=== PATIENT | female | born 1995 | race Caucasian/White ===

== ENCOUNTER 2023-09-29 09:46 | Outpatient (OUT) | payer OTHER, SELFPAY ==
--- NOTE | 2023-09-29 09:54 | US_ITS ---
Patient Name: INNA RAMESH MR#: [id number] : 1995 Exam Date: 09/29/2023 Ordering Doctor: DR Brian Fernandez . RADIOLOGY REPORT PROCEDURE: MM TOMOSYNTHESIS DIAGNOSTIC BI, 09/29/2023, 10:36 US BREAST RT LIMITED, 09/29/2023, 09:20 COMPARISON: None. INDICATIONS: Breast Mass N63.0 Calculator Name NCI Breast Cancer Risk Assessment Tool 5 Year Breast Cancer Risk Not Reported. Lifetime Breast Cancer Risk Not Reported. Personal Breast Cancer No Personal Ovarian Cancer No Treatments None Family Cancers None LOCATION: [facility] BREAST COMPOSITION: Extremely dense, which lowers the sensitivity of mammography. FINDINGS: DIAGNOSTIC CATEGORY 1--NEGATIVE. RIGHT BREAST: No suspicious finding on mammographic and ultrasound evaluation. No abnormal or suspicious findings to account for patient's palpable lump. LEFT BREAST: No suspicious finding. RECOMMENDATIONS: CLINICAL EVALUATION. PLEASE NOTE: A NORMAL MAMMOGRAM DOES NOT EXCLUDE THE POSSIBILITY OF BREAST CANCER. A CLINICALLY SUSPICIOUS PALPABLE LUMP SHOULD BE BIOPSIED. Dictated by: Anthony Mccarthy M.D. on 09/29/2023 at 11:06 Approved by: Anthony Mccarthy M.D. on 09/29/2023 at 11:08
== END 2023-09-29 09:47 | disposition home or self-care (01) ==
LOC: MAMMO 09:48
PROVIDERS: PCP Family Medicine; Visit Provider Family Medicine
DX: N63.0 Unspecified lump in unspecified breast (principal)
CPT/HCPCS: 76642; 77066; G0279

== ENCOUNTER 2024-03-10 13:57 | Outpatient (REF) | payer OTHER, SELFPAY ==
--- OUTSIDE RECORDS SUMMARY | 2024-03-10 14:11 | XMS_ITS | CCD ---
Author Organization [facility] Care Team Providers Care Bioinformatics Associate Name Role Phone MD Chinmay Fernandez Primary Care Provider [phone] MD Christian Birch Jr Emergency Provider MD Chinmay Fernandez Primary Care Provider [phone] BHAVAN Jacobson Emergency Provider [phone] Christian Birch Jr Admitting Unavailable Christian Birch Jr Attending Unavailable Chinmay Fernandez Primary Care Unavailable Robert Jacobson Admitting Unavailable Robert Jacobson Attending Unavailable Chinmay Fernandez Primary Care Unavailable HOY ., DR MOY Admitting Unavailable HOY ., DR MOY Attending Unavailable HOY ., DR MOY Primary Care Unavailable HOY ., DR MOY Attending Unavailable HOY ., DR MOY Consulting Unavailable HOY ., DR MOY Primary Care Unavailable HOY ., DR MOY Admitting Unavailable DAVIS[place], DR LOR Celestin Consulting Unavailable KARASIK ., DR OCHOA Admitting Unavailabl e HOY ., DR MOY Primary Care Unavailable KARASIK ., DR OCHOA Attending Unavailabl e KARASIK ., DR OCHOA Consulting Unavailabl e HOY ., DR MOY Attending Unavailable HOY ., DR MOY Consulting Unavailable HOY ., DR MOY Primary Care Unavailable HOY ., DR MOY Admitting Unavailable ZIEBER, DR CHRISTIAN Villatoro Consulting Unavailable HOY ., DR MOY Attending Unavailable HOY ., DR MOY Consulting Unavailable HOY ., DR MOY Primary Care Unavailable HOY ., DR MOY Admitting Unavailable HOY ., DR MOY Primary Care Unavailable DIAB ., CONNIE Admitting Unavailable RUPA WEIR Consulting Unavaila ble DIAB ., CONNIE Attending Unavailable DIAB ., CONNIE Consulting Unavailable HAY ., DR JENSEN Admitting Unavailable GRECHNY .ISABEL Consulting UnavailPatrick Ernandez, DR JENSEN Attending Unavailable KARINA Ernandez, DR MOY Primary Care Unavailable CLARISSA PETTIT Consulting Unavailable REBA DELEON Consulting Unavailable DR CHINMAY ALMONTE Primary Care Unavailable VALENTINA, DR MADISON Admitting Unavailable VALENTINA, DR MADISON Attending Unavailable VALENTINA, DR MADISON Consulting Unavailable Ayo MCCOLLUM Attending Unavailable VICTOR HUGO WADE Attending Unavailable Allergies Allergy Classification Reported Allergen(s) Allergy Type Date of Onset Reaction(s) Facility (5 sources) Amoxicillin; Translations: [amoxicillin] Drug Allergy 01-14-2014 [facility] Medications Current Medications Medication Drug Class(es) Dates Sig (Normalized) Sig (Original) acetaminophen 325 mg / oxyCODONE hydrochloride 5 mg oral tablet (1 source) Opioid Agonist Start: 10-29-2022 take 1 tablet by mouth every six hours Oxycodone-Acetam inophen (Percocet) 5-325 mg tablet Active 1 TAB PO Q6H 10 October 29, 2022 cephalexin 500 mg oral capsule (1 source) Cephalosporin Antibacterial Start: 10-29-2022 take 500 mg by mouth every eight hours Cephalexin Active 500 MG PO Q8H 21 October 29, 2022 12:00am ipratropium bromide 0.042 mg/actuat metered dose nasal spray (2 sources) Anticholinergic Start: 07-27-2022 Ipratropium [place] Active 2 SPRAY INTRANASAL Daily July 27, 2022 1:00am montelukast 10 mg oral tablet (2 sources) Leukotriene Receptor Antagonist Start: 07-27-2022 take 10 mg by mouth once daily Montelukast Active 10 MG PO Daily July 27, 2022 1:00am ondansetron 4 mg disintegrating oral tablet (3 sources) Serotonin-3 Receptor Antagonist Start: 10-29-2022 take 4 mg by mouth four times daily Ondansetron Active 4 MG PO Four times daily October 29, 2022 12:00am Start: 07-28-2022 take 4 mg by mouth e very eight hours Ondansetron Active 4 MG PO Q8H July 28, 2022 1:00am promethazine hydrochloride 25 mg oral tablet (2 sources) Phenothiazine Start: 07-28-2022 take 25 mg by mouth every six hours Promethazine Active 25 MG PO Q6H 15 July 28, 2022 1:00am triamcinolone acetonide 0.055 mg/actuat metered dose nasal spray (2 sources) Corticosteroid Start: 07-27-2022 take 1 spray(s) nasal route once daily Triamcinolone Acetonide (Nasacort) 55 mcg Aerosol,[place] Active 1 SPRAY INTRANASAL Daily July 27, 2022 1:00am administer into each nostril Completed/Discontinued Medications Medication Drug Class(es) Dates Sig (Normalized) Sig (Original) fluconazole 100 mg oral tablet (2 sources) Azole Antifungal Start: 07-27-2022 End: 07-27-2022 Fluconazole Discontinued MG TABLET July 27, 2022 1:00am July 27, 2022 11:14pm Problems Active Problems Problem Classification Problem Date Documented Date Episodic/Chronic Abdominal pain (6 sources) Acute abdominal pain; Translations: [Right upper quadrant pain] Onset: 10-29-2022 10-29-2022 Episodic Asthma (1 source) Unspecified asthma, uncomplicated; Translations: [UNSPECIFIED ASTHMA UNCOMPLICATED] Onset: 10-26-2022 Chronic Fluid and electrolyte disorders (2 sources) Dehydration; Translations: [Dehydration] 07-28-2022 Episodic Menstrual disorders (4 sources) Excessive and frequent menstruation with irregular cycle; Translations: [EXCESS AND FREQ MEN W/IRREG CYCLE] Onset: 06-17-2022 Chronic Nausea and vomiting (6 sources) Nausea and vomiting; Translations: [Nausea with vomiting, unspecified] Onset: 07-27-2022 07-28-2022 Episodic Noninfectious gastroenteritis (1 source) Noninfective gastroenteritis and colitis, unspecified; Translations: [NONINFECTIVE GE AND COLITIS UNS] Onset: 08-18-2022 Episodic Other aftercare (1 source) dedicated intermodal truck driver (current) use of hormonal contraceptives; Translations: [CATERING BARISTA HORMONAL CONTRACEPTIVES] Onset: 10-26-2022 Episodic Other aftercare (1 source) Other fci (current) drug therapy; Translations: [OTH CATERING BARISTA CURRENT DRUG THERAPY] Onset: 10-26-2022 Episodic Unclassified (1 source) CONTACT W/AND (SUSP) EXPOS COVID-19; Translations: [CONTACT W/AND (SUSP) EXPOS COVID-19] Onset: 10-26-2022 Past or Other Problems Problem Classification Problem Date Documented Date Episodic/Chronic Immunizations and screening for infectious disease (1 source) Encounter for screening for human papillomavirus (HPV); Translations: [ENC SCREENING HUMAN PAPILLOMAVIRUS] Onset: 07-02-2022 Episodic Other screening for suspected conditions (not mental disorders or infectious disease) (5 sources) Encounter for screening for malignant neoplasm of cervix; Translations: [Encounter for screening for diabetes mellitus] Onset: 06-29-2022 Episodic Ovarian cyst (5 sources) Other ovarian cyst, right side; Translations: [Other ovarian cyst, left side] Onset: 08-05-2022 Episodic Results Test Name Value Interpretation Reference Range Facility [facility] 12-03-2022 Forms [id number]:127 Normal [facility] Ambulatory Visit Summaryon 0 12-01-2022 Ambulatory Visit Summary SEA WRIGHT :1995 Visit Date:12/01/2022 Ambulatory Visit Instructions Your Care Team Attending Physician - CHUN WATT, Ayo Villatoro Primary Care Physician - Chinmay Fernandez MD This Is Your Medications List Contact prescribing physician if questions or concerns dicyclomine (dicyclomine 20 mg Tab) montelukast (Singulair 10 mg Tab) ondansetron (ondansetron 4 mg Dis Tab) pantoprazole (Protonix 40 mg Tab-DR) sucralfate (sucralfate 1 g Tab) Procedures Performed Colonoscopy (06/07/2019), Esophagogastroduodenoscopy (06/07/2019). Discharge Vitals Heart Rate (Peripheral) 72 Respiratory Rate 16 Blood Pressure 108/56 Height 150.5 cm Height 59 in Weight 48 kg Weight 105.6 lb BMI 21.19 Medications What How Much When Instructions Unchanged dicyclomine (dicyclomine 20 mg Tab) 2 Tablets By Mouth 3 times a day Contact prescribing physician if questions or concerns Unchanged montelukast (Singulair 10 mg Tab) 1 Tablets By Mouth Every day Contact prescribing physician if questions or concerns Unchanged ondansetron (ondansetron 4 mg Dis Tab) 1 Tablets By Mouth 4 times a day as needed for Nausea/Vomiting Contact prescribing physician if questions or concerns Unchanged pantoprazole (Protonix 40 mg Tab-DR) 1 Tablets By Mouth Every day Contact prescribing physician if questions or concerns Unchanged sucralfate (sucralfate 1 g Tab) 1 Tablets By Mouth 4 times a day Contact prescribing physician if questions or concerns Allergies amoxicillin (Rash) Problems Ongoing - Any problem that you are currently receiving treatment for. Antral gastritis Asthma BMI 21.0-21.9, adult History of Clostridium difficile colitis Iron deficiency anemia Scoliosis Seasonal allergic rhinitis Historical - Any problem that you are no longer receiving treatment for. Abdominal pain, colicky Diarrhea Iron deficiency anemia Weight loss Normal [facility] ED Note-Physicianon 12-01-19 ED Note-Physician [id number]:127 [facility] Lab Reportson 11-30-2022 Lab Reports [id number]#[id number]:127 [facility] ED Note-Physicianon 11-13-19 ED Note-Physician [id number]:127 [facility] Patient Correspondenceon Patient Correspondence [id number]:127 [facility] RAD - CT Reporton 11-12-2022 RAD - CT Report [id number]:127 [facility] RAD - CT Report [id number]:127 [facility] RAD - Ultrasound Reporton RAD - Ultrasound Report [id number]:127 [facility] Physician Referralon 023 Physician Referral [id number]#1.00CD:127 [facility] OVA AND PARASITE EXAMINATION on 11-06-2022 Ova + Parasite Exam Final report Normal [facility] Comment on above: Result Comment: Thes e results were obtained using wet preparation(s) and trichrome stained smear. This test does not include testing for Cryptosporidium parvum, Cyclospora, or Microsporidia. Performed By: #### G IPANEL #### [facility] [address] [place] [address] Dr. Adriana Chawla Result 1 Comment Normal [facility] Comment on above: Result Comment: No o va, cysts, or parasites seen. . One negative specimen does not rule out the possibility of a parasitic infection. Performed By: #### G IPANEL #### [facility] [address] [place] [address] Dr. Adriana Chawla GI PANEL (PCR)on 11-03-2022 Adenovirus F 40/41 Not detected Normal NOT DETECTED [facility] Comment on above: Performed By: #### G IPANEL #### [facility] [address] [place] [address] Dr. Adriana Chawla Astrovirus Not detected Normal NOT DETECTED [facility] Comment on above: Performed By: #### G IPANEL #### [facility] [address] [place] [address] Dr. Adriana Chawla C. Diff toxin A/B Detected Critically abnormal NOT DETECTED [facility] Comment on above: Performed By: #### G IPANEL #### [facility] [address] [place] [address] Dr. Adriana Chawla Campylobacter Not detected Normal NOT DETECTED [facility] Comment on above: Performed By: #### G IPANEL #### [facility] [address] [place] [address] Dr. Adriana Chawla Cryptosporidium Not detected Normal NOT DETECTED [facility] Comment on above: Performed By: #### G IPANEL #### [facility] [address] [place] [address] Dr. Adriana Chawla Cyclos. Cayetanensis Not detected Normal NOT DETECTED [facility] Comment on above: Performed By: #### G IPANEL #### [facility] [address] [place] [address] Dr. Adriana Chawla E. Coli O157 Not Applicable Normal Not Applicable [facility] Comment on above: Performed By: #### G IPANEL #### [facility] [address] [place] [address] Dr. Adriana Chawla EAwais histolytica Not detected Normal NOT DETECTED [facility] Comment on above: Performed By: #### G IPANEL #### [facility] [address] [place] [address] Dr. Adriana Chawla EAEC Not detected Normal NOT DETECTED [facility] Comment on above: Performed By: #### G IPANEL #### [facility] [address] [place] [address] Dr. Adriana Chawla EIEC Not detected Normal NOT DETECTED [facility] Comment on above: Performed By: #### G IPANEL #### [facility] [address] [place] [address] Dr. Adriana Chawla EPEC Not detected Normal NOT DETECTED [facility] Comment on above: Performed By: #### G IPANEL #### [facility] [address] [place] [address] Dr. Adriana Chawla ETEC Not detected Normal NOT DETECTED [facility] Comment on above: Performed By: #### G IPANEL #### [facility] [address] [place] [address] Dr. Adriana Nava Lamblia Not detected Normal NOT DETECTED [facility] Comment on above: Performed By: #### G IPANEL #### [facility] [address] [place] [address] Dr. Adriana BAHENA CONTROLS PASSED Normal [facility] Comment on above: Performed By: #### G IPANEL #### [facility] [address] [place] [address] Dr. Adriana HUNTER ARPITA HEADER GI PANEL BACTERIA Normal T [facility] Comment on above: Performed By: #### G IPANEL #### [facility] [address] [place] [address] Dr. Adriana HUNTERHD ECOLI GI PANEL DIARRHEAGEN IC E.COLI / SHIGELLA Normal [facility] Comment on above: Performed By: #### G IPANEL #### [facility] [address] [place] [address] Dr. Adriana PADRON INFO SEE BELOW Normal [facility] Comment on above: Result Comment: EAEC - Enteroaggregative E. Coli EPEC- Enteropathogenic E. Coli ETEC- Enterotoxigenic E. Coli lt/st STEC- Shigella-like toxin-producing E. Coli stx1/stx2 EIEC- Shigella/Enteroinvasive E. Coli Performed By: #### G IPANEL #### [facility] [address] [place] [address] Dr. Adriana PADRON PARASITES GI PANEL PARASITES Normal [facility] Comment on above: Performed By: #### G IPANEL #### [facility] [address] [place] [address] Dr. Adriana PADRON VIRUS GI PANEL VIRUSES Normal [facility] Comment on above: Performed By: #### G IPANEL #### [facility] [address] [place] [address] Dr. Adriana Chawla Norovirus GI/GII Not detected Normal NOT DETECTED [facility] Comment on above: Performed By: #### G IPANEL #### [facility] [address] [place] [address] Dr. Adriana Chawla P. Shigelloides Not detected Normal NOT DETECTED [facility] Comment on above: Performed By: #### G IPANEL #### [facility] [address] [place] [address] Dr. Adriana Chawla Rotavirus A Not detected Normal NOT DETECTED [facility] Comment on above: Performed By: #### G IPANEL #### [facility] [address] [place] [address] Dr. Adriana Chawla Salmonella Not detected Normal NOT DETECTED [facility] Comment on above: Performed By: #### G IPANEL #### [facility] [address] [place] [address] Dr. Adriana Chawla Sapovirus Not detected Normal NOT DETECTED [facility] Comment on above: Performed By: #### G IPANEL #### [facility] [address] [place] [address] Dr. Adriana Chawla STEC Not detected Normal NOT DETECTED [facility] Comment on above: Performed By: #### G IPANEL #### [facility] [address] [address] [address] Adriana Chawla Vibrio Not detected Normal NOT DETECTED [facility] Comment on above: Performed By: #### G IPANEL #### [facility] [address] [address] [address] Adriana Chawla Vibrio Cholera Not detected Normal NOT DETECTED [facility] Comment on above: Performed By: #### G IPANEL #### [facility] [address] [address] [address] Adriana Chawla Y. Enterocolitica Not detected Normal NOT DETECTED [facility] Comment on above: Performed By: #### G IPANEL #### [facility] [address] [address] [address] Adriana Chawla OCC BLD IMMUNO SCREENon 10-15 OCCULT BLOOD Negative Normal NEGATIVE [facility] Comment on above: Performed By: #### V AGINT #### [facility] [address] [address] [address] Adriana Chawla Alanine aminotransferase [En zymatic activity/volume] in Serum or PlasmaOrdered By: Robert Jacobson on 10-29-2022 ALT [Catalytic activity/Vol] 10 U/L 7-52 [facility] Albumin [Mass/volume] in Ser um or Plasma by Bromocresol green (BCG) dye binding methoOrdered By: Robert Jacobson on 10-29-2022 Albumin BCG dye [Mass/Vol] 4.5 g/dL 3.5-5.7 [facility] Alkaline phosphatase [Enzyma tic activity/volume] in Serum or PlasmaOrdered By: Robert Jacobson on 10-29-2022 ALP [Catalytic activity/Vol] 36 U/L 34-104 [facility] Amphetamine Screen Ql (U)Ord ered By: Robert Jacobson on 10-29-2022 Amphetamines Ql (U) Negative Negative [facility] Aspartate aminotransferase [ Enzymatic activity/volume] in Serum or PlasmaOrdered By: Robert Jacobson on 10-29-2022 AST [Catalytic activity/Vol] 14 U/L 13-39 [facility] Automated erythrocytes count in urine sediment (number/area)Ordered By: Robert Jacobson on 10-29-2022 RBC Auto (Urine sed) [#/Area] 0-1 [HPF] 0-4 [facility] Automated leukocytes count i n urine sediment (number/area)Ordered By: Robert Jacobson on 10-29-2022 WBC Auto (Urine sed) [#/Area] 10-19 [HPF] 0-4 [facility] Barbiturates [Presence] in U rine by Screen methodOrdered By: Robert Jacobson on 10-29-2022 Barbiturates Screen Ql (U) Negative Negative [facility] Basic Metabolic Panelon 10-14 Anion gap [Moles/Vol] 11.6 mmol/L Normal 6.0-15.0 [facility] Comment on above: Performed By: #### C UU, ADDONUAPLUS, UHCG #### [facility] [address] Calcium [Mass/Vol] 8.9 mg/dL Normal 8.6-10.3 [facility] Comment on above: Performed By: #### C UU, ADDONUAPLUS, UHCG #### [facility] [address] [place] [address] [place] Chloride [Moles/Vol] 105 mmol/L Normal 98-107 [facility] Comment on above: Performed By: #### C UU, ADDONUAPLUS, UHCG #### [facility] [address] [id number] [place] CO2 [Moles/Vol] 24.0 mmol/L Normal 21.0-31.0 [facility] Comment on above: Performed By: #### C UU, ADDONUAPLUS, UHCG #### [facility] [address] [id number] [place] Creatinine [Mass/Vol] 0.67 mg/dL Normal 0.60-1.20 [facility] Comment on above: Performed By: #### C UU, ADDONUAPLUS, UHCG #### [facility] [address] [id number] [place] Creatinine Clr Calc Pharmacy 92.[address] [facility] Comment on above: Performed By: #### C TREY KUHN BalwinderG #### [address] GFR/1.73 sq M.predicted MDRD (S/P/Bld) [Vol rate/Area] mL/min/{1.73_m2} [facility] Comment on above: Performed By: #### C TREY KUHN BalwinderG #### [address] Glucose [Mass/Vol] 82 mg/dL Normal 74-109 [facility] Comment on above: Result Comment: [facility] Glucose Reference Range is dependent on time and content of last meal. Glucose of more than 200 mg/dL in a nonstressed, ambulatory subject supports the diagnosis of Diabetes Mellitus. ADA recommended reference range Performed By: #### C TREY KUHN UHCG #### [address] Potassium [Moles/Vol] 3.6 mmol/L Normal 3.5-5.1 [facility] Comment on above: Performed By: #### TREY BURKS BalwinderG #### [address] Sodium [Moles/Vol] 137 mmol/L Normal 136-145 [facility] Comment on above: Performed By: #### TREY BURKS JODI #### [address] Urea nitrogen [Mass/Vol] 12 mg/dL Normal 7-25 [facility] Comment on above: Performed By: #### TREY BURKS BalwinderG #### [address] Basophils Auto (Bld) [#/Vol] Ordered By: Robert Jacobson on 10-29-2022 Basophils (Bld) [#/Vol] 0.0 10*3/uL 0.0-0.2 [facility] Basophils/100 WBC Auto (Bld) Ordered By: Robert Jacobson on 10-29-2022 Basophils/100 WBC (Bld) 0.6 % . [facility] Benzodiazepines Screen Ql (U )Ordered By: Robert Jacobson on 10-29-2022 Benzodiazepines Ql (U) Negative Negative [facility] Benzoylecgonine [Presence] i n Urine by Screen methodOrdered By: Robert Jacobson on 10-29-2022 Benzoylecgonine Screen Ql (U) Negative Negative [facility] Bilirubin Test strip Ql (U)O rdered By: Robert Jacobson on 10-29-2022 Bilirubin Ql (U) Negative Negative [facility] Bilirubin.direct [Mass/volum e] in Serum or PlasmaOrdered By: Robert Jacobson on 10-29-2022 Bilirubin.direct [Mass/Vol] 0.10 mg/dL 0.03-0.18 [facility] Bilirubin.total [Mass/volume ] in Serum or PlasmaOrdered By: Robert Jacobson on 10-29-2022 Bilirubin [Mass/Vol] 0.3 mg/dL 0.3-1.0 [facility] Calcium [Mass/volume] in Ser um or PlasmaOrdered By: Robert Jacobson on 10-29-2022 Calcium [Mass/Vol] 8.9 mg/dL 8.6-10.3 [facility] Cannabinoids [Presence] in U rine by Screen methodOrdered By: Robert Jacobson on 10-29-2022 Cannabinoids Screen Ql (U) Negative Negative [facility] Comment on above: These are unconfirme d results and should not be used for legal purposes. Drug Cut-Off Concentration: AMPH 1000 ng/mL YENY 200 ng/mL ARELIS 200 ng/mL COCM 300 ng/mL OP 300 ng/mL PCP 25 ng/mL THC 20 ng/mL Carbon dioxide, total [Moles /volume] in Serum or PlasmaOrdered By: Robert Jacobson on 10-29-2022 CO2 [Moles/Vol] 24.0 mmol/L 21.0-31.0 [facility] Chloride [Moles/volume] in S justice or PlasmaOrdered By: Robert Jacobson on 10-29-2022 Chloride [Moles/Vol] 105 mmol/L 98-107 [facility] Color Auto (U)Ordered By: Chandler Jacobson on 10-29-2022 Color (U) Yellow Yellow [facility] Complete Blood Count Auto Di ffon 10-29-2022 Basophils (Bld) [#/Vol] 0.0 10*3/uL Normal 0.0-0.2 [facility] Comment on above: Result Comment: PERF ORMED BY: [place] [address] PATHOLOGIST HOTEL DESK CLERK АННА AJ M.D. Performed By: #### C BC, LACTIC, LIPASE, HS TROP, HEPATIC, DDIMER, BMP #### [address] Basophils/100 WBC (Bld) 0.6 % Normal . [facility] Comment on above: Performed By: #### C BC, LACTIC, LIPASE, HS TROP, HEPATIC, DDIMER, BMP #### [address] Eosinophils (Bld) [#/Vol] 0.1 10*3/uL Normal 0.0-0.45 [facility] Comment on above: Performed By: #### C BC, LACTIC, LIPASE, HS TROP, HEPATIC, DDIMER, BMP #### [address] Eosinophils/100 WBC (Bld) 0.8 % Normal . [facility] Comment on above: Performed By: #### C BC, LACTIC, LIPASE, HS TROP, HEPATIC, DDIMER, BMP #### [address] Erythrocyte distribution width (RBC) [Ratio] 14.6 % Normal 11.9-15.3 [facility] Comment on above: Performed By: #### C BC, LACTIC, LIPASE, HS TROP, HEPATIC, DDIMER, BMP #### [address] Hematocrit (Bld) [Volume fraction] 35.0 % Normal 34.0-46.4 [facility] Comment on above: Performed By: #### C BC, LACTIC, LIPASE, HS TROP, HEPATIC, DDIMER, BMP #### [address] Hemoglobin (Bld) [Mass/Vol] 11.7 g/dL Low 11.8-15.4 [facility] Comment on above: Performed By: #### C BC, LACTIC, LIPASE, HS TROP, HEPATIC, DDIMER, BMP #### [address] Lymphocytes (Bld) [#/Vol] 2.3 10*3/uL Normal 1.00-4.8 [facility] [place] Comment on above: Performed By: #### C BC, LACTIC, LIPASE, HS TROP, HEPATIC, DDIMER, BMP #### [address] Lymphocytes/100 WBC (Bld) 33.6 % Normal . [facility] Comment on above: Performed By: #### C BC, LACTIC, LIPASE, HS TROP, HEPATIC, DDIMER, BMP #### [address] MCH (RBC) [Entitic mass] 27.9 pg Normal 24.7-34.3 [facility] [place] Comment on above: Performed By: #### C BC, LACTIC, LIPASE, HS TROP, HEPATIC, DDIMER, BMP #### [address] MCV (RBC) [Entitic vol] 83.7 fL Normal 80-100 [facility] [place] Comment on above: Performed By: #### C BC, LACTIC, LIPASE, HS TROP, HEPATIC, DDIMER, BMP #### [address] Mean Corpuscular HGB Conc 33.3 g/dL Normal 32.0-35.0 [facility] [place] Comment on above: Performed By: #### C BC, LACTIC, LIPASE, HS TROP, HEPATIC, DDIMER, BMP #### [address] Monocytes (Bld) [#/Vol] 0.5 10*3/uL Normal 0.0-0.8 [facility] [place] Comment on above: Performed By: #### C BC, LACTIC, LIPASE, HS TROP, HEPATIC, DDIMER, BMP #### [facility] [address] [place] [address] [place] Monocytes/100 WBC (Bld) 18.05 % Normal 0.00-20.00 [facility] [place] Comment on above: Performed By: #### C BC, LACTIC, LIPASE, HS TROP, HEPATIC, DDIMER, BMP #### [address] Monocytes/100 WBC (Bld) 6.9 % Normal . [facility] Comment on above: Performed By: #### C BC, LACTIC, LIPASE, HS TROP, HEPATIC, DDIMER, BMP #### [address] Neutrophils (Bld) [#/Vol] 3.9 10*3/uL Normal 1.8-7.7 [facility] [place] Comment on above: Performed By: #### C BC, LACTIC, LIPASE, HS TROP, HEPATIC, DDIMER, BMP #### [place] [address] [place] Neutrophils/100 WBC (Bld) 58.1 % Normal . [facility] Comment on above: Performed By: #### C BC, LACTIC, LIPASE, HS TROP, HEPATIC, DDIMER, BMP #### [place] [address] [place] NRBC% 0.1 /100{WBC} Normal 0-0.5 [facility] [place] Comment on above: Performed By: #### C BC, LACTIC, LIPASE, HS TROP, HEPATIC, DDIMER, BMP #### [place] [address] [place] Platelet mean volume (Bld) [Entitic vol] 7.0 fL Normal 6.3-10.7 [facility] [place] Comment on above: Performed By: #### C BC, LACTIC, LIPASE, HS TROP, HEPATIC, DDIMER, BMP #### [place] [address] [place] Platelets (Bld) [#/Vol] 289 10*3/uL Normal 150-450 [facility] [place] Comment on above: Performed By: #### C BC, LACTIC, LIPASE, HS TROP, HEPATIC, DDIMER, BMP #### [facility] [address] RBC (Bld) [#/Vol] 4.18 10*6/uL Normal 3.60-5.00 [facility] Comment on above: Performed By: #### C BC, LACTIC, LIPASE, HS TROP, HEPATIC, DDIMER, BMP #### [facility] [address] WBC (Bld) [#/Vol] 6.7 10*3/uL Normal 3.8-11.6 [facility] Comment on above: Performed By: #### C BC, LACTIC, LIPASE, HS TROP, HEPATIC, DDIMER, BMP #### [facility] [address] Creatinine [Mass/volume] in Serum or PlasmaOrdered By: Robert Jacobson on 10-29-2022 Creatinine [Mass/Vol] 0.67 mg/dL 0.60-1.20 [facility] D-Dimer High Sensitivityon 0 10-29-2022 D-Dimer High Sensitivity < 200 Normal 0-243 [facility] [place] Comment on above: Result Comment: The reference range for D-dimer is <243 ng/mL D-dimer units. D-dimer results must be used in conjunction with a clinical pretest probability (PTP) assessment model for deep vein thrombosis (DVT) and pulmonary embolism (PE). Results <230 ng/mL d-dimer units can be used as a negative predictor in patients with low or moderate probability for DVT/PE. Results above the exclusion threshold of 230 ng/ml D-dimer units for DVT/PE may indicate the need for further diagnostic testing. D-Dimer can be increased in hospitalized patients due to co-morbid conditions. PERFORMED BY: [place] [address] PATHOLOGIST HOTEL DESK CLERK АННА AJ M.D. Performed By: #### C TREY KUHN [facility] #### [facility] [address] [place] [address] [place] Dipstick and Microscopicon 0 10-29-2022 Appearance (U) Cloudy Critically abnormal Clear [facility] Comment on above: Order Comment: Name Collection Type:: Clean-Voided Midstream Performed By: #### C UU, ADDONUAPLUS, UHCG #### [facility] [address] [place] [address] [place] Bacteria,Urine None Seen Normal None Seen [facility] Comment on above: Order Comment: Name Collection Type:: Clean-Voided Midstream Performed By: #### C UU, ADDONUAPLUS, UHCG #### [facility] [address] [place] [address] [place] Bilirubin,Urine Negative Normal Negative [facility] Comment on above: Order Comment: Name Collection Type:: Clean-Voided Midstream Performed By: #### C UU, ADDONUAPLUS, UHCG #### [address] Color (U) Yellow Normal Yellow [facility] Comment on above: Order Comment: Name Collection Type:: Clean-Voided Midstream Performed By: #### C UU, ADDONUAPLUS, UHCG #### [address] Glucose Ql (U) Normal Normal Normal [facility] Comment on above: Order Comment: Name Collection Type:: Clean-Voided Midstream Performed By: #### C UU, ADDONUAPLUS, UHCG #### [facility] [address] [place] [address] [place] Hyaline Casts,Urine 0-8 Normal 0-8 [facility] Comment on above: Order Comment: Name Collection Type:: Clean-Voided Midstream Performed By: #### C UU, ADDONUAPLUS, UHCG #### [place] [address] [place] Ketones Ql (U) Negative Normal Negative [facility] Comment on above: Order Comment: Name Collection Type:: Clean-Voided Midstream Performed By: #### C UU, ADDONUAPLUS, UHCG #### [facility] [address] [place] [address] Leukocyte esterase Test strip Ql (U) 3+ High Negative [facility] Comment on above: Order Comment: Name Collection Type:: Clean-Voided Midstream Performed By: #### C UU, ADDONUAPLUS, UHCG #### [address] Nitrite,Urine Negative Normal Negative [facility] Comment on above: Order Comment: Name Collection Type:: Clean-Voided Midstream Performed By: #### C UU, ADDONUAPLUS, UHCG #### [address] Occult Blood,Urine Negative Normal Negative [facility] Comment on above: Order Comment: Name Collection Type:: Clean-Voided Midstream Performed By: #### C UU, ADDONUAPLUS, UHCG #### [address] pH (U) 6.0 [pH] Normal 5.0-9.0 [facility] Comment on above: Order Comment: Name Collection Type:: Clean-Voided Midstream Performed By: #### C UU, ADDONUAPLUS, UHCG #### [address] Protein,Urine Trace High Negative [facility] Comment on above: Order Comment: Name Collection Type:: Clean-Voided Midstream Performed By: #### C UU, ADDONUAPLUS, UHCG #### [place] [address] [place] RBC LM.HPF (Urine sed) [#/Area] 0 /[HPF] Normal 0-4 [facility] Comment on above: Order Comment: Name Collection Type:: Clean-Voided Midstream Performed By: #### C UU, ADDONUAPLUS, UHCG #### [address] Specificy [place],Urine 1.024 Normal 1.001-1.030 [facility] Comment on above: Order Comment: Name Collection Type:: Clean-Voided Midstream Performed By: #### C UU, ADDONUAPLUS, UHCG #### [facility] [address] Squamous Epithelial Cell,Urine 5-9 High 0-2 [facility] Comment on above: Order Comment: Name Collection Type:: Clean-Voided Midstream Performed By: #### C UU, ADDONUAPLUS, UHCG #### [facility] [address] [place] [address] Urobilinogen,Urine Normal Normal Normal [facility] Comment on above: Order Comment: Name Collection Type:: Clean-Voided Midstream Performed By: #### C UU, ADDONUAPLUS, UHCG #### [facility] [address] [place] [address] WBC,Urine 10-19 High 0-4 [facility] Comment on above: Order Comment: Name Collection Type:: Clean-Voided Midstream Performed By: #### C UU, ADDONUAPLUS, UHCG #### [facility] [address] [place] [address] [place] Drug Screen,Urineon 10-30-19 23 Amphetamine Screen,Urine Negative Normal Negative [facility] Comment on above: Performed By: #### C UU, ADDONUAPLUS, UHCG #### [facility] [address] [place] [address] [place] Barbiturate Screen,Urine Negative Normal Negative [facility] Comment on above: Performed By: #### C UU, ADDONUAPLUS, UHCG #### [facility] [address] [place] [address] [place] Benzodiazepines Screen,Urine Negative Normal Negative [facility] Comment on above: Performed By: #### C UU, ADDONUAPLUS, UHCG #### [facility] [address] [place] [address] Cannabinoid Screen,Urine Negative Normal Negative [facility] Comment on above: Result Comment: Thes e are unconfirmed results and should not be used for legal purposes. Drug Cut-Off Concentration: AMPH 1000 ng/mL YENY 200 ng/mL ARELIS 200 ng/mL COCM 300 ng/mL OP 300 ng/mL PCP 25 ng/mL THC 20 ng/mL PERFORMED BY: [place] [address] PATHOLOGIST HOTEL DESK CLERK АННА AJ M.D. Performed By: #### C UU, ADDONUAPLUS, UHCG #### [address] Cocaine Screen,Urine Negative Normal Negative [facility] Comment on above: Performed By: #### C UU, ADDONUAPLUS, UHCG #### [address] Opiate Screen,Urine Negative Normal Negative [facility] Comment on above: Performed By: #### C UU, ADDONUAPLUS, UHCG #### [address] Phencyclidine Screen,Urine Negative Normal Negative [facility] Comment on above: Performed By: #### C UU, ADDONUAPLUS, UHCG #### [address] ECG 12 lead ECGon 10-29-2022 ECG 12 lead ECG [facility] [place] [address] Electrocardiograph Report Signed Patient: Sea Wright MR#: [id number] 6 : 1995 Acct:[id number] Age/Sex: 27 / F ADM Date: 10/29/22 Loc: ER Room: Type: [facility] ER Attending Dr: Ordering Provider: Robert Jacobson PA-C Date of Service: 10/29/22 ECG/ECG 12 lead ECG: Abdominal Pain Copies to: Test Reason : Blood Pressure : 109/066 mmHG Vent. Rate : 070 BPM Atrial Rate : 070 BPM P-R Int : 164 ms QRS Dur : 084 ms QT Int : 394 ms P-R-T Axes : 051 090 071 degrees QTc Int : 425 ms Normal sinus rhythm with sinus arrhythmia Confirmed by Jose OLGUIN DO ([id number]) on 10/29/2022 8:59:01 PM Referred By: Electronically Signed By:Jose OLGUIN DO Transcribed By: MUS Signed By Jose Olguin DO 0 10/29/222058 Normal [facility] Eosinophils Auto (Bld) [#/Vo l]Ordered By: Robert Jacobson on 10-29-2022 Eosinophils (Bld) [#/Vol] 0.1 10*3/uL 0.0-0.45 [facility] Eosinophils/100 WBC Auto (Bl d)Ordered By: Robert Jacobson on 10-29-2022 Eosinophils/100 WBC (Bld) 0.8 % . [facility] Erythrocyte distribution wid th Auto (RBC) [Ratio]Ordered By: Robert Jacobson on 10-29-2022 Erythrocyte distribution width (RBC) [Ratio] 14.6 % 11.9-15.3 [facility] Globulin Calc (S) [Mass/Vol] Ordered By: Robert Jacobson on 10-29-2022 Globulin (S) [Mass/Vol] 2.6 g/dL [facility] Glucose [Mass/volume] in Ser um or PlasmaOrdered By: Robert Jacobson on 10-29-2022 Glucose [Mass/Vol] 82 mg/dL 74-109 [facility] Comment on above: ADA recommended refe rence rangeRandom Glucose Reference Range is dependent on time and content of last meal. Glucose of more than 200 mg/dL in a nonstressed, ambulatory subject supports the diagnosis of Diabetes Mellitus. HCG ( test) Amada hargrove Ql (U)Ordered By: PROVIDER TEMDennis on 10-29-2022 HCG ( test) Ql (U) Negative [facility] HCG,Urineon 10-29-2022 Beta HCG ( test) Ql (U) Negative Normal [facility] Comment on above: Order Comment: Name Collection Type:: Clean-Voided Midstream Result Comment: PERF ORMED BY: [facility] [address] [place] [address] PATHOLOGIST HOTEL DESK CLERK АННА AJ M.D. Performed By: #### C TREY KUHN [facility] #### [facility] [address] Hematocrit Auto (Bld) [Volum e fraction]Ordered By: Robert Jacobson on 10-29-2022 Hematocrit (Bld) [Volume fraction] 35.0 % 34.0-46.4 [facility] Hemoglobin [Mass/volume] in BloodOrdered By: Robert Jacobson on 10-29-2022 Hemoglobin (Bld) [Mass/Vol] 11.7 g/dL 11.8-15.4 [facility] Hepatic Panelon 10-29-2022 Albumin [Mass/Vol] 4.5 g/dL Normal 3.5-5.7 [facility] Comment on above: Performed By: #### TREY BURKS JODI #### [facility] [address] Albumin/Globulin [Mass ratio] 1.7 {ratio} Normal [facility] Comment on above: Performed By: #### C TREY KUHN JODI #### [facility] [address] [place] [address] ALP [Catalytic activity/Vol] 36 U/L Normal 34-104 [facility] Comment on above: Performed By: #### [facility] #### [facility] [address] [place] [address] ALT [Catalytic activity/Vol] 10 U/L Normal 7-52 [facility] Comment on above: Performed By: #### [facility] #### [facility] [address] [place] [address] [place] AST [Catalytic activity/Vol] 14 U/L Normal 13-39 [facility] Comment on above: Performed By: #### TREY BURKS JODI #### [facility] [address] [place] [address] Bilirubin [Mass/Vol] 0.3 mg/dL Normal 0.3-1.0 [facility] Comment on above: Performed By: #### TREY BURKS CG #### [facility] [address] Bilirubin,Indirect 0.2 mg/dL Normal [facility] Comment on above: Performed By: #### C UU, ADDONUAPLUS, UHCG #### [facility] [address] Bilirubin.indirect [Mass/Vol] 0.10 mg/dL Normal 0.03-0.18 [facility] Comment on above: Performed By: #### C UU, ADDONUAPLUS, CG #### [facility] [address] Globulin (S) [Mass/Vol] 2.6 g/dL Normal [facility] Comment on above: Performed By: #### C UU, ADDONUAPLUS, UHCG #### [facility] [address] Protein [Mass/Vol] 7.1 g/dL Normal 6.4-8.9 [facility] Comment on above: Performed By: #### C UU, ADDONUAPLUS, CG #### [facility] [address] [place] [address] Ketones Auto test strip (U) [Mass/Vol]Ordered By: Robert Jacobson on 10-29-2022 Ketones (U) [Mass/Vol] Negative Negative [facility] - Chemistry and C hemistry - challengeOrdered By: Robert Jacobson on 10-29-2022 GFR/1.73 sq M.predicted MDRD (S/P/Bld) [Vol rate/Area] mL/min/{1.73_m2} [facility] Laboratory - UrinalysisOrder ed By: Robert Jacobson on 10-29-2022 Hyaline casts LM Ql (Urine sed) 0-8 [LPF] 0-8 [facility] Lactate [Moles/volume] in Se rum or PlasmaOrdered By: Robert Jacobson on 10-29-2022 Lactate [Moles/Vol] 0.6 mmol/L 0.5-2.2 [facility] Lactic Acidon 10-29-2022 Lactate [Moles/Vol] 0.6 mmol/L Normal 0.5-2.2 [facility] Comment on above: Result Comment: PERF ORMED BY: [place] [address] PATHOLOGIST HOTEL DESK CLERK АННА AJ M.D. Performed By: #### TREY BURKS [facility] #### [address] Leukocytes [#/volume] correc lucho for nucleated erythrocytes in Blood by Automated counOrdered By: Robert Jacobson on 10-29-2022 WBC corrected for nucl RBC Auto (Bld) [#/Vol] 6.7 10*3/uL 3.8-11.6 [facility] Lipaseon 10-29-2022 Lipase [Catalytic activity/Vol] 15.0 U/L Normal 11.0-82.0 [facility] Comment on above: Result Comment: PERF ORMED BY: [place] [address] PATHOLOGIST HOTEL DESK CLERK АННА AJ M.D. Performed By: #### TREY BURKS [facility] #### [address] Lipase [Enzymatic activity/v olume] in Serum or PlasmaOrdered By: Robert Jacobson on 10-29-2022 Lipase [Catalytic activity/Vol] 15.0 U/L 11.0-82.0 [facility] Lymphocytes Auto (Bld) [#/Vo l]Ordered By: Robert Jacobson on 10-29-2022 Lymphocytes (Bld) [#/Vol] 2.3 10*3/uL 1.00-4.8 [facility] Lymphocytes/100 WBC Auto (Bl d)Ordered By: Robert Jacobson on 10-29-2022 Lymphocytes/100 WBC (Bld) 33.6 % . [facility] MCH Auto (RBC) [Entitic mass ]Ordered By: Robert Jacobson on 10-29-2022 MCH (RBC) [Entitic mass] 27.9 pg 24.7-34.3 [facility] MCHC Auto (RBC) [Mass/Vol]Or dered By: Robert Jacobson on 10-29-2022 MCHC (RBC) [Mass/Vol] 33.3 g/dL 32.0-35.0 [facility] MCV Auto (RBC) [Entitic vol] Ordered By: Robert Jacobson on 10-29-2022 MCV (RBC) [Entitic vol] 83.7 fL 80-100 [facility] Monocyte distribution width [Entitic volume] in Blood by AutomatedOrdered By: Robert Jacobson on 10-29-2022 Monocyte distribution width Auto (Bld) [Entitic vol] 18.05 % 0.00-20.00 [facility] Monocytes Auto (Bld) [#/Vol] Ordered By: Robert Jacobson on 10-29-2022 Monocytes (Bld) [#/Vol] 0.5 10*3/uL 0.0-0.8 [facility] Monocytes/100 WBC Auto (Bld) Ordered By: Robert Jacobson on 10-29-2022 Monocytes/100 WBC (Bld) 6.9 % . [facility] Neutrophils Auto (Bld) [#/Vo l]Ordered By: Robert Jacobson on 10-29-2022 Neutrophils (Bld) [#/Vol] 3.9 10*3/uL 1.8-7.7 [facility] Neutrophils/100 WBC Auto (Bl d)Ordered By: Robert Jacobson on 10-29-2022 Neutrophils/100 WBC (Bld) 58.1 % . [facility] Nitrite Test strip Ql (U)Ord ered By: Robert Jacobson on 10-29-2022 Nitrite Ql (U) Negative Negative [facility] No Panel InformationOrdered By: Robert Jacobson on 10-29-2022 D-Dimer Quantitative (PE/DVT) < 200 ng/mL 0-243 [facility] Comment on above: The reference range for D-dimer is <243 ng/mL D-dimer units.D-dimer results must be used in conjunction with a clinicalpretest probability (PTP) assessment model for deep veinthrombosis (DVT) and pulmonary embolism (PE). Results <230ng/mL d-dimer units can be used as a negative predictor inpatients with low or moderate probability for DVT/PE.Results above the exclusion threshold of 230 ng/ml D-dimerunits for DVT/PE may indicate the need for furtherdiagnostic testing.D-Dimer can be increased in hospitalized patients due toco-morbid conditions. Pharmacy Creatinine Clearance (Chem 92.20 [facility] Nucleated erythrocytes [Pres ence] in Blood by Automated countOrdered By: Robert Jacobson on 10-29-2022 Nucleated RBC Auto Ql (Bld) 0.1 /100{WBC} 0-0.5 [facility] Opiates [Presence] in Urine by Screen methodOrdered By: Robert Jacobson on 10-29-2022 Opiates Screen Ql (U) Negative Negative [facility] Phencyclidine Screen Ql (U)O rdered By: Robert Jacobson on 10-29-2022 Phencyclidine Ql (U) Negative Negative [facility] Platelet mean volume Auto (B ld) [Entitic vol]Ordered By: Robert Jacobson on 10-29-2022 Platelet mean volume (Bld) [Entitic vol] 7.0 fL 6.3-10.7 [facility] Platelets Auto (Bld) [#/Vol] Ordered By: Robert Jacobson on 10-29-2022 Platelets (Bld) [#/Vol] 289 10*3/uL 150-450 [facility] Potassium [Moles/volume] in Serum or PlasmaOrdered By: Robert Jacobson 10-29-2022 Potassium [Moles/Vol] 3.6 mmol/L 3.5-5.1 [facility] Protein Auto test strip (U) [Mass/Vol]Ordered By: Robert Jacobson on 10-29-2022 Protein (U) [Mass/Vol] Trace mg/dL Negative [facility] Protein [Mass/volume] in Ser um or PlasmaOrdered By: Robert Jacobson on 10-29-2022 Protein [Mass/Vol] 7.1 g/dL 6.4-8.9 [facility] RBC Auto (Bld) [#/Vol]Ordere d By: Robert Jacobson on 10-29-2022 RBC (Bld) [#/Vol] 4.18 10*6/uL 3.60-5.00 [facility] Serum or plasma albumin/glob ulin mass ratioOrdered By: Robert Jacobson on 10-29-2022 Albumin/Globulin [Mass ratio] 1.7 {ratio} [facility] Serum or plasma anion gap de terminationOrdered By: Robert Jacobson on 10-29-2022 Anion gap [Moles/Vol] 11.6 mmol/L 6.0-15.0 [facility] Serum or plasma non-glucuron idated bilirubin measurement (mass/volume)Ordered By: Robert Jacobson on 10-29-2022 Bilirubin.indirect [Mass/Vol] 0.2 mg/dL [facility] Sodium [Moles/volume] in Ser um or PlasmaOrdered By: Robert Jacobson on 10-29-2022 Sodium [Moles/Vol] 137 mmol/L 136-145 [facility] Specific gravity Auto test s trip (U) [Rel density]Ordered By: Robert Jacobson on 10-29-2022 Specific gravity (U) [Rel density] 1.024 1.001-1.030 [facility] Squamous epithelial cells de tection in urine sediment by light microscopyOrdered By: Robert Jacobson on 10-29-2022 Epithelial cells.squamous LM Ql (Urine sed) 5-9 [HPF] 0-2 [facility] Troponin I High Sensitivityo n 10-29-2022 Troponin I High Sensitivity < 2.3 Normal 0.0-15.0 [facility] Comment on above: Result Comment: PERF ORMED BY: [place] [address] PATHOLOGIST HOTEL DESK CLERK АННА AJ M.D. Performed By: #### C UU, TREY [facility] #### [facility] [address] Troponin I.cardiac [Mass/vol ume] in Serum or Plasma by Detection limit <= 0.01 ng/Ordered By: Robert Jacobson on 10-29-2022 Troponin I.cardiac DL <= 0.01 ng/mL [Mass/Vol] < 2.3 pg/mL 0.0-15.0 [facility] US gall bladderon 10-29-2022 US gall bladder [facility] [address] [place] [address] Ultrasound Report Signed Patient: Sea Wright MR#: [id number] 6 : 1995 Acct:[id number] Age/Sex: 27 / F ADM Date: 10/29/22 Loc: ER Room: Type: [facility] ER Attending Dr: Ordering Provider: Robert Jacobson PA-C Date of Service: 10/29/22 US/US gall bladder: Right upper pain Copies to: Robert Jacobson PA-C LIMITED ABDOMINAL ULTRASOUND WITH ASSESSMENT OF RIGHT UPPER QUADRANT HISTORY: Right lower quadrant pain. Nausea and vomiting. COMPARISON:None Negative ultrasound Sousa's sign reported. Common duct measures 3mm. Normal echogenicity of the liver parenchyma identified. No hepatic mass identified. No intrahepatic biliary ductal dilatation identified. No gallstones or gallbladder sludge identified. No gallbladder wall thickening is seen. No pericholecystic fluid is identified. No pancreatic mass, ductal dilatation or peripancreatic abnormalities seen. Normal blood flow of the main portal vein is identified. Liver length is 14 cm. No RIGHT hydronephrosis identified. Right renal cyst measures up to 15 mm. US/US gall bladder IMPRESSION: NORMAL ULTRASOUND OF THE PANCREAS, LIVER AND THE GALLBLADDER. Impression dictated by: Tony Alejandra M.D.10/29/2022 8:11 PM Dictation Location: [place] [address] Tech: Aida Painter Transcribed By: [facility] 10/29/222010 Dictated By: Tony Alejandra DO 10/29/222009 Signed By: 10/29/222010 [facility] Urea nitrogen [Mass/volume] in Serum or PlasmaOrdered By: Robert Jacobson on 10-29-2022 Urea nitrogen [Mass/Vol] 12 mg/dL 7 [facility] [facility] [place] Urine Cultureon 10-29-2022 Bacteria identified Cx Nom (U) 75,000 colonies/ml mixed bacterial skin contaminants 2 Days PERFORMED BY: [place] [address] PATHOLOGIST HOTEL DESK CLERK АННА AJ M.D. [facility] Comment on above: Performed By: #### C TREY KUHN [facility] [place] #### [address] Urine bacteria detection by automated methodOrdered By: Robert Jacobson on 10-29-2022 Bacteria Auto Ql (U) None seen None Seen [facility] Urine clarity by refractomet ry automatedOrdered By: Robert Jacobson on 10-29-2022 Clarity Refractometry automated (U) Cloudy Clear [facility] [place] Urine glucose measurement by automated test strip (mass/volume)Ordered By: Robert Jacobson on 10-29-2022 Glucose Auto test strip (U) [Mass/Vol] Normal mg/dL Normal [facility] [place] Urine hemoglobin detection b y automated test stripOrdered By: Robert Jacobson on 10-29-2022 Hemoglobin Auto test strip Ql (U) Negative Negative [facility] [place] Urine leukocyte esterase det ection by automated test stripOrdered By: Robert Jacobson on 10-29-2022 Leukocyte esterase Auto test strip Ql (U) 3+ Negative [facility] [place] Urobilinogen Auto test strip (U) [Mass/Vol]Ordered By: Robert Jacobson on 10-29-2022 Urobilinogen (U) [Mass/Vol] Normal mg/dL Normal [facility] [place] WBC Auto (Bld) [#/Vol]Ordere d By: Robert Jacobson on 10-29-2022 WBC (Bld) [#/Vol] 6.7 10*3/uL 3.8-11.6 [facility] pH Auto test strip (U)Ordere d By: Robert Jacobson on 10-29-2022 pH (U) 6.0 [pH] 5.0-9.0 [facility] [place] CULTURE URINEon 10-24-2022 CULTURE URINE Isolate 1 Escherichia coli 15,000 cfu/mL of ORGANISM 1 Escherichia coli ANTIBIOTIC M.I.C RX STATUS Ampicillin 4 S F Ampicillin/Sulbactam <=2 S F Piperacillin/Tazobactam <=4 S F Cefazolin <=4 S F Ceftazidime <=1 S F Ceftriaxone <=1 S F Ertapenem <=0.5 S F Imipenem <=0.25 S F Amikacin <=2 S F Gentamicin <=1 S F Tobramycin <=1 S F Ciprofloxacin <=0.25 S F Levofloxacin <=0.12 S F Nitrofurantoin <=16 S F Trimethoprim/Sulfamethoxazo le <=20 S F Normal [facility] Comment on above: Performed By: #### G LARON #### [facility] [address] ABD/PELV W CONon 10-24-19 CT ABD/PELV W CON EXAMINATION: CT ABDO MEN AND PELVIS WITH IV CONTRAST CLINICAL HISTORY: Concern for acute appendicitis TECHNIQUE: CT of the abdomen and pelvis was performed using standard technique, scanning from just above the dome of the diaphragm to the symphysis pubis. All CT scans at this facility use dose modulation, iterative reconstruction, and/or weight based dosing when appropriate to reduce radiation dose to as low as reasonably achievable. Contrast: IV: 100 ml of Omnipaque 350 COMPARISON: CT abdomen and pelvis 10/22/2022 RESULT: Liver: No mass. Stable mild periportal edema. Biliary: No bile duct dilation. High-density material within the gallbladder, compatible with recent contrast administration. Spleen: No mass. No splenomegaly. Pancreas: No mass or duct dilation. Adrenals: No mass. Kidneys: No suspicious renal mass or enhancement. 1.3 cm right inferior pole simple cyst. Duplicated left collecting system. 4 mm left inferior pole nonobstructing calculus. No hydronephrosis. GI tract: No dilation or wall thickening. Appendix is unremarkable. Moderate colonic stool. Lymph nodes: No abdominal or pelvic lymphadenopathy. Mesentery/Peritoneum: No ascites or mass. Retroperitoneum: No mass. Vasculature: The celiac axis and SMA are patent. The portal vein and branches, splenic vein, SMV, and hepatic veins are patent. No abdominal aortic aneurysm. Pelvis: 4.1 cm right and 2.2 cm left adnexal cysts. Fluid-filled mildly distended urinary bladder. Bones/Soft Tissues: No significant finding. Lower thorax: Unremarkable. IMPRESSION: 4 mm left inferior pole nonobstructing calculus. No hydronephrosis. Appendix is unremarkable. Bilateral adnexal cysts, the larger measures 4.1 cm on the right. Electronically authenticated by: REBA DELEON Date: 2022-10-22 22:28 Normal [facility] CBC AUTO DIFFon 10-22-2022 BASO # 0.0 103/ul Normal 0.0-0.1 [facility] Comment on above: Performed By: #### C BC #### [facility] [address] [address] [address] Adriana Chawla Basophils/100 WBC (Bld) 0.5 % Normal 0.2-2.0 [facility] Comment on above: Performed By: #### C BC #### [facility] [address] [place] [address] Dr. Adriana Chawla EO # 0.1 103/ul Normal 0.0-0.7 [facility] Comment on above: Performed By: #### C BC #### [facility] [address] [place] [address] Dr. Adriana Chawla Eosinophils/100 WBC (Bld) 1.1 % Normal 0.9-7.0 [facility] Comment on above: Performed By: #### C BC #### [facility] [address] [place] [address] Dr. Adriana Chawla Erythrocyte distribution width (RBC) [Ratio] 14.0 % Normal 11.0-15.0 [facility] Comment on above: Performed By: #### C BC #### [facility] [address] [place] [address] Dr. Adriana Chawla Hematocrit (Bld) [Volume fraction] 36.4 % Normal 36.0-48.0 [facility] Comment on above: Performed By: #### C BC #### [facility] [address] [place] [address] Dr. Adriana Chawla Hemoglobin (Bld) [Mass/Vol] 12.0 g/dL Normal 12.0-16.0 [facility] Comment on above: Performed By: #### C BC #### [facility] [address] [place] [address] Dr. Adriana Chawla IG # 0.01 10e3/ul Normal 0.00-0.03 [facility] Comment on above: Performed By: #### C BC #### [facility] [address] [place] [address] Dr. Adriana Chawla IG % 0.2 % Normal 0.0-0.5 [facility] Comment on above: Performed By: #### C BC #### [facility] [address] [place] [address] Dr. Adriana Chawla LYMPH # 1.7 103/ul Normal 1.2-3.8 [facility] Comment on above: Performed By: #### C BC #### [facility] [address] [place] [address] Dr. Adriana Chawla Lymphocytes/100 WBC (Bld) 25.3 % Normal 20.5-60.0 [facility] Comment on above: Performed By: #### C BC #### [facility] [address] [place] [address] Dr. Adriana Chawla MANUAL DIFF REQ NO Normal [facility] Comment on above: Performed By: #### C BC #### [facility] [address] [place] [address] Dr. Adriana Chawla MCH (RBC) [Entitic mass] 28.0 pg Normal 26.7-34.0 [facility] Comment on above: Performed By: #### C BC #### [facility] [address] [place] [address] Dr. Adriana Chawla MCHC (RBC) [Mass/Vol] 33.0 g/dL Normal 29.9-35.2 [facility] Comment on above: Performed By: #### C BC #### [facility] [address] [place] [address] Dr. Adriana Chawla MCV (RBC) [Entitic vol] 84.8 fL Normal 81.0-99.0 [facility] Comment on above: Performed By: #### C BC #### [facility] [address] [place] [address] Dr. Adriana Chawla MONO # 0.6 103/ul Normal 0.3-0.8 [facility] Comment on above: Performed By: #### C BC #### [facility] [address] [place] [address] Dr. Adriana Chawla Monocytes/100 WBC (Bld) 8.8 % Normal 1.7-12.0 [facility] Comment on above: Performed By: #### C BC #### [facility] [address] [place] [address] Dr. Adriana Chawla NEUT # 4.2 103/ul Normal 1.4-6.5 [facility] Comment on above: Performed By: #### C BC #### [facility] [address] [place] [address] Dr. Adriana Chawla Neutrophils/100 WBC (Bld) 64.1 % Normal 43.0-75.0 [facility] Comment on above: Performed By: #### C BC #### [facility] [address] [place] [address] Dr. Adriana Chawla Platelet mean volume (Bld) [Entitic vol] 8.7 fL Critically low 9.5-13.5 [facility] Comment on above: Performed By: #### C BC #### [facility] [address] [place] [address] Dr. Adriana Chawla PLT 277 103/ul Normal 150-450 [facility] Comment on above: Performed By: #### C BC #### [facility] [address] [place] [address] Dr. Adriana Chawla RBC 4.29 106/ul Normal 4.20-5.40 [facility] Comment on above: Performed By: #### C BC #### [facility] [address] [place] [address] Dr. Adriana Chawla WBC 6.6 103/ul Normal 4.0-11.0 [facility] Comment on above: Performed By: #### C BC #### [facility] [address] [place] [address] Dr. Adriana Chawla BASO # 0.0 103/ul Normal 0.0-0.1 [facility] Comment on above: Performed By: #### V AGINT #### [facility] [address] [place] [address] Dr. Adriana Chawla Basophils/100 WBC (Bld) 0.5 % Normal 0.2-2.0 [facility] Comment on above: Performed By: #### V AGINT #### [facility] [address] [place] [address] Dr. Adriana Chawla EO # 0.1 103/ul Normal 0.0-0.7 [facility] Comment on above: Performed By: #### V AGINT #### [facility] [address] [place] [address] Dr. Adriana Chawla Eosinophils/100 WBC (Bld) 1.4 % Normal 0.9-7.0 [facility] Comment on above: Performed By: #### V AGINT #### [facility] [address] [place] [address] Dr. Adriana Chawla Erythrocyte distribution width (RBC) [Ratio] 13.9 % Normal 11.0-15.0 [facility] Comment on above: Performed By: #### V AGINT #### [facility] [address] [place] [address] Dr. Adriana Chawla Hematocrit (Bld) [Volume fraction] 37.1 % Normal 36.0-48.0 [facility] Comment on above: Performed By: #### V AGINT #### [facility] [address] [place] [address] Dr. Adriana Chawla Hemoglobin (Bld) [Mass/Vol] 12.2 g/dL Normal 12.0-16.0 [facility] Comment on above: Performed By: #### V AGINT #### [facility] [address] [place] [address] Dr. Adriana Chawla IG # 0.02 10e3/ul Normal 0.00-0.03 [facility] Comment on above: Performed By: #### V AGINT #### [facility] [address] [place] [address] Dr. Adriana Chawla IG % 0.3 % Normal 0.0-0.5 [facility] Comment on above: Performed By: #### V AGINT #### [facility] [address] [place] [address] Dr. Adriana Chawla LYMPH # 2.6 103/ul Normal 1.2-3.8 [facility] Comment on above: Performed By: #### V AGINT #### [facility] [address] [place] [address] Dr. Adriana Chawla Lymphocytes/100 WBC (Bld) 33.9 % Normal 20.5-60.0 [facility] Comment on above: Performed By: #### V AGINT #### [facility] [address] [place] [address] Dr. Adriana Chawla MANUAL DIFF REQ NO Normal [facility] Comment on above: Performed By: #### V AGINT #### [facility] [address] [place] [address] Dr. Adriana Chawla MCH (RBC) [Entitic mass] 27.9 pg Normal 26.7-34.0 [facility] Comment on above: Performed By: #### V AGINT #### [facility] [address] [place] [address] Dr. Adriana Chawla MCHC (RBC) [Mass/Vol] 32.9 g/dL Normal 29.9-35.2 [facility] Comment on above: Performed By: #### V AGINT #### [facility] [address] [place] [address] Dr. Adriana Chawla MCV (RBC) [Entitic vol] 84.9 fL Normal 81.0-99.0 [facility] Comment on above: Performed By: #### V AGINT #### [facility] [address] [place] [address] Dr. Adriana Chawla MONO # 0.7 103/ul Normal 0.3-0.8 [facility] Comment on above: Performed By: #### V AGINT #### [facility] [address] [place] [address] Dr. Adriana Chawla Monocytes/100 WBC (Bld) 8.9 % Normal 1.7-12.0 [facility] Comment on above: Performed By: #### V AGINT #### [facility] [address] [place] [address] Dr. Adriana Chawla NEUT # 4.3 103/ul Normal 1.4-6.5 [facility] Comment on above: Performed By: #### V AGINT #### [facility] [address] [address] [address] Adriana Chawla Neutrophils/100 WBC (Bld) 55.0 % Normal 43.0-75.0 [facility] Comment on above: Performed By: #### V AGINT #### [facility] [address] [address] [address] Adriana Chawla Platelet mean volume (Bld) [Entitic vol] 9.1 fL Critically low 9.5-13.5 [facility] Comment on above: Performed By: #### V AGINT #### [facility] [address] [address] [address] Adriana Chawla PLT 310 103/ul Normal 150-450 [facility] Comment on above: Performed By: #### V AGINT #### [facility] [address] [place] [address] Dr. Adriana Chawla RBC 4.37 106/ul Normal 4.20-5.40 [facility] Comment on above: Performed By: #### V AGINT #### [facility] [address] [address] [address] Adriana Chawla WBC 7.7 103/ul Normal 4.0-11.0 [facility] Comment on above: Performed By: #### V AGINT #### [facility] [address] [place] [address] ABD/PELV W CONon 10-23-[address] ABD/PELV W CON EXAMINATION: CT ABD/ PELV W CON HISTORY: Sharp right-sided abdominal pain beginning yesterday COMPARISON: Pelvic ultrasound 08/05/2022 TECHNIQUE: Axial postcontrast CT imaging of the abdomen and pelvis was performed with coronal and sagittal reformats. Dose reduction techniques were achieved by using automated exposure control and/or adjustment of mA and/or kV according to patient size and/or use of iterative reconstruction technique. FINDINGS: LOWER CHEST: Mediastinum/alma: Within normal limits. Heart/vessels: Heart size within normal limits. No pericardial effusion. Pleura: No pleural effusions. Lungs: Within normal limits. ABDOMEN/PELVIS: Liver: Mild periportal edema likely relating to patient's hydration status. Gallbladder/biliary: Decompressed. Spleen: Within normal limits. Pancreas: Within normal limits. Adrenals: Within normal limits. 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 There is nonobstructing nephrolithiasis involving the inferior moiety/kidney. Bilateral renal cysts are present. No radiopaque calculi or hydronephrosis. Peritoneum: Within normal limits. Mesentery: Within normal limits. Extraperitoneum: Within normal limits. Gastrointestinal tract: The appendix is not definitely seen although there is no definite secondary CT evidence to suggest acute appendicitis. Ureters: Within normal limits. Bladder: Within normal limits. Reproductive System: Follicular changes are noted bilaterally with dominant follicles noted on the right. Vascular: Within normal limits. MSK: No acute osseous or soft tissue findings. IMPRESSION: 1. Suboptimal evaluation of the right lower quadrant structures secondary to relative paucity of intra-abdominal fat. The appendix is not definitely visualized although there is no specific secondary CT evidence to suggest acute appendicitis. 2. Prominent mixed follicular changes involving the right adnexa with dominant follicles noted. 3. 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 A nonobstructing renal stone is present involving the inferior moiety on the left. 4. Bilateral renal cysts. Electronically authenticated by: RUPA WEIR Date: 2022-10-22 02:57 Normal [facility]on SARS-CoV-2 (COVID-19) RNA OLIMPIA+probe Ql (Unsp spec) Not detected Normal NOT DETECTED [facility] Comment on above: Result Comment: When diagnostic testing is negative, the possibility of a false negative should be considered in the context of a patient's recent exposures and the presence of clinical signs and symptoms consistent with SARS-CoV-2. This test is not yet approved or cleared by the [place] FDA. When there are no FDA-approved or cleared tests available, and other criteria are met, FDA can make tests available under an emergency access mechanism called an Emergency Use Authorization (EUA). The EUA for this test is supported by the [place] of Health and Human Service's declaration that circumstances exist to justify the emergency use of in vitro diagnostics for the detection and/or diagnosis of the virus that causes COVID-19. This EUA will remain in effect for the duration of the COVID-19 declaration justifying emergency of IVDs, unless it is terminated or revoked by the FDA (after which the test may no longer be used). Performed By: #### C VDTB #### [facility] [address] [place] [address] Dr. Adriana Chawla ER URINE PROFILEon 3 Bilirubin Ql (U) Negative Normal NEGATIVE [facility] Comment on above: Performed By: #### E RUR, UMICRO #### [facility] [address] [place] [address] Dr. Adriana Chawla Clarity (U) CLEAR Normal CLEAR [facility] Comment on above: Performed By: #### E RUR, UMICRO #### [facility] [address] [place] [address] Dr. Adriana Chawla Color (U) YELLOW Normal YELLOW [facility] Comment on above: Performed By: #### E RUR, UMICRO #### [facility] [address] [place] [address] Dr. Adriana MAZARIEGOS A micrscopic examina tion will be performed if indicated. Normal [facility] Comment on above: Performed By: #### E RUR, UMICRO #### [facility] [address] [place] [address] Dr. Adriana Chawla Glucose Ql (U) Negative Normal NEGATIVE [facility] Comment on above: Performed By: #### E RUR, UMICRO #### [facility] [address] [place] [address] Dr. Adriana Chawla Hemoglobin Ql (U) MODERATE Abnormal NEGATIVE [facility] Comment on above: Performed By: #### E RUR, UMICRO #### [facility] [address] [place] [address] Dr. Adriana Chawla Ketones Ql (U) TRACE Abnormal NEGATIVE [facility] Comment on above: Performed By: #### E RUR, UMICRO #### [facility] [address] [place] [address] Dr. Adriana Chawla LEUKOCYTES TRACE Abnormal NEGATIVE [facility] Comment on above: Performed By: #### TOYA CARVAJALRO #### [facility] [address] [place] [address] Dr. Adriana Chawla Nitrite Ql (U) Negative Normal NEGATIVE [facility] Comment on above: Performed By: #### TOYA CARVAJALRO #### [facility] [address] [place] [address] Dr. Adriana Chawla pH (U) 6.0 [pH] Normal 5-9 [facility] Comment on above: Performed By: #### TOYA CARVAJALRO #### [facility] [address] [place] [address] Dr. Adriana Chawla SPEC GRAVITY 1.020 Normal 1.005-<=1.0 25 [facility] Comment on above: Performed By: #### TOYA CARVAJALRO #### [facility] [address] [place] [address] Dr. Adriana Chawla UA PROTEIN Negative Normal NEGATIVE/ TRACE [facility] Comment on above: Performed By: #### TOYA CARVAJALRO #### [facility] [address] [place] [address] Dr. Adriana Chawla UR MICRO IND INDICATED Normal [facility] Comment on above: Performed By: #### TOYA CARVAJALRO #### [facility] [address] [place] [address] Dr. Adriana Chawla Urobilinogen Qn (U) 0.2 {Sushila'U}/dL Normal 0.2 - 1. 0 [facility] Comment on above: Performed By: #### TOYA CARVAJALRO #### [facility] [address] [place] [address] Dr. Adriana Chawla Bilirubin Ql (U) Negative Normal NEGATIVE [facility] Comment on above: Performed By: #### U MICRO, ERUR #### [facility] [address] [place] [address] Dr. Adriana Chawla Clarity (U) CLEAR Normal CLEAR [facility] Comment on above: Performed By: #### U MICRO, ERUR #### [facility] [address] [address] [address] Adriana Chawla Color (U) LT. YELLOW Normal YELLOW [facility] Comment on above: Performed By: #### U MICRO, ERUR #### [facility] [address] [address] [address] Adriana Chawla ERUAHD A micrscopic examina tion will be performed if indicated. Normal [facility] Comment on above: Performed By: #### U MICRO, ERUR #### [facility] [address] [place] [address] Dr. Adriana Chawla Glucose Ql (U) Negative Normal NEGATIVE [facility] Comment on above: Performed By: #### U MICRO, ERUR #### [facility] [address] [place] [address] Dr. Adriana Chawla Hemoglobin Ql (U) LARGE Abnormal NEGATIVE [facility] Comment on above: Performed By: #### U MICRO, ERUR #### [facility] [address] [place] [address] Dr. Adriana Chawla Ketones Ql (U) Negative Normal NEGATIVE [facility] Comment on above: Performed By: #### U MICRO, ERUR #### [facility] [address] [place] [address] Dr. Adriana Chawla LEUKOCYTES SMALL Abnormal NEGATIVE [facility] Comment on above: Performed By: #### U MICRO, ERUR #### [facility] [address] [address] [address] Adriana Chawla Nitrite Ql (U) Negative Normal NEGATIVE [facility] Comment on above: Performed By: #### U MICRO, ERUR #### [facility] [address] [place] [address] Dr. Adriana Chawla pH (U) 7.0 [pH] Normal 5-9 [facility] Comment on above: Performed By: #### U MICRO, ERUR #### [facility] [address] [place] [address] Dr. Adriana Chawla SPEC GRAVITY 1.010 Normal 1.005-<=1.0 25 [facility] Comment on above: Performed By: #### U MICRO, ERUR #### [facility] [address] [place] [address] Dr. Adriana Chawla UA PROTEIN Negative Normal NEGATIVE/ TRACE [facility] Comment on above: Performed By: #### U MICRO, ERUR #### [facility] [address] [place] [address] Dr. Adriana Chawla UR MICRO IND INDICATED Normal [facility] Comment on above: Performed By: #### U MICRO, ERUR #### [facility] [address] [place] [address] Dr. Adriana Chawla Urobilinogen Qn (U) 0.2 {Sushila'U}/dL Normal 0.2 - 1. 0 [facility] Comment on above: Performed By: #### U MICRO, ERUR #### [facility] [address] [place] [address] Dr. Adriana Chawla LACTATE/LACTIC ACIDon 2022 Lactate [Moles/Vol] 0.9 mmol/L Normal 0.4-2.0 [facility] Comment on above: Performed By: #### V AGINT #### [facility] [address] [place] [address] Dr. Adriana Chawla PREG HCG QUALon 10-22-2022 , QUAL Negative Normal NEGATIVE [facility] Comment on above: Performed By: #### P REG #### [facility] [address] [place] [address] Dr. Adriana Chawla PROF 14(COMP METB)on 023 Albumin [Mass/Vol] 3.9 g/dL Normal 3.4-5.0 [facility] Comment on above: Performed By: #### V AGINT #### [facility] [address] [place] [address] Dr. Adriana Chawla Albumin/Globulin [Mass ratio] 1.3 {ratio} Normal [facility] Comment on above: Performed By: #### V AGINT #### [facility] [address] [place] [address] Dr. Adriana Chawla ALP [Catalytic activity/Vol] 46 U/L Normal 46-116 [facility] Comment on above: Performed By: #### V AGINT #### [facility] [address] [place] [address] Dr. Adriana Chawla ALT [Catalytic activity/Vol] 18 U/L Normal 14-59 [facility] Comment on above: Performed By: #### V AGINT #### [facility] [address] [place] [address] Dr. Adriana Chawla Anion gap [Moles/Vol] 9.1 mmol/L Normal [facility] Comment on above: Performed By: #### V AGINT #### [facility] [address] [place] [address] Dr. Adriana Chawla AST [Catalytic activity/Vol] 22 U/L Normal 15-37 [facility] Comment on above: Performed By: #### V AGINT #### [facility] [address] [place] [address] Dr. Adriana Chawla Bilirubin [Mass/Vol] 0.3 mg/dL Normal 0.2-1.0 [facility] Comment on above: Performed By: #### V AGINT #### [facility] [address] [place] [address] Dr. Adriana Chawla Calcium [Mass/Vol] 8.6 mg/dL Normal 8.5-10.1 [facility] Comment on above: Performed By: #### V AGINT #### [facility] [address] [place] [address] Dr. Adriana Chawla Chloride [Moles/Vol] 106 mmol/L Normal 98-107 [facility] Comment on above: Performed By: #### V AGINT #### [facility] [address] [place] [address] Dr. Adriana Chawla CO2 [Moles/Vol] 25.4 mmol/L Normal 21.0-32.0 [facility] Comment on above: Performed By: #### V AGINT #### [facility] [address] [place] [address] Dr. Adriana Chawla Creatinine [Mass/Vol] 0.67 mg/dL Normal 0.55-1.02 [facility] Comment on above: Performed By: #### V AGINT #### [facility] [address] [address] [address] Adriana Chawla EGFR-AF EMIRATI >60 Normal >=60 [facility] Comment on above: Performed By: #### V AGINT #### [facility] [address] [address] [address] Adriana Chawla EGFR-NON AF EMIRATI >60 Normal >=60 [facility] Comment on above: Performed By: #### V AGINT #### [facility] [address] [address] [address] Adriana Chawla Globulin (S) [Mass/Vol] 3.0 g/dL Normal [facility] Comment on above: Performed By: #### V AGINT #### [facility] [address] [place] [address] Dr. Adriana Chawla Glucose [Mass/Vol] 96 mg/dL Normal 74-106 [facility] Comment on above: Performed By: #### V AGINT #### [facility] [address] [place] [address] Dr. Adriana Chawla Potassium [Moles/Vol] 3.5 mmol/L Normal 3.5-5.1 [facility] Comment on above: Performed By: #### V AGINT #### [facility] [address] [place] [address] Dr. Adriana Chawla Protein [Mass/Vol] 6.9 g/dL Normal 6.4-8.2 [facility] Comment on above: Performed By: #### V AGINT #### [facility] [address] [address] [address] Adriana Chawla Sodium [Moles/Vol] 137 mmol/L Normal 136-145 [facility] Comment on above: Performed By: #### V AGINT #### [facility] [address] [place] [address] Dr. Adriana Chawla Urea nitrogen [Mass/Vol] 13.0 mg/dL Normal 7.0-18.0 [facility] Comment on above: Performed By: #### V AGINT #### [facility] [address] [address] [address] Adrinaa Chawla Urea nitrogen/Creatinine [Mass ratio] 19.4 mg/mg Normal [facility] Comment on above: Performed By: #### V AGINT #### [facility] [address] [address] [address] Adriana Chawla Albumin [Mass/Vol] 4.2 g/dL Normal 3.4-5.0 [facility] Comment on above: Performed By: #### G IPANEL #### [facility] [address] [address] [address] Adriana Chawla Albumin/Globulin [Mass ratio] 1.3 {ratio} Normal [facility] Comment on above: Performed By: #### G IPANEL #### [facility] [address] [place] [address] Dr. Adriana Chawla ALP [Catalytic activity/Vol] 59 U/L Normal 46-116 [facility] Comment on above: Performed By: #### G IPANEL #### [facility] [address] [place] [address] Dr. Adriana Chawla ALT [Catalytic activity/Vol] 18 U/L Normal 14-59 [facility] Comment on above: Performed By: #### G IPANEL #### [facility] [address] [place] [address] Dr. Adriana Chawla Anion gap [Moles/Vol] 8.8 mmol/L Normal [facility] Comment on above: Performed By: #### G IPANEL #### [facility] [address] [address] [address] Adriana Chawla AST [Catalytic activity/Vol] 17 U/L Normal 15-37 [facility] Comment on above: Performed By: #### G IPANEL #### [facility] [address] [place] [address] Dr. Adriana Chawla Bilirubin [Mass/Vol] 0.2 mg/dL Normal 0.2-1.0 [facility] Comment on above: Performed By: #### G IPANEL #### [facility] [address] [address] [address] Adriana Chawla Calcium [Mass/Vol] 8.8 mg/dL Normal 8.5-10.1 [facility] Comment on above: Performed By: #### G IPANEL #### [facility] [address] [address] [address] Adriana Chawal Chloride [Moles/Vol] 103 mmol/L Normal 98-107 [facility] Comment on above: Performed By: #### G IPANEL #### [facility] [address] [address] [address] Adriana Chawla CO2 [Moles/Vol] 27.6 mmol/L Normal 21.0-32.0 [facility] Comment on above: Performed By: #### G IPANEL #### [facility] [address] [place] [address] Dr. Adriana Chawla Creatinine [Mass/Vol] 0.62 mg/dL Normal 0.55-1.02 [facility] Comment on above: Performed By: #### G IPANEL #### [facility] [address] [place] [address] Dr. Adriana Chawla EGFR-AF EMIRATI >60 Normal >=60 [facility] Comment on above: Performed By: #### G IPANEL #### [facility] [address] [place] [address] Dr. Adriana Chawla EGFR-NON AF EMIRATI >60 Normal >=60 [facility] Comment on above: Performed By: #### G IPANEL #### [facility] [address] [place] [address] Dr. Adriana Chawla Globulin (S) [Mass/Vol] 3.2 g/dL Normal [facility] Comment on above: Performed By: #### G IPANEL #### [facility] [address] [place] [address] Dr. Adriana Chawla Glucose [Mass/Vol] 103 mg/dL Normal 74-106 [facility] Comment on above: Performed By: #### G IPANEL #### [facility] [address] [place] [address] Dr. Adriana Chawla Potassium [Moles/Vol] 3.4 mmol/L Critically low 3.5-5.1 [facility] Comment on above: Performed By: #### G IPANEL #### [facility] [address] [address] [address] Adriana Chawla Protein [Mass/Vol] 7.4 g/dL Normal 6.4-8.2 [facility] Comment on above: Performed By: #### G IPANEL #### [facility] [address] [address] [address] Adriana Chawla Sodium [Moles/Vol] 136 mmol/L Normal 136-145 [facility] Comment on above: Performed By: #### G IPANEL #### [facility] [address] [place] [address] Dr. Adriana Chawla Urea nitrogen [Mass/Vol] 12.0 mg/dL Normal 7.0-18.0 [facility] Comment on above: Performed By: #### G IPANEL #### [facility] [address] [place] [address] Dr. Adriana Chawla Urea nitrogen/Creatinine [Mass ratio] 19.4 mg/mg Normal [facility] Comment on above: Performed By: #### G IPANEL #### [facility] [address] [place] [address] Dr. Adriana Chawla PROTIMEon 10-22-2022 INR Coag (PPP) [Relative time] 0.99 {INR} Normal [facility] Comment on above: Performed By: #### G IPANEL #### [facility] [address] [place] [address] Dr. Adriana Chawla INR GUIDELINES SEE BELOW Normal [facility] Comment on above: Result Comment: REGGIE RED INR: 2.0 - 3.0 CONDITIONS NOT LISTED BELOW 2.5 - 3.5 FOR PROSTHETIC HEART VALVE REPLACEMENT 2.5 - 3.5 RECURRENT THROMBOSIS Performed By: #### G IPANEL #### [facility] [address] [place] [address] Dr. Adriana Chawla PT Coag (PPP) [Time] 10.5 s Normal 9.0-11.6 [facility] Comment on above: Performed By: #### G IPANEL #### [facility] [address] [place] [address] Dr. Adriana Chawla PTTon 10-22-2022 aPTT Coag (Bld) [Time] 27.9 s Normal 22.3-36.2 [facility] Comment on above: Performed By: #### G IPANEL #### [facility] [address] [place] [address] Dr. Adriana Chawla URINE MICROSCOPIC ONLYon BACTERIA MODERATE Abnormal NONE SEEN [facility] Comment on above: Performed By: #### E RUR UMICRO #### [facility] [address] [place] [address] Dr. Adriana Chawla Bacteria identified Cx Nom (U) INDICATED Normal [facility] Comment on above: Performed By: #### E RUR, UMICRO #### [facility] [address] [place] [address] Dr. Adriana Chawla CAST NONE SEEN Normal NONE SEEN [facility] Comment on above: Performed By: #### E RUR, UMICRO #### [facility] [address] [place] [address] Dr. Adriana Chawla Crystals LM Nom (Urine sed) NONE SEEN Normal NONE SEEN [facility] Comment on above: Performed By: #### E RUR, UMICRO #### [facility] [address] [place] [address] Dr. Adriana Chawla Epithelial cells LM Ql (Urine sed) MODERATE Abnormal NONE SEEN /RARE [facility] Comment on above: Performed By: #### E RUR, UMICRO #### [facility] [address] [place] [address] Dr. Adriana Chawla MUCOUS LARGE Abnormal NONE SEEN [facility] Comment on above: Performed By: #### E RUR, UMICRO #### [facility] [address] [place] [address] Dr. Adriana Chawla RBC 2-5 Abnormal 0-2 [facility] Comment on above: Performed By: #### E RUR, UMICRO #### [facility] [address] [address] [address] Adriana Chawla WBC 10-20 Abnormal NONE SEEN [facility] Comment on above: Performed By: #### E RUR UMICRO #### [facility] [address] [place] [address] Dr. Adriana Chawla BACTERIA TRACE Abnormal NONE SEEN [facility] Comment on above: Performed By: #### U MICRO, ERUR #### [facility] [address] [address] [address] Adriana Chawla Bacteria identified Cx Nom (U) INDICATED Normal [facility] Comment on above: Performed By: #### U MICRO, ERUR #### [facility] [address] [place] [address] Dr. Adriana Chawla CAST NONE SEEN Normal NONE SEEN [facility] Comment on above: Performed By: #### U MICRO, ERUR #### [facility] [address] [place] [address] Dr. Adriana Chawla Crystals LM Nom (Urine sed) NONE SEEN Normal NONE SEEN [facility] Comment on above: Performed By: #### U MICRO, ERUR #### [facility] [address] [place] [address] Dr. Adriana Chawla Epithelial cells LM Ql (Urine sed) FEW Abnormal NONE SEEN /RARE [facility] Comment on above: Performed By: #### U MICRO, ERUR #### [facility] [address] [place] [address] Dr. Adriana Chawla MUCOUS NONE SEEN Normal NONE SEEN [facility] Comment on above: Performed By: #### U MICRO, ERUR #### [facility] [address] [place] [address] Dr. Adriana Chawla RBC 2-5 Abnormal 0-2 [facility] Comment on above: Performed By: #### U MICRO, ERUR #### [facility] [address] [place] [address] Dr. Adriana Chawla WBC 2-5 Abnormal NONE SEEN [facility] Comment on above: Performed By: #### U MICRO, ERUR #### [facility] [address] [place] [address] Dr. Adriana hCawla CBC AUTO DIFFon 08-13-2022 BASO # 0.0 103/ul Normal 0.0-0.1 [facility] Comment on above: Performed By: #### C BC #### [facility] [address] [place] [address] Dr. Adriana Chawla Basophils/100 WBC (Bld) 0.1 % Critically low 0.2-2.0 [facility] Comment on above: Performed By: #### C BC #### [facility] [address] [place] [address] Dr. Adriana Chawla EO # 0.0 103/ul Normal 0.0-0.7 [facility] Comment on above: Performed By: #### C BC #### [facility] [address] [place] [address] Dr. Adriana Chawla Eosinophils/100 WBC (Bld) 0.3 % Critically low 0.9-7.0 [facility] Comment on above: Performed By: #### C BC #### [facility] [address] [place] [address] Dr. Adriana Chawla Erythrocyte distribution width (RBC) [Ratio] 12.8 % Normal 11.0-15.0 [facility] Comment on above: Performed By: #### C BC #### [facility] [address] [place] [address] Dr. Adriana Chawla Hematocrit (Bld) [Volume fraction] 37.9 % Normal 36.0-48.0 [facility] Comment on above: Performed By: #### C BC #### [facility] [address] [place] [address] Dr. Adriana Chawla Hemoglobin (Bld) [Mass/Vol] 12.5 g/dL Normal 12.0-16.0 [facility] Comment on above: Performed By: #### C BC #### [facility] [address] [place] [address] Dr. Adriana Chawla IG # 0.02 10e3/ul Normal 0.00-0.03 [facility] Comment on above: Performed By: #### C BC #### [facility] [address] [place] [address] Dr. Adriana Chawla IG % 0.3 % Normal 0.0-0.5 [facility] Comment on above: Performed By: #### C BC #### [facility] [address] [place] [address] Dr. Adriana Chawla LYMPH # 0.3 103/ul Critically low 1.2-3.8 [facility] Comment on above: Performed By: #### C BC #### [facility] [address] [place] [address] Dr. Adriana Chawla Lymphocytes/100 WBC (Bld) 3.9 % Critically low 20.5-60.0 [facility] Comment on above: Performed By: #### C BC #### [facility] [address] [place] [address] Dr. Adriana Chawla MANUAL DIFF REQ NO Normal [facility] Comment on above: Performed By: #### C BC #### [facility] [address] [place] [address] Dr. Adriana Chawla MCH (RBC) [Entitic mass] 27.8 pg Normal 26.7-34.0 [facility] Comment on above: Performed By: #### C BC #### [facility] [address] [place] [address] Dr. Adriana Chawla MCHC (RBC) [Mass/Vol] 33.0 g/dL Normal 29.9-35.2 [facility] Comment on above: Performed By: #### C BC #### [facility] [address] [place] [address] Dr. Adriana Chawla MCV (RBC) [Entitic vol] 84.2 fL Normal 81.0-99.0 [facility] Comment on above: Performed By: #### C BC #### [facility] [address] [place] [address] Dr. Adriana Chawla MONO # 0.3 103/ul Normal 0.3-0.8 [facility] Comment on above: Performed By: #### C BC #### [facility] [address] [place] [address] Dr. Adriana Chawla Monocytes/100 WBC (Bld) 4.3 % Normal 1.7-12.0 [facility] Comment on above: Performed By: #### C BC #### [facility] [address] [place] [address] Dr. Adriana Chawla NEUT # 6.8 103/ul Critically high 1.4-6.5 [facility] Comment on above: Performed By: #### C BC #### [facility] [address] [place] [address] Dr. Adriana Chawla Neutrophils/100 WBC (Bld) 91.1 % Critically high 43.0-75.0 [facility] Comment on above: Performed By: #### C BC #### [facility] [address] [place] [address] Dr. Adriana Chawla Platelet mean volume (Bld) [Entitic vol] 8.3 fL Critically low 9.5-13.5 [facility] Comment on above: Performed By: #### C BC #### [facility] [address] [place] [address] Dr. Adriana Chawla PLT 229 103/ul Normal 150-450 [facility] Comment on above: Performed By: #### C BC #### [facility] [address] [place] [address] Dr. Adriana Chawla RBC 4.50 106/ul Normal 4.20-5.40 [facility] Comment on above: Performed By: #### C BC #### [facility] [address] [place] [address] Dr. Adriana Chawla WBC 7.5 103/ul Normal 4.0-11.0 [facility] Comment on above: Performed By: #### C BC #### [facility] [address] [place] [address] Dr. Adriana Chawla LIPASEon 08-13-2022 Lipase [Catalytic activity/Vol] 49.0 U/L Critically low 73.0-393.0 [facility] Comment on above: Performed By: #### V AGINT #### [facility] [address] [place] [address] Dr. Adriana Chawla PREG HCG QUALon 08-13-2022 , QUAL Negative Normal NEGATIVE [facility] Comment on above: Performed By: #### V AGINT #### [facility] [address] [place] [address] Dr. Adriana Chawla PROF 14(COMP METB)on 022 Albumin [Mass/Vol] 3.7 g/dL Normal 3.4-5.0 [facility] Comment on above: Performed By: #### V AGINT #### [facility] [address] [place] [address] Dr. Adriana Chawla Albumin/Globulin [Mass ratio] 1.1 {ratio} Normal [facility] Comment on above: Performed By: #### V AGINT #### [facility] [address] [place] [address] Dr. Adriana Chawla ALP [Catalytic activity/Vol] 42 U/L Critically low 46-116 [facility] Comment on above: Performed By: #### V AGINT #### [facility] [address] [place] [address] Dr. Adriana Chawla ALT [Catalytic activity/Vol] 11 U/L Critically low 14-59 [facility] Comment on above: Performed By: #### V AGINT #### [facility] [address] [place] [address] Dr. Adriana Chawla Anion gap [Moles/Vol] 13.8 mmol/L Normal [facility] Comment on above: Performed By: #### V AGINT #### [facility] [address] [place] [address] Dr. Adriana Chawla AST [Catalytic activity/Vol] 15 U/L Normal 15-37 [facility] Comment on above: Performed By: #### V AGINT #### [facility] [address] [place] [address] Dr. Adriana Chawla Bilirubin [Mass/Vol] 0.6 mg/dL Normal 0.2-1.0 [facility] Comment on above: Performed By: #### V AGINT #### [facility] [address] [place] [address] Dr. Adriana Chawla Calcium [Mass/Vol] 8.5 mg/dL Normal 8.5-10.1 [facility] Comment on above: Performed By: #### V AGINT #### [facility] [address] [place] [address] Dr. Adriana Chawla Chloride [Moles/Vol] 104 mmol/L Normal 98-107 [facility] Comment on above: Performed By: #### V AGINT #### [facility] [address] [place] [address] Dr. Adriana Chawla CO2 [Moles/Vol] 24.8 mmol/L Normal 21.0-32.0 [facility] Comment on above: Performed By: #### V AGINT #### [facility] [address] [place] [address] Dr. Adriana Chawla Creatinine [Mass/Vol] 0.57 mg/dL Normal 0.55-1.02 [facility] Comment on above: Performed By: #### V AGINT #### [facility] [address] [place] [address] Dr. Adriana Chawla EGFR-AF EMIRATI >60 Normal >=60 [facility] Comment on above: Performed By: #### V AGINT #### [facility] [address] [place] [address] Dr. Adriana Chawla EGFR-NON AF EMIRATI >60 Normal >=60 [facility] Comment on above: Performed By: #### V AGINT #### [facility] [address] [place] [address] Dr. Adriana Chawla Globulin (S) [Mass/Vol] 3.5 g/dL Normal [facility] Comment on above: Performed By: #### V AGINT #### [facility] [address] [place] [address] Dr. Adriana Chawla Glucose [Mass/Vol] 96 mg/dL Normal 74-106 [facility] Comment on above: Performed By: #### V AGINT #### [facility] [address] [place] [address] Dr. Adriana Chawla Potassium [Moles/Vol] 3.6 mmol/L Normal 3.5-5.1 [facility] Comment on above: Performed By: #### V AGINT #### [facility] [address] [address] [address] Adriana Chawla Protein [Mass/Vol] 7.2 g/dL Normal 6.4-8.2 [facility] Comment on above: Performed By: #### V AGINT #### [facility] [address] [place] [address] Dr. Adriana Chawla Sodium [Moles/Vol] 139 mmol/L Normal 136-145 [facility] Comment on above: Performed By: #### V AGINT #### [facility] [address] [place] [address] Dr. Adriana Chawla Urea nitrogen [Mass/Vol] 15.0 mg/dL Normal 7.0-18.0 [facility] Comment on above: Performed By: #### V AGINT #### [facility] [address] [place] [address] Dr. Adriana Chawla Urea nitrogen/Creatinine [Mass ratio] 26.3 mg/mg Normal [facility] Comment on above: Performed By: #### V AGINT #### [facility] [address] [place] [address] Dr. Adriana Chawla US PELVIS AND TRANSVAGon US PELVIS AND TRANSVAG EXAMINATION: US P VELVET AND TRANSVAG HISTORY: Cyst of ovary ; follow-up right ovarian cyst. COMPARISON: No relevant comparison available. TECHNIQUE: Transabdominal and transvaginal sonographic examination. FINDINGS: UTERUS: Normal size and appearance. Uterus size: 7.2 x 5.1 x 3.0 cm ENDOMETRIUM: Normal homogeneous appearance. Endometrial thickness: 9 mm RIGHT OVARY: Contains a 2.0 cm simple appearing cyst. Duplex Doppler demonstrates normal waveform and flow; resistive index 0.5. Ovary size: 4.9 x 2.4 x 2.0 cm LEFT OVARY: Contains a 3.8 cm simple appearing cyst. Duplex Doppler demonstrates normal waveform and flow; resistive index 0.5. Ovary size: 5.0 x 4.3 x 3.5 cm CUL-DE-SAC: Unremarkable. No significant free fluid. BLADDER: Unremarkable. OTHER: None. IMPRESSION: 1. Prominent but benign-appearing simple cysts within the right and left ovary. No additional follow-up recommended at this time. Electronically authenticated by: CHRISTIAN LARA Date: 2022-08-06 17:45 Normal [facility] COVID CepheidOrdered By: Cesar Birch on 07-28-2022 SARS-CoV-2 (COVID-19) Ab IA Ql Negative Negative [facility] Comment on above: This is a duplicate Cepheid Xpert Xpress CoV-2/Flu/RSV Plus RNA by RT-PCR result to be used for statistical tracking purpose only. SARS-CoV-2 (COVID-19) RNA OLIMPIA+probe Ql (Unsp spec) [facility] COVID-19 / Flu A/B / RSV PCR on 07-28-2022 SARS-CoV-2 (COVID-19) RNA OLIMPIA+probe Ql (Unsp spec) COVID-19 Cepheid Result Negative for SARS-CoV-2 RNA by RT-PCR Flu A Cepheid Result Negative for Flu A RNA by RT-PCR Flu B Cepheid Result Negative for Flu B RNA by RT-PCR RSV Cepheid Result Negative for RSV RNA by RT-PCR COVID19 Blank Space Reference: Negative COVID19 Blank Space Cepheid Disclaimer The Cepheid Xpert Xpress CoV-2/Flu/RSV Plus has Cepheid Disclaimer not been FDA cleared or approved; this test has Cepheid Disclaimer been authorized by FDA under an EUA for use by Cepheid Disclaimer authorized laboratories; this test has been Cepheid Disclaimer authorized only for the simultaneous qualitative Cepheid Disclaimer detection and differentiation of nucleic acids from Cepheid Disclaimer SARS-CoV-2, influenza A, influenza B, and Cepheid Disclaimer respiratory syncytial virus (RSV), and not for any Cepheid Disclaimer other viruses or pathogens; and this test is only Cepheid Disclaimer authorized for the duration of the declaration that Cepheid Disclaimer circumstances exist justifying the authorization of Cepheid Disclaimer emergency use of in vitro diagnostic tests for Cepheid Disclaimer detection and/or diagnosis of COVID-19 under Cepheid Disclaimer Section 564(b)(1) of the Act, 21 U.S.C. 360bbb- Cepheid Disclaimer 3(b)(1), unless the authorization is terminated or Cepheid Disclaimer revoked sooner. PERFORMED BY: [place] [address] PATHOLOGIST HOTEL DESK CLERK АННА AJ M.D. Normal [facility] Comment on above: Performed By: #### C OVID19 FLU RSV, CEPHEID NEG #### [address] Cepheid COVID PCR Negativeon 07-28-2022 SARS-CoV-2 (COVID-19) RNA OLIMPIA+probe Ql (Unsp spec) Negative Normal Negative [facility] Comment on above: Result Comment: This is a duplicate Cepheid Xpert Xpress CoV-2/Flu/RSV Plus RNA by RT-PCR result to be used for statistical tracking purpose only. PERFORMED BY: [place] [phone] PATHOLOGIST HOTEL DESK CLERK АННА AJ M.D. Performed By: #### C OVID19 FLU RSV, CEPHEID NEG #### [address] Complete Blood Count Auto Di ffon 07-28-2022 Basophils (Bld) [#/Vol] 0.0 10*3/uL Normal 0.0-0.2 [facility] Comment on above: Result Comment: PERF ORMED BY: [place] [phone] PATHOLOGIST HOTEL DESK CLERK АННА AJ M.D. Performed By: #### C MP, CBC #### [address] [place] [address] [place] Basophils/100 WBC (Bld) 0.2 % Normal . [facility] Comment on above: Performed By: #### C MP, CBC #### [address] Eosinophils (Bld) [#/Vol] 0.0 10*3/uL Normal 0.0-0.45 [facility] Comment on above: Performed By: #### C MP, CBC #### [address] Eosinophils/100 WBC (Bld) 0.2 % Normal . [facility] Comment on above: Performed By: #### C MP, CBC #### [address] Erythrocyte distribution width (RBC) [Ratio] 13.9 % Normal 11.9-15.3 [facility] Comment on above: Performed By: #### C MP, CBC #### [address] Hematocrit (Bld) [Volume fraction] 39.0 % Normal 34.0-46.4 [facility] Comment on above: Performed By: #### C MP, CBC #### [address] Hemoglobin (Bld) [Mass/Vol] 12.7 g/dL Normal 11.8-15.4 [facility] Comment on above: Performed By: #### C MP, CBC #### [address] Lymphocytes (Bld) [#/Vol] 0.3 10*3/uL Low 1.00-4.8 [facility] Comment on above: Performed By: #### C MP, CBC #### [address] Lymphocytes/100 WBC (Bld) 4.7 % Normal . [facility] Comment on above: Performed By: #### C MP, CBC #### [address] MCH (RBC) [Entitic mass] 27.6 pg Normal 24.7-34.3 [facility] Comment on above: Performed By: #### C MP, CBC #### [address] MCV (RBC) [Entitic vol] 84.5 fL Normal 80-100 [facility] Comment on above: Performed By: #### C MP, CBC #### [address] Mean Corpuscular HGB Conc 32.6 g/dL Normal 32.0-35.0 [facility] Comment on above: Performed By: #### C MP, CBC #### [address] Monocytes (Bld) [#/Vol] 0.2 10*3/uL Normal 0.0-0.8 [facility] Comment on above: Performed By: #### C MP, CBC #### [address] Monocytes/100 WBC (Bld) 22.31 % High 0.00-20.00 [facility] Comment on above: Result Comment: For adults in ED, MDW > 20.0 may be associated with a higher risk of sepsis during the first 12 hrs of hospital admission Performed By: #### C MP, CBC #### [address] Monocytes/100 WBC (Bld) 3.3 % Normal . [facility] Comment on above: Performed By: #### C MP, CBC #### [address] Neutrophils (Bld) [#/Vol] 6.3 10*3/uL Normal 1.8-7.7 [facility] Comment on above: Performed By: #### C MP, CBC #### [address] Neutrophils/100 WBC (Bld) 91.6 % Normal . [facility] Comment on above: Performed By: #### C MP, CBC #### [place] [address] NRBC% 0.0 /100{WBC} Normal 0-0.5 [facility] Comment on above: Performed By: #### C MP, CBC #### [address] Platelet mean volume (Bld) [Entitic vol] 6.8 fL Normal 6.3-10.7 [facility] Comment on above: Performed By: #### C MP, CBC #### [address] Platelets (Bld) [#/Vol] 240 10*3/uL Normal 150-450 [facility] Comment on above: Performed By: #### C MP, CBC #### [address] RBC (Bld) [#/Vol] 4.61 10*6/uL Normal 3.60-5.00 [facility] Comment on above: Performed By: #### C MP, CBC #### [address] WBC (Bld) [#/Vol] 6.9 10*3/uL Normal 3.8-11.6 [facility] Comment on above: Performed By: #### C MP, CBC #### [address] Comprehensive Metabolic Pane makayla 07-28-2022 Albumin [Mass/Vol] 4.2 g/dL Normal 3.2-5.5 [facility] Comment on above: Performed By: #### C MP, CBC #### [address] Albumin/Globulin [Mass ratio] 1.4 {ratio} Normal [facility] Comment on above: Performed By: #### C MP, CBC #### [address] ALP [Catalytic activity/Vol] 38 U/L Normal 32-92 [facility] Comment on above: Performed By: #### C MP, CBC #### [facility] [address] ALT [Catalytic activity/Vol] 16 U/L Normal 10-60 [facility] Comment on above: Performed By: #### C MP, CBC #### [facility] [address] Anion gap [Moles/Vol] 13.8 mmol/L Normal 6.0-15.0 [facility] Comment on above: Performed By: #### C MP, CBC #### [facility] [address] AST [Catalytic activity/Vol] 18 U/L Normal 10-42 [facility] Comment on above: Performed By: #### C MP, CBC #### [facility] [address] Bilirubin [Mass/Vol] 1.1 mg/dL Normal 0.3-1.2 [facility] Comment on above: Performed By: #### C MP, CBC #### [facility] [address] [place] [address] Calcium [Mass/Vol] 9.1 mg/dL Normal 8.2-10.2 [facility] Comment on above: Performed By: #### C MP, CBC #### [facility] [address] [place] [address] Chloride [Moles/Vol] 100 mmol/L Normal 95-114 [facility] Comment on above: Performed By: #### C MP, CBC #### [facility] [address] CO2 [Moles/Vol] 24.8 mmol/L Normal 22.0-30.0 [facility] Comment on above: Performed By: #### C MP, CBC #### [facility] [address] Creatinine [Mass/Vol] 0.66 mg/dL Normal 0.44-1.03 [facility] Comment on above: Performed By: #### C MP, CBC #### [facility] [address] [place] [address] [place] Creatinine Clr Calc Pharmacy 93.59 [facility] Comment on above: Result Comment: PERF ORMED BY: [place] [address] PATHOLOGIST HOTEL DESK CLERK АННА AJ M.D. Performed By: #### C MP, CBC #### [address] Estimated GFR ( Barbara > 60 [facility] Comment on above: Result Comment: GFR estimated reference range: According to KDOQI guidelines, <60 ml/min/1.73m2 is sufficient to diagnose a patient with chronic kidney disease. Performed By: #### C MP, CBC #### [address] Estimated GFR (Non- Am > 60 [facility] Comment on above: Performed By: #### C MP, CBC #### [address] Globulin (S) [Mass/Vol] 3.0 g/dL [facility] Comment on above: Performed By: #### C MP, CBC #### [address] Glucose [Mass/Vol] 98 mg/dL Normal 70-100 [facility] Comment on above: Result Comment: [place] Glucose Reference Range is dependent on time and content of last meal. Glucose of more than 200 mg/dL in a nonstressed, ambulatory subject supports the diagnosis of Diabetes Mellitus. ADA recommended reference range Performed By: #### C MP, CBC #### [address] Potassium [Moles/Vol] 3.6 mmol/L Normal 3.5-5.1 [facility] Comment on above: Performed By: #### C MP, CBC #### [address] Protein [Mass/Vol] 7.2 g/dL Normal 6.1-7.9 [facility] Comment on above: Performed By: #### C MP, CBC #### [facility] [address] [place] [address] [place] Sodium [Moles/Vol] 135 mmol/L Low 136-146 [facility] Comment on above: Performed By: #### C MP, CBC #### [facility] [address] [place] [address] [place] Urea nitrogen [Mass/Vol] 13 mg/dL Normal 9-23 [facility] Comment on above: Performed By: #### C MP, CBC #### [facility] [address] Basophils Auto (Bld) [#/Vol] Ordered By: Christian Birch on 07-27-2022 Basophils (Bld) [#/Vol] 0.0 10*3/uL 0.0-0.2 [facility] Basophils/100 WBC Auto (Bld) Ordered By: Christian Birch on 07-27-2022 Basophils/100 WBC (Bld) 0.2 % . [facility] Body fluid albumin measureme nt (mass/volume)Ordered By: Christian Birch on 07-27-2022 Albumin (Body fld) [Mass/Vol] 4.2 g/dL 3.2-5.5 [facility] Creatinine and Glomerular fi ltration rate.predicted panel (S/P/Bld)Ordered By: Christian Birch on 07-27-2022 Creatinine [Mass/Vol] 0.66 mg/dL 0.44-1.03 [facility] Eosinophils Auto (Bld) [#/Vo l]Ordered By: Christian Birch on 07-27-2022 Eosinophils (Bld) [#/Vol] 0.0 10*3/uL 0.0-0.45 [facility] Eosinophils/100 WBC Auto (Bl d)Ordered By: Christian Birch on 07-27-2022 Eosinophils/100 WBC (Bld) 0.2 % . [facility] Erythrocyte distribution wid th Auto (RBC) [Ratio]Ordered By: Christian Birch on 07-27-2022 Erythrocyte distribution width (RBC) [Ratio] 13.9 % 11.9-15.3 [facility] Estimated glomerular filtrat ion rate (GFR) non- AmericanOrdered By: Christian Birch on 07-27-2022 GFR/1.73 sq M.predicted among non-blacks MDRD (S/P/Bld) [Vol rate/Area] > 60 mL/Min [facility] Globulin Calc (S) [Mass/Vol] Ordered By: Christian Birch on 07-27-2022 Globulin (S) [Mass/Vol] 3.0 g/dL [facility] Hematocrit Auto (Bld) [Volum e fraction]Ordered By: Christian Birch on 07-27-2022 Hematocrit (Bld) [Volume fraction] 39.0 % 34.0-46.4 [facility] Hemoglobin [Mass/volume] in BloodOrdered By: Christian Birch on 07-27-2022 Hemoglobin (Bld) [Mass/Vol] 12.7 g/dL 11.8-15.4 [facility] Leukocytes [#/volume] correc lucho for nucleated erythrocytes in Blood by Automated counOrdered By: Christian Birch on 07-27-2022 WBC corrected for nucl RBC Auto (Bld) [#/Vol] 6.9 10*3/uL 3.8-11.6 [facility] Lymphocytes Auto (Bld) [#/Vo l]Ordered By: Christian Birch on 07-27-2022 Lymphocytes (Bld) [#/Vol] 0.3 10*3/uL 1.00-4.8 [facility] Lymphocytes/100 WBC Auto (Bl d)Ordered By: Christian Birch on 07-27-2022 Lymphocytes/100 WBC (Bld) 4.7 % . [facility] MCH Auto (RBC) [Entitic mass ]Ordered By: Christian Birch on 07-27-2022 MCH (RBC) [Entitic mass] 27.6 pg 24.7-34.3 [facility] MCHC Auto (RBC) [Mass/Vol]Or dered By: Christian Birch on 07-27-2022 MCHC (RBC) [Mass/Vol] 32.6 g/dL 32.0-35.0 [facility] MCV Auto (RBC) [Entitic vol] Ordered By: Christian Birch on 07-27-2022 MCV (RBC) [Entitic vol] 84.5 fL 80-100 [facility] Monocyte distribution width [Entitic volume] in Blood by AutomatedOrdered By: Christian Birch on 07-27-2022 Monocyte distribution width Auto (Bld) [Entitic vol] 22.31 % 0.00-20.00 [facility] Comment on above: For adults in ED, MD W > 20.0 may be associated with a higher risk of sepsis during the first 12 hrs of hospital admission Monocytes Auto (Bld) [#/Vol] Ordered By: Christian Birch on 07-27-2022 Monocytes (Bld) [#/Vol] 0.2 10*3/uL 0.0-0.8 [facility] Monocytes/100 WBC Auto (Bld) Ordered By: Christian Birch on 07-27-2022 Monocytes/100 WBC (Bld) 3.3 % . [facility] Neutrophils Auto (Bld) [#/Vo l]Ordered By: Christian Birch on 07-27-2022 Neutrophils (Bld) [#/Vol] 6.3 10*3/uL 1.8-7.7 [facility] Neutrophils/100 WBC Auto (Bl d)Ordered By: Christian Birch on 07-27-2022 Neutrophils/100 WBC (Bld) 91.6 % . [facility] No Panel InformationOrdered By: Christian Birch on 07-27-2022 Estimated GFR () > 60 mL/Min [facility] Comment on above: GFR estimated refere nce range: According to KDOQI guidelines, <60 ml/min/1.73m2 is sufficient to diagnose a patient with chronic kidney disease. Pharmacy Creatinine Clearance (Chem 93.59 [facility] Nucleated erythrocytes [Pres ence] in Blood by Automated countOrdered By: Christian Birch on 07-27-2022 Nucleated RBC Auto Ql (Bld) 0.0 /100{WBC} 0-0.5 [facility] Platelet mean volume Auto (B ld) [Entitic vol]Ordered By: Christian Birch on 07-27-2022 Platelet mean volume (Bld) [Entitic vol] 6.8 fL 6.3-10.7 [facility] Platelets Auto (Bld) [#/Vol] Ordered By: Christian Birch on 07-27-2022 Platelets (Bld) [#/Vol] 240 10*3/uL 150-450 [facility] Protein [Mass/volume] in Ser um or PlasmaOrdered By: Christian Birch on 07-27-2022 Protein [Mass/Vol] 7.2 g/dL 6.1-7.9 [facility] RBC Auto (Bld) [#/Vol]Ordere d By: Christian Birch on 07-27-2022 RBC (Bld) [#/Vol] 4.61 10*6/uL 3.60-5.00 [facility] Serum or plasma alanine arshad otransferase measurement without P-5'-P (enzymatic activiOrdered By: Christian Birch on 07-27-2022 ALT No additional P-5'-P [Catalytic activity/Vol] 16 U/L 10-60 [facility] Serum or plasma albumin/glob ulin mass ratioOrdered By: Christian Birch on 07-27-2022 Albumin/Globulin [Mass ratio] 1.4 {ratio} [facility] Serum or plasma alkaline [place] sphatase measurement (enzymatic activity/volume)Ordered By: Christian Birch on 07-27-2022 ALP [Catalytic activity/Vol] 38 U/L 32-92 [facility] Serum or plasma anion gap de terminationOrdered By: Christian Birch on 07-27-2022 Anion gap [Moles/Vol] 13.8 mmol/L 6.0-15.0 [facility] Serum or plasma aspartate am inotransferase measurement (enzymatic activity/volume)Ordered By: Christian Birch on 07-27-2022 AST [Catalytic activity/Vol] 18 U/L 10-42 [facility] Serum or plasma calcium marcos urement (mass/volume)Ordered By: Christian Birch on 07-27-2022 Calcium [Mass/Vol] 9.1 mg/dL 8.2-10.2 [facility] Serum or plasma chloride carlos surement (moles/volume)Ordered By: Christian Birch on 07-27-2022 Chloride [Moles/Vol] 100 mmol/L 95-114 [facility] Serum or plasma glucose marcos urement (mass/volume)Ordered By: Christian Birch on 07-27-2022 Glucose [Mass/Vol] 98 mg/dL 70-100 [facility] Comment on above: ADA recommended refe rence rangeRandom Glucose Reference Range is dependent on time and content of last meal. Glucose of more than 200 mg/dL in a nonstressed, ambulatory subject supports the diagnosis of Diabetes Mellitus. Serum or plasma potassium me asurement (moles/volume)Ordered By: Christian Birch on 07-27-2022 Potassium [Moles/Vol] 3.6 mmol/L 3.5-5.1 [facility] Serum or plasma sodium measu rement (moles/volume)Ordered By: Christian Birch on 07-27-2022 Sodium [Moles/Vol] 135 mmol/L 136-146 [facility] Serum or plasma total biliru bin measurement (mass/volume)Ordered By: Christian Birch on 07-27-2022 Bilirubin [Mass/Vol] 1.1 mg/dL 0.3-1.2 [facility] Serum or plasma total carbon dioxide measurement (moles/volume)Ordered By: Christian Birch on 07-27-2022 CO2 [Moles/Vol] 24.8 mmol/L 22.0-30.0 [facility] Serum or plasma urea nitroge n measurement (mass/volume)Ordered By: Christian Birch on 07-27-2022 Urea nitrogen [Mass/Vol] 13 mg/dL 9- [facility] WBC Auto (Bld) [#/Vol]Ordere d By: Christian Birch on 07-27-2022 WBC (Bld) [#/Vol] 6.9 10*3/uL 3.8-11.6 [facility] PAP ACOG PANEL 2: 23 to 31on 07-07-2022 . . Normal [facility] Comment on above: Performed By: #### G IPANEL #### [facility] [address] [place] [address] [address] Adriana Chawla Age Gdln ACOG Testing 23- Normal [facility] Comment on above: Performed By: #### G IPANEL #### [facility] [address] [place] [address] [address] Adriana Chawla DIAGNOSIS: Comment [facility] Comment on above: Result Comment: NEGA TIVE FOR INTRAEPITHELIAL LESION OR MALIGNANCY. Performed By: #### G IPANEL #### [facility] [address] [place] [address] [address] Adriana Chawla Methodology: Comment Normal [facility] Comment on above: Result Comment: This liquid based ThinPrep(R) pap test was screened with the use of an image guided system. Performed By: #### G IPANEL #### [facility] [address] [place] [address] Dr. Adriana Chawla Note: Comment Normal [facility] Comment on above: Result Comment: The Pap smear is a screening test designed to aid in the detection of premalignant and malignant conditions of the uterine cervix. It is not a diagnostic procedure and should not be used as the sole means of detecting cervical cancer. Both false-positive and false-negative reports do occur. . Performed By: #### G IPANEL #### [facility] [address] [place] [address] Dr. Adriana Chawla Performed by: Comment Normal [facility] Comment on above: Result Comment: Sam Bush, Business Strategy Manager (ASCP) Performed By: #### G IPANEL #### [facility] [address] [place] [address] Dr. Adriana Chawla Reflex Criteria: Comment Normal [facility] Comment on above: Result Comment: The HPV DNA reflex criteria were not met with this specimen result therefore, no HPV testing was performed. . Performed By: #### G IPANEL #### [facility] [address] [place] [address] Dr. Adriana Chawla Specimen adequacy: Comment Normal [facility] Comment on above: Result Comment: Sati sfactory for evaluation. Endocervical and/or squamous metaplastic cells (endocervical component) are present. Performed By: #### G IPANEL #### [facility] [address] [place] [address] Dr. Adriana Chawla CHLAMYDIA/GONOCOCCUS OLIMPIA (SW AB/URINE/PAPon 07-01-2022 Chlamydia trachomatis, OLIMPIA Negative Normal Negative [facility] Comment on above: Performed By: #### V AGINT #### [facility] [address] [place] [address] Dr. Adriana Chawla Neisseria gonorrhoeae, OLIMPIA Negative Normal Negative [facility] Comment on above: Performed By: #### V AGINT #### [facility] [address] [place] [address] [address] Adriana Chawla VAGINITIS/VAGINOSIS DNA PROB Richard 07-01-2022 Lilli species Negative Normal Negative [facility] Comment on above: Performed By: #### V AGINT #### [facility] [address] [place] [address] [address] Adriana Chawla Gardnerella vaginalis Negative Normal Negative [facility] Comment on above: Performed By: #### V AGINT #### [facility] [address] [place] [address] [address] Adriana Chawla Trichomonas vaginalis Negative Normal Negative [facility] Comment on above: Performed By: #### V AGINT #### [facility] [address] [place] [address] [address] Adriana Chawla US PELVIS AND TRANSVAGon US PELVIS AND TRANSVAG EXAMINATION: US P VELVET AND TRANSVAG HISTORY: Excessive menstruation with irregular cycle COMPARISON: No relevant comparison available. FINDINGS: Abdominal and transvaginal images The uterus is normal in size, contour and echotexture measuring 7.0 x 5.3 x 3.0 cm. No focal myometrial mass The endometrium measures 6. The right ovary is normal in appearance measuring 4.3 x 2.5 x 2.8 cm. Normal color and Doppler flow. Area of anechoic echogenicity measuring 1.7 cm, simple ovarian cyst The left ovary is normal in appearance measuring 3.1 x 2.1 x 1.3 cm. Normal color Doppler flow. IMPRESSION: 1.7 cm right ovary simple cyst Electronically authenticated by: LOR ROSARIO Date: 2022-06-17 18:21 Normal [facility] Vital Signs Date Time Vital Sign Value Performing Clinician Faci lity 10-29-2022 22:28-0400 Diastolic blood pressure 56 mm[Hg] MD Chinmay Fernandez Work Phone: [facility] 10-29-2022 22:28-0400 Heart rate 76 /min MD Chinmay Fernandez Work Phone: [facility] 10-29-2022 22:28-0400 Respiratory rate 18 /min MD Chinmay Fernandez Work Phone: [facility] 10-29-2022 22:28-0400 SaO2% (BldA) [Mass fraction] 98 % MD Chinmay Fernandez Work Phone: [facility] 10-29-2022 22:28-0400 Systolic blood pressure 99 mm[Hg] MD Chinmay Fernandez Work Phone: [facility] 10-29-2022 16:11-0400 Body height 152.4 cm MD Chinmay Fernandez Work Phone: [facility] 10-29-2022 16:11-0400 Body temperature 98.5 [degF] MD Chinmay Fernandez Work Phone: [facility] 10-29-2022 16:11-0400 Body weight 48.55 kg MD Chinmay Fernandez Work Phone: [facility] 07-28-2022 02:35-0500 Body temperature 98.8 [degF] MD Chinmay Fernandez Work Phone: [facility] 07-28-2022 02:35-0500 Diastolic blood pressure 56 mm[Hg] MD Chinmay Fernandez Work Phone: [facility] 07-28-2022 02:35-0500 Heart rate 98 /min MD Chinmay Fernandez Work Phone: [facility] [place] 07-28-2022 02:35-0500 Respiratory rate 20 /min MD Chinmay Fenrandez Work Phone: [facility] 07-28-2022 02:35-0500 SaO2% (BldA) [Mass fraction] 98 % MD Chinmay Fernandez Work Phone: [facility] 07-28-2022 02:35-0500 Systolic blood pressure 102 mm[Hg] MD Chinmay Fernandez Work Phone: [facility] 07-27-2022 21:13-0500 Body height 152.4 cm MD Chinmay Fernandez Work Phone: [facility] 07-27-2022 21:13-7074 Body weight 49.05 kg MD Chinmay Fernandez Work Phone: [facility] Encounters Encounter Date Encounter Type Care Provider Facility Start: 12-15-2023 End: 12-15-2023 ambulatory VICTOR HUGO WADE Not Available Start: 12-01-2022 End: 12-02-2022 ambulatory Ayo MCCOLLUM Facility: [place] Start: 11-04-[address] CHINMAY FERNANDEZ . Facili ty:[facility] Start: 11-03-2022 End: 11-03-[address] CHINMAY FERNANDEZ . Facility:[facility] Start: 10-29-2022 End: 10-30-2022 Emergency department patient visit Robert Jacobson Facility:[facility] Start: 10-29-2022 End: 10-29-2022 Emergency department patient visit MD Chinmay Fernandez Work Phone: [facility] Work Phone: Start: 10-22-2022 End: 10-23-[address] MIKEY LONGORIA . Facility:[facility] Start: 10-22-2022 End: 10-22-[address] CHINMAY FERNANDEZ . Facility:[facility] Start: 08-13-2022 End: 08-13-[address] CHINMAY FERNANDEZ . Facility:[facility] Start: 08-05-2022 End: 08-06-[address] CHINMAY FERNANDEZ . Facility:[facility] Start: 07-27-2022 End: 07-28-2022 Emergency department patient visit Christian Birch Jr Facility:[facility] Start: 07-27-2022 End: 07-28-2022 Emergency department patient visit MD Chinmay Fernandez Work Phone: [facility] Start: 06-29-2022 End: 06-29-[address] GABRIELA BROWNING . Facility:[facility] Start: 06-17-2022 End: 06-18-[address] CHINMAY FERNANDEZ . Facility: Procedures Date Procedure Procedure Detail Performing Clinician Start: 10-29-2022 US scan of gallbladder MD Chinmay Fernandez Work Phone: SARS-CoV-2, Influenz a & RSV (PCR) MD Chinmay Fernandez Work Phone: Plan of Treatment Date Care Activity Detail Author Start: 10-29-2022 Bacteria identified in Urine by Culture [facility] Start: 07-27-2022 [facility] Patient Education [facility] Work Phone: Patient referral [facility] Work Phone: Payers Date Payer Category Payer Private Health Insurance [id number] 1997 Unknown [id number] 2.16.84 [id number] 1997 Unknown [id number] 2.16.84 [id number] 1997 Unknown [id number] 2.16.84 [id number] 1997 Unknown [id number] 2.16.84 [id number] 1997 Unknown [id number] 2.16.84 [id number] 1997 Unknown [id number] 2.16.84 [id number] 1997 Unknown [id number] 2.16.84 [id number] 1997 Unknown [id number] 2.16.84 [id number] 1997 Unknown [id number] 2.16.8 [id number] 1997 Unknown [id number] 2.16.84 [id number] 1959 Self-pay 1959 Unknown [id number] Unknown [id number] 2.16.8 [id number] Unknown [id number] 2.16.8 [id number] Social History Date Type Detail Facility Start: 07-27-2022 End: 10-29-2022 Tobacco smoking status NHIS Never smoked tobacco (finding) [facility] [place] Start: 1995 Sex Assigned At Female F [facility] Clinical Note 12-01-2022 Note Date & Type Note Facility 12-01-2022 Note Chief Complaint consultation for abdominal pain HPI Staff 27 year old female presents on consultation from Dr. Fernandez for abdominal pain. Presented to [place] ED 10/22 with complaint of right sided abdominal pain and nausea. Prescribed Bentyl. Returned to ED several hours later with continued abdominal pain and new onset diarrhea and chills. Initially CT unremarkable to suboptimal evaluation. Repeat CT again unremarkable. Presented to [facility] ED 10/29 with RUQ pain, nausea and vomiting. Gallbladder US- normal. Stool studies completed 11/03 with positive c.diff.; prescribed Metronidazole 250mg QID x 10 days and Vancomycin 125mg QID x 10 days. Was on Cipro for UTI; [facility] changed this to Keflex due to patient complaint of not agreeing with her . Verbalized she completed course of ATB's with resolution of diarrhea. She reports intermittent burning epigastric pain. Verbalized intermittent nausea, primarily in the morning and when stomach is empty. Denies heartburn, indigestion or vomiting. Some bloating and belching. States she resumed Protonix and Carafate with improvement in symptoms. She was on gluten free diet in the past. She stopped following this for a period of time but recently resumed diet. Last EGD and colonoscopy completed 05/2019 for abdominal pain with antral ulcers, gastritis, duodenitis and normal colonoscopy. History of Present Illness 27 yo female referred for upper abd pain; patient reports onset 2 month ago, restarted on Protonix and Carafate; patient has h/o antral ulcers dx in 2019 on EGD, normal colonoscopy at that time; also fmhx of Celiac disease, has been on gluten free diet intermittently; some improvement with medications, then 6 weeks ago developed worsening pain, seen in ED, dx with UTI, placed on Cipro, then switched to Keflex; developed diarrhea; had positive C diff 4 weeks ago, treated with Flagyl and Vancomycin; diarrhea has resolved and pain is improving, still mild soreness at times; no N/V; no change with eating; no melena or hematochezia, formed stools. patient had multiple abd/pelvic ct scans and RUQ US, all wnl; normal labs other than UTI and C diff; no GERD or dysphagia. no asa or NSAID use; no tobacco use. still eating some gluten. Review of Systems PHQ Score Initial Depression Screen Score: 0 ROS - Provider Constitutional: no fever, no sweats, no weight loss. Eyes: no glasses, no blurred vision, no visual loss. ENMT: no dentures, no hoarseness, no swallowing difficulties, no hearing loss, no ear infection(s), no nose bleeds. Cardiovascular: normal blood pressure, no chest pain, regular heartbeat, no heart murmur. Respiratory: no shortness of breath, no cough, no asthma, no wheezing. Gastrointestinal: no nausea, no vomiting, no diarrhea, no constipation, no blood in stool, no change in bowel habits, mild abdominal pain, no hepatitis. Genitourinary: no kidney stones, no urine infection, no dysuria. Musculoskeletal: no pain, no weakness. Skin: no changing moles, no rash, no skin lumps. Neurologic: no seizures, no epilepsy, no headache. Psychiatric: no emotional or psychiatric problem. Heme/Lymph: no bleeding problems, no anemia, no blood clots, no transfusions. Allergy/Immunologic: no swollen lymph nodes/glands, no IV drug abuse. Other: Additional ROS info: Except as noted in the above Review of Systems and in the History of Present Illness, all other systems have been reviewed and are negative or noncontributory. Physical Exam Vitals & Measurements HR: 72(Peripheral) RR: 16 BP: 108/56 HT: 59 in HT: 150.5 cm WT: 48 kg WT: 105.6 lb BMI: 21.19 HEENT: normal conjunctiva, sclera clear, no scleral icterus, EOM intact, PERRLA, oral mucosa moist without lesions. Neck: trachea midline, no mass, symmetric, no thyromegaly or nodules, no adenopathy Respiratory: lungs CTA, respirations non labored. Cardiovascular: regular rate and rhythm, no murmur, no pedal edema or varicosities. Gastrointestinal: soft, non distended, no tenderness, no masses, no palpable hernias, diastasis recti no, no hepatosplenomegaly; normal bs Lymphatic: no cervical adenopathy, no supraclavicular adenopathy Musculoskeletal: normal gait, digits and nails without infection, nodes, cyanosis, clubbing. Skin: no rashes, no lesions, no ulcers, no subcutaneous nodules, induration. Psychiatric/Neuro: oriented to time, place, person, judgement normal, affect appropriate for age, insight intact, no focal deficits. Tests: labs reviewed, x-rays reviewed, review of old records completed, Assessment/Plan 1. Abdominal pain, RUQ (R10.11: Right upper quadrant pain) recent C diff infection, likely residual inflammation from that; improving; recommend continue current medications; if does not resolve over next 6 weeks, or worsens, may require EGD for further evaluation; call with problems/questions. 2. Abdominal pain, epigastric (R10.13: Epigastric pain) see # 1 Follow-up No qualifying data available Problem List/Past Medical History (more content not included)... [facility] Comment on above: Result Comment: Elec tronically Signed By: CHUN WATT, Ayo Killian\Date and Time Signed: 12/01/22 19:24 EDT Evaluation note Note Date & Type Note Facility Evaluation note [facility]: Chief Complaint and Reason for Visit Chief Complaint vomiting Chief Complaint R side abd pain Advance Directives No Advanced Directives Records Found Advance Directive Response Recorded Date/ Time Advance Directives No July 10:15pm Advance Directive Response Recorded Date/ Time Advance Directives No July 11:15pm Summary Purpose Family History No Family History Records FoundNo Family History Records FoundNo Family History Records FoundNo Family History Records Found Additional Source Comments Care Teams (unrecognized sec tion and content) Team Status: Inactive Member Role Status Dates Chinmay Fernandez MD Primary Care Provider Active Christian Birch Jr, MD Emergency Provider Active Team Status: Active Member Role Status Dates Chinmay Fernandez MD Primary Care Provider Active Team Status: Inactive Member Role Status Dates Chinmay Fernandez MD Primary Care Provider Active Robert Jacobson PA-C Emergency Provider Active Goals (unrecognized section and content) Goals may be documented in a n alternate sectionGoals may be documented in an alternate section INFORMATION SOURCE (unrecogn ized section and content) DATE CREATED AUTHOR 10/31/2022 [facility] DATE CREATED AUTHOR AUTHOR'S ORGANIZ ATION 11/14/2022 [facility] DATE CREATED AUTHOR AUTHOR'S ORGANIZ ATION 12/03/2022 [facility] DATE CREATED AUTHOR AUTHOR'S ORGANIZ ATION 12/17/2023 [facility] FOR RECORDS PERTAINING TO PATIENTS WHO ARE OR HAVE BEEN ENROLLED IN A CHEMICAL DEPENDENCY/SUBSTANCEABUSE PROGRAM, SOME INFORMATION MAY BE OMITTED. This clinical summary was aggregated from multiple sources. Caution should be exercised in using it in the provision of clinical care. This summary normalizes information from multiple sources, and as a consequence, information in this document may materially change the coding, format and clinical context of patient data. In addition, data may be omitted in some cases. CLINICAL DECISIONS SHOULD BE BASED ON THE PRIMARY CLINICAL RECORDS. [facility] [employer] provides no warranty or guarantee of the accuracy or completeness of information in this document.
[2024-03-10 15:17] LABS: Internal Control Within Normal Limits; SARS-CoV-2 Ag POSITIVE (NEGATIVE)
== END 2024-03-10 13:58 | disposition home or self-care (01) ==
LOC: LAB 13:57
PROVIDERS: PCP Family Medicine; Visit Provider Family Medicine
DX: J02.9 Acute pharyngitis, unspecified (principal)
CPT/HCPCS: 87811

== ENCOUNTER 2024-08-11 22:28 | Emergency (ER) | payer OTHER, SELFPAY ==
[2024-08-11 22:33] VITALS: BP 110/74; PULSE 107; TEMP 36.9; O2SAT 100; BMI 18.9
--- OUTSIDE RECORDS SUMMARY | 2024-08-11 22:33 | XMS_ITS | CCD ---
Author Organization [facility] Care Team Providers Care Vice President Of Compliance Name Role Phone MD Chinmay Fernandez Primary Care Provider [phone] MD Christian Birch Jr Emergency Provider MD Chinmay Fernandez Primary Care Provider [phone] BHAVNA Jacobson Emergency Provider Christian Birch Jr Admitting Unavailable Christian Birch [...] Unavailable HOY ., DR MOY Admitting Unavailable RYDER, DR LOR [employer] Unavailable KARASIK ., [...] Care Unavailable DIAB ., CONNIE Admitting Unavailable URPA WEIR Consulting Unavaila ble DIAB ., CONNIE [...] sources) Amoxicillin; Translations: [amoxicillin] Drug Allergy 01-14-2014 [facility] Medications Current Medications Medication Drug Class(es) Dates [...] spray (2 sources) Anticholinergic Start: 07-27-2022 Ipratropium [place] Active 2 SPRAY INTRANASAL Daily July 27, [...] once daily Triamcinolone Acetonide (Nasacort) 55 mcg Aerosol,[place] Active 1 SPRAY INTRANASAL Daily July 27, [...] Onset: 08-18-2022 Episodic Other aftercare (1 source) 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; Translations: [EXAMINING OFFICER HORMONAL CONTRACEPTIVES] Onset: 10-26-2022 Episodic Other aftercare (1 source) Other bed bug exterminator (current) drug therapy; Translations: [OTH EXAMINING OFFICER CURRENT DRUG THERAPY] Onset: 10-26-2022 Episodic Unclassified [...] Interpretation Reference Range Facility [facility] 12-03-2022 Forms [id number]#1.00CD:127 Normal [facility] Ambulatory Visit Summaryon 0 12-01-2022 Ambulatory Visit [...] Diarrhea Iron deficiency anemia Weight loss Normal [facility] ED Note-Physicianon 12-01-19 ED Note-Physician [id number]#1.00CD:127 [facility] Lab Reportson 11-30-2022 Lab Reports [id number]#1.00CD:127 [facility] ED Note-Physicianon 11-13-19 ED Note-Physician [id number]#1.00CD:127 [facility] Patient Correspondenceon Patient Correspondence [id number]#1.00CD:127 [facility] RAD - CT Reporton 11-12-2022 RAD - CT Report [id number]#1.00CD:127 [facility] RAD - CT Report [id number]#1.00CD:127 [facility] RAD - Ultrasound Reporton RAD - Ultrasound Report [id number]#1.00CD:127 [facility] Physician Referralon 023 Physician Referral [id number]#1.00CD:127 [facility] OVA AND PARASITE EXAMINATION on 11-06-2022 Ova + Parasite Exam Final report Normal [facility] Comment on above: Result Comment: Thes e results were obtained using wet preparation(s) and trichrome stained smear. This test does not include testing for Cryptosporidium parvum, Cyclospora, or Microsporidia. Performed By: #### G IPANEL #### [facility] [address] [place] [address] Dr. Adriana Chawla Result 1 Comment Normal [facility] Comment on above: Result Comment: No o va, cysts, or parasites seen. . One negative specimen does not rule out the possibility of a parasitic infection. Performed By: #### G IPANEL #### [facility] [address] [place] [address] Dr. Adriana Chawla GI PANEL (PCR)on 11-03-2022 Adenovirus F 40/41 Not detected Normal NOT DETECTED [facility] Comment on above: Performed By: #### G IPANEL #### [facility] [address] [place] [address] Dr. Adriana Chawla Astrovirus Not detected Normal NOT DETECTED [facility] Comment on above: Performed By: #### G IPANEL #### [facility] [address] [place] [address] Dr. Adriana Chawla C. Diff toxin A/B Detected Critically abnormal NOT DETECTED [facility] Comment on above: Performed By: #### G IPANEL #### [facility] [address] [place] [address] Dr. Adriana Chawla Campylobacter Not detected Normal NOT DETECTED [facility] Comment on above: Performed By: #### G IPANEL #### [facility] [address] [place] [address] Dr. Adriana Chawla Cryptosporidium Not detected Normal NOT DETECTED [facility] Comment on above: Performed By: #### G IPANEL #### [facility] [address] [place] [address] Dr. Adriana Chawla Cyclos. Cayetanensis Not detected Normal NOT DETECTED [facility] Comment on above: Performed By: #### G IPANEL #### [facility] [address] [place] [address] Dr. Adriana Chawla E. Coli O157 Not Applicable Normal Not Applicable [facility] Comment on above: Performed By: #### G IPANEL #### [facility] [address] [place] [address] Dr. Adriana Chawla EAwais histolytica Not detected Normal NOT DETECTED [facility] Comment on above: Performed By: #### G IPANEL #### [facility] [address] [place] [address] Dr. Adriana Chawla EAEC Not detected Normal NOT DETECTED [facility] Comment on above: Performed By: #### G IPANEL #### [facility] [address] [place] [address] Dr. Adriana Chawla EIEC Not detected Normal NOT DETECTED [facility] Comment on above: Performed By: #### G IPANEL #### [facility] [address] [place] [address] Dr. Adriana Chawla EPEC Not detected Normal NOT DETECTED [facility] Comment on above: Performed By: #### G IPANEL #### [facility] [address] [place] [address] Dr. Adriana Chawla ETEC Not detected Normal NOT DETECTED [facility] Comment on above: Performed By: #### G IPANEL #### [facility] [address] [place] [address] Dr. Adriana Nava Lamblia Not detected Normal NOT DETECTED [facility] Comment on above: Performed By: #### G IPANEL #### [facility] [address] [place] [address] Dr. Adriana BAHENA CONTROLS PASSED Normal [facility] Comment on above: Performed By: #### G IPANEL #### [facility] [address] [place] [address] Dr. Adriana HUNTER ARPITA HEADER GI PANEL BACTERIA Normal [facility] Comment on above: Performed By: #### G IPANEL #### [facility] [address] [place] [address] Dr. Adriana HUNTERHD ECOLI GI PANEL DIARRHEAGEN IC E.COLI / SHIGELLA Normal [facility] Comment on above: Performed By: #### G IPANEL #### [facility] [address] [place] [address] Dr. Adriana PADRON INFO SEE BELOW Normal [facility] Comment on above: Result Comment: EAEC - Enteroaggregative E. Coli EPEC- Enteropathogenic E. Coli ETEC- Enterotoxigenic E. Coli lt/st STEC- Shigella-like toxin-producing E. Coli stx1/stx2 EIEC- Shigella/Enteroinvasive E. Coli Performed By: #### G IPANEL #### [facility] [address] [place] [address] Dr. Adriana PADRON PARASITES GI PANEL PARASITES Normal [facility] Comment on above: Performed By: #### G IPANEL #### [facility] [address] [place] [address] Dr. Adriana PADRON VIRUS GI PANEL VIRUSES Normal [facility] Comment on above: Performed By: #### G IPANEL #### [facility] [address] [place] [address] Dr. Adriana Chawla Norovirus GI/GII Not detected Normal NOT DETECTED [facility] Comment on above: Performed By: #### G IPANEL #### [facility] [address] [place] [address] Dr. Adriana Chawla P. Shigelloides Not detected Normal NOT DETECTED [facility] Comment on above: Performed By: #### G IPANEL #### [facility] [address] [place] [address] Dr. Adriana Chawla Rotavirus A Not detected Normal NOT DETECTED [facility] Comment on above: Performed By: #### G IPANEL #### [facility] [address] [place] [address] Dr. Adriana Chawla Salmonella Not detected Normal NOT DETECTED [facility] Comment on above: Performed By: #### G IPANEL #### [facility] [address] [place] [address] Dr. Adriana Chawla Sapovirus Not detected Normal NOT DETECTED [facility] Comment on above: Performed By: #### G IPANEL #### [facility] [address] [place] [address] Dr. Adriana Chawla STEC Not detected Normal NOT DETECTED [facility] Comment on above: Performed By: #### G IPANEL #### [facility] [address] [address] [address] Adriana Chawla Vibrio Not detected Normal NOT DETECTED [facility] Comment on above: Performed By: #### G IPANEL #### [facility] [address] [address] [address] Adriana Chawla Vibrio Cholera Not detected Normal NOT DETECTED [facility] Comment on above: Performed By: #### G IPANEL #### [facility] [address] [address] [address] Adriana Chawla Y. Enterocolitica Not detected Normal NOT DETECTED [facility] Comment on above: Performed By: #### G IPANEL #### [facility] [address] [address] [address] Adriana Chawla OCC BLD IMMUNO SCREENon 10-15 OCCULT BLOOD Negative Normal NEGATIVE [facility] Comment on above: Performed By: #### V AGINT #### [facility] [address] [address] [address] Adriana Chawla Alanine aminotransferase [En zymatic activity/volume] in Serum or PlasmaOrdered By: Robert Jacobson on 10-29-2022 ALT [Catalytic activity/Vol] 10 U/L 7-52 [facility] Albumin [Mass/volume] in Ser um or Plasma by Bromocresol green (BCG) dye binding methoOrdered By: Robert Jacobson on 10-29-2022 Albumin BCG dye [Mass/Vol] 4.5 g/dL 3.5-5.7 [facility] Alkaline phosphatase [Enzyma tic activity/volume] in Serum or PlasmaOrdered By: Robert Jacobson on 10-29-2022 ALP [Catalytic activity/Vol] 36 U/L 34-104 [facility] Amphetamine Screen Ql (U)Ord ered By: Robert Jacobson on 10-29-2022 Amphetamines Ql (U) Negative Negative [facility] Aspartate aminotransferase [ Enzymatic activity/volume] in Serum or PlasmaOrdered By: Robert Jacobson on 10-29-2022 AST [Catalytic activity/Vol] 14 U/L 13-39 [facility] Automated erythrocytes count in urine sediment (number/area)Ordered By: Robert Jacobson on 10-29-2022 RBC Auto (Urine sed) [#/Area] 0-1 [HPF] 0-4 [facility] Automated leukocytes count i n urine sediment (number/area)Ordered By: Robert Jacobson on 10-29-2022 WBC Auto (Urine sed) [#/Area] 10-19 [HPF] 0-4 [facility] Barbiturates [Presence] in U rine by Screen methodOrdered By: Robert Jacobson on 10-29-2022 Barbiturates Screen Ql (U) Negative Negative [facility] Basic Metabolic Panelon 10-14 Anion gap [Moles/Vol] 11.6 mmol/L Normal 6.0-15.0 [facility] Comment on above: Performed By: #### C UU, ADDONUAPLUS, UHCG #### [facility] [address] Calcium [Mass/Vol] 8.9 mg/dL Normal 8.6-10.3 [facility] Comment on above: Performed By: #### C UU, ADDONUAPLUS, UHCG #### [facility] [address] [place] [address] [place] Chloride [Moles/Vol] 105 mmol/L Normal 98-107 [facility] Comment on above: Performed By: #### C UU, ADDONUAPLUS, UHCG #### [facility] [address] [place] [id number] [place] CO2 [Moles/Vol] 24.0 mmol/L Normal 21.0-31.0 [facility] Comment on above: Performed By: #### C UU, ADDONUAPLUS, UHCG #### [facility] [address] [id number] [place] Creatinine [Mass/Vol] 0.67 mg/dL Normal 0.60-1.20 [facility] Comment on above: Performed By: #### C UU, ADDONUAPLUS, UHCG #### [facility] [address] [id number] [place] Creatinine Clr Calc Pharmacy 92.20 Normal [facility] Comment on above: Performed By: #### C TREY KUHN BalwinderG #### [address] GFR/1.73 sq M.predicted MDRD (S/P/Bld) [Vol rate/Area] mL/min/{1.73_m2} [facility] Comment on above: Performed By: #### C TREY KUHN BalwinderG #### [address] Glucose [Mass/Vol] 82 mg/dL Normal 74-109 [facility] Comment on above: Result Comment: [facility] Glucose Reference Range is dependent on time and content of last meal. Glucose of more than 200 mg/dL in a nonstressed, ambulatory subject supports the diagnosis of Diabetes Mellitus. ADA recommended reference range Performed By: #### C TREY KUHN UHCG #### [address] Potassium [Moles/Vol] 3.6 mmol/L Normal 3.5-5.1 [facility] Comment on above: Performed By: #### TREY BURKS BalwinderG #### [address] Sodium [Moles/Vol] 137 mmol/L Normal 136-145 [facility] Comment on above: Performed By: #### TREY BURKS JODI #### [address] Urea nitrogen [Mass/Vol] 12 mg/dL Normal 7-25 [facility] Comment on above: Performed By: #### TREY BURKS BalwinderG #### [address] Basophils Auto (Bld) [#/Vol] Ordered By: Robert Jacobson on 10-29-2022 Basophils (Bld) [#/Vol] 0.0 10*3/uL 0.0-0.2 [facility] Basophils/100 WBC Auto (Bld) Ordered By: Robert Jacobson on 10-29-2022 Basophils/100 WBC (Bld) 0.6 % . [facility] Benzodiazepines Screen Ql (U )Ordered By: Robert Jacobson on 10-29-2022 Benzodiazepines Ql (U) Negative Negative [facility] Benzoylecgonine [Presence] i n Urine by Screen methodOrdered By: Robert Jacobson on 10-29-2022 Benzoylecgonine Screen Ql (U) Negative Negative [facility] Bilirubin Test strip Ql (U)O rdered By: Robert Jacobson on 10-29-2022 Bilirubin Ql (U) Negative Negative [facility] Bilirubin.direct [Mass/volum e] in Serum or PlasmaOrdered By: Robert Jacobson on 10-29-2022 Bilirubin.direct [Mass/Vol] 0.10 mg/dL 0.03-0.18 [facility] Bilirubin.total [Mass/volume ] in Serum or PlasmaOrdered By: Robert Jacobson on 10-29-2022 Bilirubin [Mass/Vol] 0.3 mg/dL 0.3-1.0 [facility] Calcium [Mass/volume] in Ser um or PlasmaOrdered By: Robert Jacobson on 10-29-2022 Calcium [Mass/Vol] 8.9 mg/dL 8.6-10.3 [facility] Cannabinoids [Presence] in U rine by Screen methodOrdered By: Robert Jacobson on 10-29-2022 Cannabinoids Screen Ql (U) Negative Negative [facility] Comment on above: These are unconfirme d results and should not be used for legal purposes. Drug Cut-Off Concentration: AMPH 1000 ng/mL YENY 200 ng/mL ARELIS 200 ng/mL COCM 300 ng/mL OP 300 ng/mL PCP 25 ng/mL THC 20 ng/mL Carbon dioxide, total [Moles /volume] in Serum or PlasmaOrdered By: Robert Jacobson on 10-29-2022 CO2 [Moles/Vol] 24.0 mmol/L 21.0-31.0 [facility] Chloride [Moles/volume] in S justice or PlasmaOrdered By: Robert Jacobson on 10-29-2022 Chloride [Moles/Vol] 105 mmol/L 98-107 [facility] Color Auto (U)Ordered By: Chandler Jacobson on 10-29-2022 Color (U) Yellow Yellow [facility] Complete Blood Count Auto Di ffon 10-29-2022 Basophils (Bld) [#/Vol] 0.0 10*3/uL Normal 0.0-0.2 [facility] Comment on above: Result Comment: PERF ORMED BY: [place] [address] PATHOLOGIST BIT BENDER АННА AJ M.D. Performed By: #### C BC, LACTIC, LIPASE, HS TROP, HEPATIC, DDIMER, BMP #### [address] Basophils/100 WBC (Bld) 0.6 % Normal . [facility] Comment on above: Performed By: #### C BC, LACTIC, LIPASE, HS TROP, HEPATIC, DDIMER, BMP #### [address] Eosinophils (Bld) [#/Vol] 0.1 10*3/uL Normal 0.0-0.45 [facility] Comment on above: Performed By: #### C BC, LACTIC, LIPASE, HS TROP, HEPATIC, DDIMER, BMP #### [address] Eosinophils/100 WBC (Bld) 0.8 % Normal . [facility] Comment on above: Performed By: #### C BC, LACTIC, LIPASE, HS TROP, HEPATIC, DDIMER, BMP #### [address] Erythrocyte distribution width (RBC) [Ratio] 14.6 % Normal 11.9-15.3 [facility] Comment on above: Performed By: #### C BC, LACTIC, LIPASE, HS TROP, HEPATIC, DDIMER, BMP #### [address] Hematocrit (Bld) [Volume fraction] 35.0 % Normal 34.0-46.4 [facility] Comment on above: Performed By: #### C BC, LACTIC, LIPASE, HS TROP, HEPATIC, DDIMER, BMP #### [address] Hemoglobin (Bld) [Mass/Vol] 11.7 g/dL Low 11.8-15.4 [facility] Comment on above: Performed By: #### C BC, LACTIC, LIPASE, HS TROP, HEPATIC, DDIMER, BMP #### [address] Lymphocytes (Bld) [#/Vol] 2.3 10*3/uL Normal 1.00-4.8 [facility] Comment on above: Performed By: #### C BC, LACTIC, LIPASE, HS TROP, HEPATIC, DDIMER, BMP #### [address] Lymphocytes/100 WBC (Bld) 33.6 % Normal . [facility] Comment on above: Performed By: #### C BC, LACTIC, LIPASE, HS TROP, HEPATIC, DDIMER, BMP #### [address] MCH (RBC) [Entitic mass] 27.9 pg Normal 24.7-34.3 [facility] Comment on above: Performed By: #### C BC, LACTIC, LIPASE, HS TROP, HEPATIC, DDIMER, BMP #### [address] MCV (RBC) [Entitic vol] 83.7 fL Normal 80-100 [facility] Comment on above: Performed By: #### C BC, LACTIC, LIPASE, HS TROP, HEPATIC, DDIMER, BMP #### [address] Mean Corpuscular HGB Conc 33.3 g/dL Normal 32.0-35.0 [facility] Comment on above: Performed By: #### C BC, LACTIC, LIPASE, HS TROP, HEPATIC, DDIMER, BMP #### [address] Monocytes (Bld) [#/Vol] 0.5 10*3/uL Normal 0.0-0.8 [facility] Comment on above: Performed By: #### C BC, LACTIC, LIPASE, HS TROP, HEPATIC, DDIMER, BMP #### [facility] [address] [place] [address] [place] Monocytes/100 WBC (Bld) 18.05 % Normal 0.00-20.00 [facility] Comment on above: Performed By: #### C BC, LACTIC, LIPASE, HS TROP, HEPATIC, DDIMER, BMP #### [address] Monocytes/100 WBC (Bld) 6.9 % Normal . [facility] Comment on above: Performed By: #### C BC, LACTIC, LIPASE, HS TROP, HEPATIC, DDIMER, BMP #### [address] Neutrophils (Bld) [#/Vol] 3.9 10*3/uL Normal 1.8-7.7 [facility] Comment on above: Performed By: #### C BC, LACTIC, LIPASE, HS TROP, HEPATIC, DDIMER, BMP #### [place] [address] [place] Neutrophils/100 WBC (Bld) 58.1 % Normal . [facility] Comment on above: Performed By: #### C BC, LACTIC, LIPASE, HS TROP, HEPATIC, DDIMER, BMP #### [place] [address] [place] NRBC% 0.1 /100{WBC} Normal 0-0.5 [facility] Comment on above: Performed By: #### C BC, LACTIC, LIPASE, HS TROP, HEPATIC, DDIMER, BMP #### [place] [address] [place] Platelet mean volume (Bld) [Entitic vol] 7.0 fL Normal 6.3-10.7 [facility] Comment on above: Performed By: #### C BC, LACTIC, LIPASE, HS TROP, HEPATIC, DDIMER, BMP #### [place] [address] [place] Platelets (Bld) [#/Vol] 289 10*3/uL Normal 150-450 [facility] Comment on above: Performed By: #### C BC, LACTIC, LIPASE, HS TROP, HEPATIC, DDIMER, BMP #### [facility] [address] RBC (Bld) [#/Vol] 4.18 10*6/uL Normal 3.60-5.00 [facility] Comment on above: Performed By: #### C BC, LACTIC, LIPASE, HS TROP, HEPATIC, DDIMER, BMP #### [facility] [address] WBC (Bld) [#/Vol] 6.7 10*3/uL Normal 3.8-11.6 [facility] Comment on above: Performed By: #### C BC, LACTIC, LIPASE, HS TROP, HEPATIC, DDIMER, BMP #### [facility] [address] Creatinine [Mass/volume] in Serum or PlasmaOrdered By: Robert Jacobson on 10-29-2022 Creatinine [Mass/Vol] 0.67 mg/dL 0.60-1.20 [facility] D-Dimer High Sensitivityon 0 10-29-2022 D-Dimer High Sensitivity < 200 Normal 0-243 [facility] Comment on above: Result Comment: The reference [...] patients due to co-morbid conditions. PERFORMED BY: [place] [address] PATHOLOGIST BIT BENDER АННА AJ M.D. Performed By: #### C TREY KUHN [facility] #### [facility] [address] [place] [address] [place] Dipstick and Microscopicon 0 10-29-2022 Appearance (U) Cloudy Critically abnormal Clear [facility] Comment on above: Order Comment: Name Collection Type:: Clean-Voided Midstream Performed By: #### C UU, ADDONUAPLUS, UHCG #### [facility] [address] [place] [address] [place] Bacteria,Urine None Seen Normal None Seen [facility] Comment on above: Order Comment: Name Collection Type:: Clean-Voided Midstream Performed By: #### C UU, ADDONUAPLUS, UHCG #### [facility] [address] [place] [address] [place] Bilirubin,Urine Negative Normal Negative [facility] Comment on above: Order Comment: Name Collection Type:: Clean-Voided Midstream Performed By: #### C UU, ADDONUAPLUS, UHCG #### [address] Color (U) Yellow Normal Yellow [facility] Comment on above: Order Comment: Name Collection Type:: Clean-Voided Midstream Performed By: #### C UU, ADDONUAPLUS, UHCG #### [address] Glucose Ql (U) Normal Normal Normal [facility] Comment on above: Order Comment: Name Collection Type:: Clean-Voided Midstream Performed By: #### C UU, ADDONUAPLUS, UHCG #### [facility] [address] [place] [address] [place] Hyaline Casts,Urine 0-8 Normal 0-8 [facility] Comment on above: Order Comment: Name Collection Type:: Clean-Voided Midstream Performed By: #### C UU, ADDONUAPLUS, UHCG #### [place] [address] [place] Ketones Ql (U) Negative Normal Negative [facility] Comment on above: Order Comment: Name Collection Type:: Clean-Voided Midstream Performed By: #### C UU, ADDONUAPLUS, UHCG #### [facility] [address] [place] [address] Leukocyte esterase Test strip Ql (U) 3+ High Negative [facility] Comment on above: Order Comment: Name Collection Type:: Clean-Voided Midstream Performed By: #### C UU, ADDONUAPLUS, UHCG #### [address] Nitrite,Urine Negative Normal Negative [facility] Comment on above: Order Comment: Name Collection Type:: Clean-Voided Midstream Performed By: #### C UU, ADDONUAPLUS, UHCG #### [address] Occult Blood,Urine Negative Normal Negative [facility] Comment on above: Order Comment: Name Collection Type:: Clean-Voided Midstream Performed By: #### C UU, ADDONUAPLUS, UHCG #### [address] pH (U) 6.0 [pH] Normal 5.0-9.0 [facility] Comment on above: Order Comment: Name Collection Type:: Clean-Voided Midstream Performed By: #### C UU, ADDONUAPLUS, UHCG #### [address] Protein,Urine Trace High Negative [facility] Comment on above: Order Comment: Name Collection Type:: Clean-Voided Midstream Performed By: #### C UU, ADDONUAPLUS, UHCG #### [place] [address] [place] RBC LM.HPF (Urine sed) [#/Area] 0 /[HPF] Normal 0-4 [facility] Comment on above: Order Comment: Name Collection Type:: Clean-Voided Midstream Performed By: #### C UU, ADDONUAPLUS, UHCG #### [address] Specificy [place],Urine 1.024 Normal 1.001-1.030 [facility] Comment on above: Order Comment: Name Collection Type:: Clean-Voided Midstream Performed By: #### C UU, ADDONUAPLUS, UHCG #### [facility] [address] Squamous Epithelial Cell,Urine 5-9 High 0-2 [facility] Comment on above: Order Comment: Name Collection Type:: Clean-Voided Midstream Performed By: #### C UU, ADDONUAPLUS, UHCG #### [facility] [address] [place] [address] Urobilinogen,Urine Normal Normal Normal [facility] Comment on above: Order Comment: Name Collection Type:: Clean-Voided Midstream Performed By: #### C UU, ADDONUAPLUS, UHCG #### [facility] [address] [place] [address] WBC,Urine 10-19 High 0-4 [facility] Comment on above: Order Comment: Name Collection Type:: Clean-Voided Midstream Performed By: #### C UU, ADDONUAPLUS, UHCG #### [facility] [address] [place] [address] [place] Drug Screen,Urineon 10-30-19 23 Amphetamine Screen,Urine Negative Normal Negative [facility] Comment on above: Performed By: #### C UU, ADDONUAPLUS, UHCG #### [facility] [address] [place] [address] [place] Barbiturate Screen,Urine Negative Normal Negative [facility] Comment on above: Performed By: #### C UU, ADDONUAPLUS, UHCG #### [facility] [address] [place] [address] [place] Benzodiazepines Screen,Urine Negative Normal Negative [facility] Comment on above: Performed By: #### C UU, ADDONUAPLUS, UHCG #### [facility] [address] [place] [address] Cannabinoid Screen,Urine Negative Normal Negative [facility] Comment on above: Result Comment: Thes e are unconfirmed results and should not be used for legal purposes. Drug Cut-Off Concentration: AMPH 1000 ng/mL YENY 200 ng/mL ARELIS 200 ng/mL COCM 300 ng/mL OP 300 ng/mL PCP 25 ng/mL THC 20 ng/mL PERFORMED BY: [place] [address] PATHOLOGIST BIT BENDER АННА AJ M.D. Performed By: #### C UU, ADDONUAPLUS, UHCG #### [address] Cocaine Screen,Urine Negative Normal Negative [facility] Comment on above: Performed By: #### C UU, ADDONUAPLUS, UHCG #### [address] Opiate Screen,Urine Negative Normal Negative [facility] Comment on above: Performed By: #### C UU, ADDONUAPLUS, UHCG #### [address] Phencyclidine Screen,Urine Negative Normal Negative [facility] Comment on above: Performed By: #### C UU, ADDONUAPLUS, UHCG #### [address] ECG 12 lead ECGon 10-29-2022 ECG 12 lead ECG [facility] [place] [address] Electrocardiograph Report Signed Patient: Sea Wright MR#: [id number] 6 : 1995 Acct:[id number] Age/Sex: 27 / F ADM Date: 10/29/22 Loc: ER Room: Type: [facility] ER Attending Dr: Ordering Provider: Robert Jacobson [...] sinus arrhythmia Confirmed by Jose OLGUIN DO ([id number]) on 10/29/2022 8:59:01 PM Referred By: Electronically Signed By:Jose OLGUIN DO Transcribed By: MUS Signed By Jose Olguin DO 0 10/29/222058 Normal [facility] Eosinophils Auto (Bld) [#/Vo l]Ordered By: Robert Jacobson on 10-29-2022 Eosinophils (Bld) [#/Vol] 0.1 10*3/uL 0.0-0.45 [facility] Eosinophils/100 WBC Auto (Bl d)Ordered By: Robert Jacobson on 10-29-2022 Eosinophils/100 WBC (Bld) 0.8 % . [facility] Erythrocyte distribution wid th Auto (RBC) [Ratio]Ordered By: Robert Jacobson on 10-29-2022 Erythrocyte distribution width (RBC) [Ratio] 14.6 % 11.9-15.3 [facility] Globulin Calc (S) [Mass/Vol] Ordered By: Robert Jacobson on 10-29-2022 Globulin (S) [Mass/Vol] 2.6 g/dL [facility] Glucose [Mass/volume] in Ser um or PlasmaOrdered By: Robert Jacobson on 10-29-2022 Glucose [Mass/Vol] 82 mg/dL 74-109 [facility] Comment on above: ADA recommended refe rence rangeRandom Glucose Reference Range is dependent on time and content of last meal. Glucose of more than 200 mg/dL in a nonstressed, ambulatory subject supports the diagnosis of Diabetes Mellitus. HCG ( test) Amada hargrove Ql (U)Ordered By: PROVIDER TEMDennis on 10-29-2022 HCG ( test) Ql (U) Negative [facility] HCG,Urineon 10-29-2022 Beta HCG ( test) Ql (U) Negative Normal [facility] Comment on above: Order Comment: Name Collection Type:: Clean-Voided Midstream Result Comment: PERF ORMED BY: [facility] [address] [place] [address] PATHOLOGIST BIT BENDER АННА AJ M.D. Performed By: #### C TREY KUHN [facility] #### [facility] [address] Hematocrit Auto (Bld) [Volum e fraction]Ordered By: Robert Jacobson on 10-29-2022 Hematocrit (Bld) [Volume fraction] 35.0 % 34.0-46.4 [facility] Hemoglobin [Mass/volume] in BloodOrdered By: Robert Jacobson on 10-29-2022 Hemoglobin (Bld) [Mass/Vol] 11.7 g/dL 11.8-15.4 [facility] Hepatic Panelon 10-29-2022 Albumin [Mass/Vol] 4.5 g/dL Normal 3.5-5.7 [facility] Comment on above: Performed By: #### TREY BURKS JODI #### [facility] [address] Albumin/Globulin [Mass ratio] 1.7 {ratio} Normal [facility] Comment on above: Performed By: #### C TREY KUHN JODI #### [facility] [address] [place] [address] ALP [Catalytic activity/Vol] 36 U/L Normal 34-104 [facility] Comment on above: Performed By: #### [facility]KS [facility] #### [facility] [address] [place] [address] ALT [Catalytic activity/Vol] 10 U/L Normal 7-52 [facility] Comment on above: Performed By: #### [facility]URKS [facility] #### [facility] [address] [place] [address] [place] AST [Catalytic activity/Vol] 14 U/L Normal 13-39 [facility] Comment on above: Performed By: #### TREY BURKS JODI #### [facility] [address] [place] [address] Bilirubin [Mass/Vol] 0.3 mg/dL Normal 0.3-1.0 [facility] Comment on above: Performed By: #### TREY BURKS CG #### [facility] [address] Bilirubin,Indirect 0.2 mg/dL Normal [facility] Comment on above: Performed By: #### C UU, ADDONUAPLUS, UHCG #### [facility] [address] Bilirubin.indirect [Mass/Vol] 0.10 mg/dL Normal 0.03-0.18 [facility] Comment on above: Performed By: #### C UU, ADDONUAPLUS, CG #### [facility] [address] Globulin (S) [Mass/Vol] 2.6 g/dL Normal [facility] Comment on above: Performed By: #### C UU, ADDONUAPLUS, UHCG #### [facility] [address] Protein [Mass/Vol] 7.1 g/dL Normal 6.4-8.9 [facility] Comment on above: Performed By: #### C UU, ADDONUAPLUS, CG #### [facility] [address] [place] [address] Ketones Auto test strip (U) [Mass/Vol]Ordered By: Robert Jacobson on 10-29-2022 Ketones (U) [Mass/Vol] Negative Negative [facility] - Chemistry and C hemistry - challengeOrdered By: Robert Jacobson on 10-29-2022 GFR/1.73 sq M.predicted MDRD (S/P/Bld) [Vol rate/Area] mL/min/{1.73_m2} [facility] - UrinalysisOrder ed By: Robert Jacobson on 10-29-2022 Hyaline casts LM Ql (Urine sed) 0-8 [LPF] 0-8 [facility] Lactate [Moles/volume] in Se rum or PlasmaOrdered By: Robert Jacobson on 10-29-2022 Lactate [Moles/Vol] 0.6 mmol/L 0.5-2.2 [facility] Lactic Acidon 10-29-2022 Lactate [Moles/Vol] 0.6 mmol/L Normal 0.5-2.2 [facility] Comment on above: Result Comment: PERF ORMED BY: [place] [address] PATHOLOGIST BIT BENDER АННА AJ M.D. Performed By: #### TREY BURKS [facility] #### [address] Leukocytes [#/volume] correc lucho for nucleated erythrocytes in Blood by Automated counOrdered By: Robert Jacobson on 10-29-2022 WBC corrected for nucl RBC Auto (Bld) [#/Vol] 6.7 10*3/uL 3.8-11.6 [facility] Lipaseon 10-29-2022 Lipase [Catalytic activity/Vol] 15.0 U/L Normal 11.0-82.0 [facility] Comment on above: Result Comment: PERF ORMED BY: [place] [address] PATHOLOGIST BIT BENDER АННА AJ M.D. Performed By: #### TREY BURKS [facility] #### [address] Lipase [Enzymatic activity/v olume] in Serum or PlasmaOrdered By: Robert Jacobson on 10-29-2022 Lipase [Catalytic activity/Vol] 15.0 U/L 11.0-82.0 [facility] Lymphocytes Auto (Bld) [#/Vo l]Ordered By: Robert Jacobson on 10-29-2022 Lymphocytes (Bld) [#/Vol] 2.3 10*3/uL 1.00-4.8 [facility] Lymphocytes/100 WBC Auto (Bl d)Ordered By: Robert Jacobson on 10-29-2022 Lymphocytes/100 WBC (Bld) 33.6 % . [facility] MCH Auto (RBC) [Entitic mass ]Ordered By: Robert Jacobson on 10-29-2022 MCH (RBC) [Entitic mass] 27.9 pg 24.7-34.3 [facility] MCHC Auto (RBC) [Mass/Vol]Or dered By: Robert Jacobson on 10-29-2022 MCHC (RBC) [Mass/Vol] 33.3 g/dL 32.0-35.0 [facility] MCV Auto (RBC) [Entitic vol] Ordered By: Robert Jacobson on 10-29-2022 MCV (RBC) [Entitic vol] 83.7 fL 80-100 [facility] Monocyte distribution width [Entitic volume] in Blood by AutomatedOrdered By: Robert Jacobson on 10-29-2022 Monocyte distribution width Auto (Bld) [Entitic vol] 18.05 % 0.00-20.00 [facility] Monocytes Auto (Bld) [#/Vol] Ordered By: Robert Jacobson on 10-29-2022 Monocytes (Bld) [#/Vol] 0.5 10*3/uL 0.0-0.8 [facility] Monocytes/100 WBC Auto (Bld) Ordered By: Robert Jacobson on 10-29-2022 Monocytes/100 WBC (Bld) 6.9 % . [facility] Neutrophils Auto (Bld) [#/Vo l]Ordered By: Robert Jacobson on 10-29-2022 Neutrophils (Bld) [#/Vol] 3.9 10*3/uL 1.8-7.7 [facility] Neutrophils/100 WBC Auto (Bl d)Ordered By: Robert Jacobson on 10-29-2022 Neutrophils/100 WBC (Bld) 58.1 % . [facility] Nitrite Test strip Ql (U)Ord ered By: Robert Jacobson on 10-29-2022 Nitrite Ql (U) Negative Negative [facility] No Panel InformationOrdered By: Robert Jacobson on 10-29-2022 D-Dimer Quantitative (PE/DVT) < 200 ng/mL 0-243 [facility] Comment on above: The reference range for [...] toco-morbid conditions. Pharmacy Creatinine Clearance (Chem 92.20 [facility] Nucleated erythrocytes [Pres ence] in Blood by Automated countOrdered By: Robert Jacobson on 10-29-2022 Nucleated RBC Auto Ql (Bld) 0.1 /100{WBC} 0-0.5 [facility] Opiates [Presence] in Urine by Screen methodOrdered By: Robert Jacobson on 10-29-2022 Opiates Screen Ql (U) Negative Negative [facility] Phencyclidine Screen Ql (U)O rdered By: Robert Jacobson on 10-29-2022 Phencyclidine Ql (U) Negative Negative [facility] Platelet mean volume Auto (B ld) [Entitic vol]Ordered By: Robert Jacobson on 10-29-2022 Platelet mean volume (Bld) [Entitic vol] 7.0 fL 6.3-10.7 [facility] Platelets Auto (Bld) [#/Vol] Ordered By: Robert Jacobson on 10-29-2022 Platelets (Bld) [#/Vol] 289 10*3/uL 150-450 [facility] Potassium [Moles/volume] in Serum or PlasmaOrdered By: Robert Jacobson 10-29-2022 Potassium [Moles/Vol] 3.6 mmol/L 3.5-5.1 [facility] Protein Auto test strip (U) [Mass/Vol]Ordered By: Robert Jacobson on 10-29-2022 Protein (U) [Mass/Vol] Trace mg/dL Negative [facility] Protein [Mass/volume] in Ser um or PlasmaOrdered By: Robert Jacobson on 10-29-2022 Protein [Mass/Vol] 7.1 g/dL 6.4-8.9 [facility] RBC Auto (Bld) [#/Vol]Ordere d By: Robert Jacobson on 10-29-2022 RBC (Bld) [#/Vol] 4.18 10*6/uL 3.60-5.00 [facility] Serum or plasma albumin/glob ulin mass ratioOrdered By: Robert Jacobson on 10-29-2022 Albumin/Globulin [Mass ratio] 1.7 {ratio} [facility] Serum or plasma anion gap de terminationOrdered By: Robert Jacobson on 10-29-2022 Anion gap [Moles/Vol] 11.6 mmol/L 6.0-15.0 [facility] Serum or plasma non-glucuron idated bilirubin measurement (mass/volume)Ordered By: Robert Jacobson on 10-29-2022 Bilirubin.indirect [Mass/Vol] 0.2 mg/dL [facility] Sodium [Moles/volume] in Ser um or PlasmaOrdered By: Robert Jacobson on 10-29-2022 Sodium [Moles/Vol] 137 mmol/L 136-145 [facility] Specific gravity Auto test s trip (U) [Rel density]Ordered By: Robert Jacobson on 10-29-2022 Specific gravity (U) [Rel density] 1.024 1.001-1.030 [facility] Squamous epithelial cells de tection in urine sediment by light microscopyOrdered By: Robert Jacobson on 10-29-2022 Epithelial cells.squamous LM Ql (Urine sed) 5-9 [HPF] 0-2 [facility] Troponin I High Sensitivityo n 10-29-2022 Troponin I High Sensitivity < 2.3 Normal 0.0-15.0 [facility] Comment on above: Result Comment: PERF ORMED BY: [place] [address] PATHOLOGIST BIT BENDER АННА AJ M.D. Performed By: #### C UU, TREY [facility] #### [facility] [address] Troponin I.cardiac [Mass/vol ume] in Serum or Plasma by Detection limit <= 0.01 ng/Ordered By: Robert Jacobson on 10-29-2022 Troponin I.cardiac DL <= 0.01 ng/mL [Mass/Vol] < 2.3 pg/mL 0.0-15.0 [facility] US gall bladderon 10-29-2022 US gall bladder [facility] [address] [place] [address] Ultrasound Report Signed Patient: Sea Wright MR#: [id number] 6 : 1995 Acct:[id number] Age/Sex: 27 / F ADM Date: 10/29/22 Loc: ER Room: Type: [facility] ER Attending Dr: Ordering Provider: Robert Jacobson [...] Tony Alejandra M.D.10/29/2022 8:11 PM Dictation Location: [place] [address] Tech: Aida Painter Transcribed By: [facility] 10/29/222010 Dictated By: Tony Alejandra DO 10/29/222009 Signed By: 10/29/222010 [facility] Urea nitrogen [Mass/volume] in Serum or PlasmaOrdered By: Robert Jacobson on 10-29-2022 Urea nitrogen [Mass/Vol] 12 mg/dL 7 [facility] Urine Cultureon 10-29-2022 Bacteria identified Cx Nom (U) 75,000 colonies/ml mixed bacterial skin contaminants 2 Days PERFORMED BY: [place] [address] PATHOLOGIST BIT BENDER АННА AJ M.D. [facility] Comment on above: Performed By: #### C TREY KUHN [facility] #### [address] Urine bacteria detection by automated methodOrdered By: Robert Jacobson on 10-29-2022 Bacteria Auto Ql (U) None seen None Seen [facility] Urine clarity by refractomet ry automatedOrdered By: Robert Jacobson on 10-29-2022 Clarity Refractometry automated (U) Cloudy Clear [facility] Urine glucose measurement by automated test strip (mass/volume)Ordered By: Robert Jacobson on 10-29-2022 Glucose Auto test strip (U) [Mass/Vol] Normal mg/dL Normal [facility] Urine hemoglobin detection b y automated test stripOrdered By: Robert Jacobson on 10-29-2022 Hemoglobin Auto test strip Ql (U) Negative Negative [facility] Urine leukocyte esterase det ection by automated test stripOrdered By: Robert Jacobson on 10-29-2022 Leukocyte esterase Auto test strip Ql (U) 3+ Negative [facility] Urobilinogen Auto test strip (U) [Mass/Vol]Ordered By: Robert Jacobson on 10-29-2022 Urobilinogen (U) [Mass/Vol] Normal mg/dL Normal [facility] WBC Auto (Bld) [#/Vol]Ordere d By: Robert Jacobson on 10-29-2022 WBC (Bld) [#/Vol] 6.7 10*3/uL 3.8-11.6 [facility] pH Auto test strip (U)Ordere d By: Robert Jacobson on 10-29-2022 pH (U) 6.0 [pH] 5.0-9.0 [facility] CULTURE URINEon 10-24-2022 CULTURE URINE Isolate 1 [...] F Trimethoprim/Sulfamethoxazo le <=20 S F Normal [facility] Comment on above: Performed By: #### G LARON #### [facility] [address] ABD/PELV W CONon [...] REBA DELEON Date: 2022-10-22 22:28 Normal [facility] CBC AUTO DIFFon 10-22-2022 BASO # 0.0 103/ul Normal 0.0-0.1 [facility] Comment on above: Performed By: #### C BC #### [facility] [address] [address] [address] Adriana Chawla Basophils/100 WBC (Bld) 0.5 % Normal 0.2-2.0 [facility] Comment on above: Performed By: #### C BC #### [facility] [address] [place] [address] Dr. Adriana Chawla EO # 0.1 103/ul Normal 0.0-0.7 [facility] Comment on above: Performed By: #### C BC #### [facility] [address] [place] [address] Dr. Adriana Chawla Eosinophils/100 WBC (Bld) 1.1 % Normal 0.9-7.0 [facility] Comment on above: Performed By: #### C BC #### [facility] [address] [place] [address] Dr. Adriana Chawla Erythrocyte distribution width (RBC) [Ratio] 14.0 % Normal 11.0-15.0 [facility] Comment on above: Performed By: #### C BC #### [facility] [address] [place] [address] Dr. Adriana Chawla Hematocrit (Bld) [Volume fraction] 36.4 % Normal 36.0-48.0 [facility] Comment on above: Performed By: #### C BC #### [facility] [address] [place] [address] Dr. Adriana Chawla Hemoglobin (Bld) [Mass/Vol] 12.0 g/dL Normal 12.0-16.0 [facility] Comment on above: Performed By: #### C BC #### [facility] [address] [place] [address] Dr. Adriana Chawla IG # 0.01 10e3/ul Normal 0.00-0.03 [facility] Comment on above: Performed By: #### C BC #### [facility] [address] [place] [address] Dr. Adriana Chawla IG % 0.2 % Normal 0.0-0.5 [facility] Comment on above: Performed By: #### C BC #### [facility] [address] [place] [address] Dr. Adriana Chawla LYMPH # 1.7 103/ul Normal 1.2-3.8 [facility] Comment on above: Performed By: #### C BC #### [facility] [address] [place] [address] Dr. Adriana Chawla Lymphocytes/100 WBC (Bld) 25.3 % Normal 20.5-60.0 [facility] Comment on above: Performed By: #### C BC #### [facility] [address] [place] [address] Dr. Adriana Chawla MANUAL DIFF REQ NO Normal [facility] Comment on above: Performed By: #### C BC #### [facility] [address] [place] [address] Dr. Adriana Chawla MCH (RBC) [Entitic mass] 28.0 pg Normal 26.7-34.0 [facility] Comment on above: Performed By: #### C BC #### [facility] [address] [place] [address] Dr. Adriana Chawla MCHC (RBC) [Mass/Vol] 33.0 g/dL Normal 29.9-35.2 [facility] Comment on above: Performed By: #### C BC #### [facility] [address] [place] [address] Dr. Adriana Chawla MCV (RBC) [Entitic vol] 84.8 fL Normal 81.0-99.0 [facility] Comment on above: Performed By: #### C BC #### [facility] [address] [place] [address] Dr. Adriana Chawla MONO # 0.6 103/ul Normal 0.3-0.8 [facility] Comment on above: Performed By: #### C BC #### [facility] [address] [place] [address] Dr. Adriana Chawla Monocytes/100 WBC (Bld) 8.8 % Normal 1.7-12.0 [facility] Comment on above: Performed By: #### C BC #### [facility] [address] [place] [address] Dr. Adriana Chawla NEUT # 4.2 103/ul Normal 1.4-6.5 [facility] Comment on above: Performed By: #### C BC #### [facility] [address] [place] [address] Dr. Adriana Chawla Neutrophils/100 WBC (Bld) 64.1 % Normal 43.0-75.0 [facility] Comment on above: Performed By: #### C BC #### [facility] [address] [place] [address] Dr. Adriana Chawla Platelet mean volume (Bld) [Entitic vol] 8.7 fL Critically low 9.5-13.5 [facility] Comment on above: Performed By: #### C BC #### [facility] [address] [place] [address] Dr. Adriana Chawla PLT 277 103/ul Normal 150-450 [facility] Comment on above: Performed By: #### C BC #### [facility] [address] [place] [address] Dr. Adriana Chawla RBC 4.29 106/ul Normal 4.20-5.40 [facility] Comment on above: Performed By: #### C BC #### [facility] [address] [place] [address] Dr. Adriana Chawla WBC 6.6 103/ul Normal 4.0-11.0 [facility] Comment on above: Performed By: #### C BC #### [facility] [address] [place] [address] Dr. Adriana Chawla BASO # 0.0 103/ul Normal 0.0-0.1 [facility] Comment on above: Performed By: #### V AGINT #### [facility] [address] [place] [address] Dr. Adriana Chawla Basophils/100 WBC (Bld) 0.5 % Normal 0.2-2.0 [facility] Comment on above: Performed By: #### V AGINT #### [facility] [address] [place] [address] Dr. Adriana Chawla EO # 0.1 103/ul Normal 0.0-0.7 [facility] Comment on above: Performed By: #### V AGINT #### [facility] [address] [place] [address] Dr. Adriana Chawla Eosinophils/100 WBC (Bld) 1.4 % Normal 0.9-7.0 [facility] Comment on above: Performed By: #### V AGINT #### [facility] [address] [place] [address] Dr. Adriana Chawla Erythrocyte distribution width (RBC) [Ratio] 13.9 % Normal 11.0-15.0 [facility] Comment on above: Performed By: #### V AGINT #### [facility] [address] [place] [address] Dr. Adriana Chawla Hematocrit (Bld) [Volume fraction] 37.1 % Normal 36.0-48.0 [facility] Comment on above: Performed By: #### V AGINT #### [facility] [address] [place] [address] Dr. Adriana Chawla Hemoglobin (Bld) [Mass/Vol] 12.2 g/dL Normal 12.0-16.0 [facility] Comment on above: Performed By: #### V AGINT #### [facility] [address] [place] [address] Dr. Adriana Chawla IG # 0.02 10e3/ul Normal 0.00-0.03 [facility] Comment on above: Performed By: #### V AGINT #### [facility] [address] [place] [address] Dr. Adriana Chawla IG % 0.3 % Normal 0.0-0.5 [facility] Comment on above: Performed By: #### V AGINT #### [facility] [address] [place] [address] Dr. Adriana Chawla LYMPH # 2.6 103/ul Normal 1.2-3.8 [facility] Comment on above: Performed By: #### V AGINT #### [facility] [address] [place] [address] Dr. Adriana Chawla Lymphocytes/100 WBC (Bld) 33.9 % Normal 20.5-60.0 [facility] Comment on above: Performed By: #### V AGINT #### [facility] [address] [place] [address] Dr. Adriana Chawla MANUAL DIFF REQ NO Normal [facility] Comment on above: Performed By: #### V AGINT #### [facility] [address] [place] [address] Dr. Adriana Chawla MCH (RBC) [Entitic mass] 27.9 pg Normal 26.7-34.0 [facility] Comment on above: Performed By: #### V AGINT #### [facility] [address] [place] [address] Dr. Adriana Chawla MCHC (RBC) [Mass/Vol] 32.9 g/dL Normal 29.9-35.2 [facility] Comment on above: Performed By: #### V AGINT #### [facility] [address] [place] [address] Dr. Adriana Chawla MCV (RBC) [Entitic vol] 84.9 fL Normal 81.0-99.0 [facility] Comment on above: Performed By: #### V AGINT #### [facility] [address] [place] [address] Dr. Adriana Chawla MONO # 0.7 103/ul Normal 0.3-0.8 [facility] Comment on above: Performed By: #### V AGINT #### [facility] [address] [place] [address] Dr. Adriana Chawla Monocytes/100 WBC (Bld) 8.9 % Normal 1.7-12.0 [facility] Comment on above: Performed By: #### V AGINT #### [facility] [address] [place] [address] Dr. Adriana Chawla NEUT # 4.3 103/ul Normal 1.4-6.5 [facility] Comment on above: Performed By: #### V AGINT #### [facility] [address] [address] [address] Adriana Chawla Neutrophils/100 WBC (Bld) 55.0 % Normal 43.0-75.0 [facility] Comment on above: Performed By: #### V AGINT #### [facility] [address] [address] [address] Adriana Chawla Platelet mean volume (Bld) [Entitic vol] 9.1 fL Critically low 9.5-13.5 [facility] Comment on above: Performed By: #### V AGINT #### [facility] [address] [address] [address] Adriana Chawla PLT 310 103/ul Normal 150-450 [facility] Comment on above: Performed By: #### V AGINT #### [facility] [address] [place] [address] Dr. Adriana Chawla RBC 4.37 106/ul Normal 4.20-5.40 [facility] Comment on above: Performed By: #### V AGINT #### [facility] [address] [address] [address] Adriana Chawla WBC 7.7 103/ul Normal 4.0-11.0 [facility] Comment on above: Performed By: #### V AGINT #### [facility] [address] [place] [address] ABD/PELV W CONon [...] RUPA WEIR Date: 2022-10-22 02:57 Normal [facility]on SARS-CoV-2 (COVID-19) RNA OLIMPIA+probe Ql (Unsp spec) Not detected Normal NOT DETECTED [facility] Comment on above: Result Comment: When [...] for this test is supported by the [place] of Health and Human Service's declaration that [...] used). Performed By: #### C VDTB #### [facility] [address] [place] [address] Dr. Adriana Chawla ER URINE PROFILEon 3 Bilirubin Ql (U) Negative Normal NEGATIVE [facility] Comment on above: Performed By: #### E RUR, UMICRO #### [facility] [address] [place] [address] Dr. Adriana Chawla Clarity (U) CLEAR Normal CLEAR [facility] Comment on above: Performed By: #### E RUR, UMICRO #### [facility] [address] [place] [address] Dr. Adriana Chawla Color (U) YELLOW Normal YELLOW [facility] Comment on above: Performed By: #### E RUR, UMICRO #### [facility] [address] [place] [address] Dr. Adriana MAZARIEGOS A micrscopic examina tion will be performed if indicated. Normal [facility] Comment on above: Performed By: #### E RUR, UMICRO #### [facility] [address] [place] [address] Dr. Adriana Chawla Glucose Ql (U) Negative Normal NEGATIVE [facility] Comment on above: Performed By: #### E RUR, UMICRO #### [facility] [address] [place] [address] Dr. Adriana Chawla Hemoglobin Ql (U) MODERATE Abnormal NEGATIVE [facility] Comment on above: Performed By: #### E RUR, UMICRO #### [facility] [address] [place] [address] Dr. Adriana Chawla Ketones Ql (U) TRACE Abnormal NEGATIVE [facility] Comment on above: Performed By: #### E RUR, UMICRO #### [facility] [address] [place] [address] Dr. Adriana Chawla LEUKOCYTES TRACE Abnormal NEGATIVE [facility] Comment on above: Performed By: #### TOYA CARVAJALRO #### [facility] [address] [place] [address] Dr. Adriana Chawla Nitrite Ql (U) Negative Normal NEGATIVE [facility] Comment on above: Performed By: #### TOYA CARVAJALRO #### [facility] [address] [place] [address] Dr. Adriana Chawla pH (U) 6.0 [pH] Normal 5-9 [facility] Comment on above: Performed By: #### TOYA CARVAJALRO #### [facility] [address] [place] [address] Dr. Adriana Chawla SPEC GRAVITY 1.020 Normal 1.005-<=1.0 25 [facility] Comment on above: Performed By: #### TOYA CARVAJALRO #### [facility] [address] [place] [address] Dr. Adriana Chawla UA PROTEIN Negative Normal NEGATIVE/ TRACE [facility] Comment on above: Performed By: #### TOYA CARVAJALRO #### [facility] [address] [place] [address] Dr. Adriana Chawla UR MICRO IND INDICATED Normal [facility] Comment on above: Performed By: #### TOYA CARVAJALRO #### [facility] [address] [place] [address] Dr. Adriana Chawla Urobilinogen Qn (U) 0.2 {Sushila'U}/dL Normal 0.2 - 1. 0 [facility] Comment on above: Performed By: #### TOYA CARVAJALRO #### [facility] [address] [place] [address] Dr. Adriana Chawla Bilirubin Ql (U) Negative Normal NEGATIVE [facility] Comment on above: Performed By: #### U MICRO, ERUR #### [facility] [address] [place] [address] Dr. Adriana Chawla Clarity (U) CLEAR Normal CLEAR [facility] Comment on above: Performed By: #### U MICRO, ERUR #### [facility] [address] [address] [address] Adriana Chawla Color (U) LT. YELLOW Normal YELLOW [facility] Comment on above: Performed By: #### U MICRO, ERUR #### [facility] [address] [address] [address] Adriana Chawla ERUAHD A micrscopic examina tion will be performed if indicated. Normal [facility] Comment on above: Performed By: #### U MICRO, ERUR #### [facility] [address] [place] [address] Dr. Adriana Chawla Glucose Ql (U) Negative Normal NEGATIVE [facility] Comment on above: Performed By: #### U MICRO, ERUR #### [facility] [address] [place] [address] Dr. Adriana Chawla Hemoglobin Ql (U) LARGE Abnormal NEGATIVE [facility] Comment on above: Performed By: #### U MICRO, ERUR #### [facility] [address] [place] [address] Dr. Adriana Chawla Ketones Ql (U) Negative Normal NEGATIVE [facility] Comment on above: Performed By: #### U MICRO, ERUR #### [facility] [address] [place] [address] Dr. Adriana Chawla LEUKOCYTES SMALL Abnormal NEGATIVE [facility] Comment on above: Performed By: #### U MICRO, ERUR #### [facility] [address] [address] [address] Adriana Chawla Nitrite Ql (U) Negative Normal NEGATIVE [facility] Comment on above: Performed By: #### U MICRO, ERUR #### [facility] [address] [place] [address] Dr. Adriana Chawla pH (U) 7.0 [pH] Normal 5-9 [facility] Comment on above: Performed By: #### U MICRO, ERUR #### [facility] [address] [place] [address] Dr. Adriana Chawla SPEC GRAVITY 1.010 Normal 1.005-<=1.0 25 [facility] Comment on above: Performed By: #### U MICRO, ERUR #### [facility] [address] [place] [address] Dr. Adriana Chawla UA PROTEIN Negative Normal NEGATIVE/ TRACE [facility] Comment on above: Performed By: #### U MICRO, ERUR #### [facility] [address] [place] [address] Dr. Adriana Chawla UR MICRO IND INDICATED Normal [facility] Comment on above: Performed By: #### U MICRO, ERUR #### [facility] [address] [place] [address] Dr. Adriana Chawla Urobilinogen Qn (U) 0.2 {Sushila'U}/dL Normal 0.2 - 1. 0 [facility] Comment on above: Performed By: #### U MICRO, ERUR #### [facility] [address] [place] [address] Dr. Adriana Chawla LACTATE/LACTIC ACIDon 2022 Lactate [Moles/Vol] 0.9 mmol/L Normal 0.4-2.0 [facility] Comment on above: Performed By: #### V AGINT #### [facility] [address] [place] [address] Dr. Adriana Chawla PREG HCG QUALon 10-22-2022 , QUAL Negative Normal NEGATIVE [facility] Comment on above: Performed By: #### P REG #### [facility] [address] [place] [address] Dr. Adriana Chawla PROF 14(COMP METB)on 023 Albumin [Mass/Vol] 3.9 g/dL Normal 3.4-5.0 [facility] Comment on above: Performed By: #### V AGINT #### [facility] [address] [place] [address] Dr. Adriana Chawla Albumin/Globulin [Mass ratio] 1.3 {ratio} Normal [facility] Comment on above: Performed By: #### V AGINT #### [facility] [address] [place] [address] Dr. Adriana Chawla ALP [Catalytic activity/Vol] 46 U/L Normal 46-116 [facility] Comment on above: Performed By: #### V AGINT #### [facility] [address] [place] [address] Dr. Adriana Chawla ALT [Catalytic activity/Vol] 18 U/L Normal 14-59 [facility] Comment on above: Performed By: #### V AGINT #### [facility] [address] [place] [address] Dr. Adriana Chawla Anion gap [Moles/Vol] 9.1 mmol/L Normal [facility] Comment on above: Performed By: #### V AGINT #### [facility] [address] [place] [address] Dr. Adriana Chawla AST [Catalytic activity/Vol] 22 U/L Normal 15-37 [facility] Comment on above: Performed By: #### V AGINT #### [facility] [address] [place] [address] Dr. Adriana Chawla Bilirubin [Mass/Vol] 0.3 mg/dL Normal 0.2-1.0 [facility] Comment on above: Performed By: #### V AGINT #### [facility] [address] [place] [address] Dr. Adriana Chawla Calcium [Mass/Vol] 8.6 mg/dL Normal 8.5-10.1 [facility] Comment on above: Performed By: #### V AGINT #### [facility] [address] [place] [address] Dr. Adriana Chawla Chloride [Moles/Vol] 106 mmol/L Normal 98-107 [facility] Comment on above: Performed By: #### V AGINT #### [facility] [address] [place] [address] Dr. Adriana Chawla CO2 [Moles/Vol] 25.4 mmol/L Normal 21.0-32.0 [facility] Comment on above: Performed By: #### V AGINT #### [facility] [address] [place] [address] Dr. Adriana Chawla Creatinine [Mass/Vol] 0.67 mg/dL Normal 0.55-1.02 [facility] Comment on above: Performed By: #### V AGINT #### [facility] [address] [address] [address] Adriana Chawla EGFR-AF NIGERIAN >60 Normal >=60 [facility] Comment on above: Performed By: #### V AGINT #### [facility] [address] [address] [address] Adriana Chawla EGFR-NON AF NIGERIAN >60 Normal >=60 [facility] Comment on above: Performed By: #### V AGINT #### [facility] [address] [address] [address] Adriana Chawla Globulin (S) [Mass/Vol] 3.0 g/dL Normal [facility] Comment on above: Performed By: #### V AGINT #### [facility] [address] [place] [address] Dr. Adriana Chawla Glucose [Mass/Vol] 96 mg/dL Normal 74-106 [facility] Comment on above: Performed By: #### V AGINT #### [facility] [address] [place] [address] Dr. Adriana Chawla Potassium [Moles/Vol] 3.5 mmol/L Normal 3.5-5.1 [facility] Comment on above: Performed By: #### V AGINT #### [facility] [address] [place] [address] Dr. Adriana Chawla Protein [Mass/Vol] 6.9 g/dL Normal 6.4-8.2 [facility] Comment on above: Performed By: #### V AGINT #### [facility] [address] [address] [address] Adriana Chawla Sodium [Moles/Vol] 137 mmol/L Normal 136-145 [facility] Comment on above: Performed By: #### V AGINT #### [facility] [address] [place] [address] Dr. Adriana Chawla Urea nitrogen [Mass/Vol] 13.0 mg/dL Normal 7.0-18.0 [facility] Comment on above: Performed By: #### V AGINT #### [facility] [address] [address] [address] Adriana Chawla Urea nitrogen/Creatinine [Mass ratio] 19.4 mg/mg Normal [facility] Comment on above: Performed By: #### V AGINT #### [facility] [address] [address] [address] Adriana Chawla Albumin [Mass/Vol] 4.2 g/dL Normal 3.4-5.0 [facility] Comment on above: Performed By: #### G IPANEL #### [facility] [address] [address] [address] Adriana Chawla Albumin/Globulin [Mass ratio] 1.3 {ratio} Normal [facility] Comment on above: Performed By: #### G IPANEL #### [facility] [address] [place] [address] Dr. Adriana Chawla ALP [Catalytic activity/Vol] 59 U/L Normal 46-116 [facility] Comment on above: Performed By: #### G IPANEL #### [facility] [address] [place] [address] Dr. Adriana Chawla ALT [Catalytic activity/Vol] 18 U/L Normal 14-59 [facility] Comment on above: Performed By: #### G IPANEL #### [facility] [address] [place] [address] Dr. Adriana Chawla Anion gap [Moles/Vol] 8.8 mmol/L Normal [facility] Comment on above: Performed By: #### G IPANEL #### [facility] [address] [address] [address] Adriana Chawla AST [Catalytic activity/Vol] 17 U/L Normal 15-37 [facility] Comment on above: Performed By: #### G IPANEL #### [facility] [address] [place] [address] Dr. Adriana Chawla Bilirubin [Mass/Vol] 0.2 mg/dL Normal 0.2-1.0 [facility] Comment on above: Performed By: #### G IPANEL #### [facility] [address] [address] [address] Adrinaa Chawla Calcium [Mass/Vol] 8.8 mg/dL Normal 8.5-10.1 [facility] Comment on above: Performed By: #### G IPANEL #### [facility] [address] [address] [address] Adriana Chawla Chloride [Moles/Vol] 103 mmol/L Normal 98-107 [facility] Comment on above: Performed By: #### G IPANEL #### [facility] [address] [address] [address] Adriana Chawla CO2 [Moles/Vol] 27.6 mmol/L Normal 21.0-32.0 [facility] Comment on above: Performed By: #### G IPANEL #### [facility] [address] [place] [address] Dr. Adriana Chawla Creatinine [Mass/Vol] 0.62 mg/dL Normal 0.55-1.02 [facility] Comment on above: Performed By: #### G IPANEL #### [facility] [address] [place] [address] Dr. Adriana Chawla EGFR-AF NIGERIAN >60 Normal >=60 [facility] Comment on above: Performed By: #### G IPANEL #### [facility] [address] [place] [address] Dr. Adriana Chawla EGFR-NON AF NIGERIAN >60 Normal >=60 [facility] Comment on above: Performed By: #### G IPANEL #### [facility] [address] [place] [address] Dr. Adriana Chawla Globulin (S) [Mass/Vol] 3.2 g/dL Normal [facility] Comment on above: Performed By: #### G IPANEL #### [facility] [address] [place] [address] Dr. Adriana Chawla Glucose [Mass/Vol] 103 mg/dL Normal 74-106 [facility] Comment on above: Performed By: #### G IPANEL #### [facility] [address] [place] [address] Dr. Adriana Chawla Potassium [Moles/Vol] 3.4 mmol/L Critically low 3.5-5.1 [facility] Comment on above: Performed By: #### G IPANEL #### [facility] [address] [address] [address] Adriana Chawla Protein [Mass/Vol] 7.4 g/dL Normal 6.4-8.2 [facility] Comment on above: Performed By: #### G IPANEL #### [facility] [address] [address] [address] Adriana Chawla Sodium [Moles/Vol] 136 mmol/L Normal 136-145 [facility] Comment on above: Performed By: #### G IPANEL #### [facility] [address] [place] [address] Dr. Adriana Chawla Urea nitrogen [Mass/Vol] 12.0 mg/dL Normal 7.0-18.0 [facility] Comment on above: Performed By: #### G IPANEL #### [facility] [address] [place] [address] Dr. Adriana Chawla Urea nitrogen/Creatinine [Mass ratio] 19.4 mg/mg Normal [facility] Comment on above: Performed By: #### G IPANEL #### [facility] [address] [place] [address] Dr. Adriana Chawla PROTIMEon 10-22-2022 INR Coag (PPP) [Relative time] 0.99 {INR} Normal [facility] Comment on above: Performed By: #### G IPANEL #### [facility] [address] [place] [address] Dr. Adriana Chawla INR GUIDELINES SEE BELOW Normal [facility] Comment on above: Result Comment: REGGIE RED INR: 2.0 - 3.0 CONDITIONS NOT LISTED BELOW 2.5 - 3.5 FOR PROSTHETIC HEART VALVE REPLACEMENT 2.5 - 3.5 RECURRENT THROMBOSIS Performed By: #### G IPANEL #### [facility] [address] [place] [address] Dr. Adriana Chawla PT Coag (PPP) [Time] 10.5 s Normal 9.0-11.6 [facility] Comment on above: Performed By: #### G IPANEL #### [facility] [address] [place] [address] Dr. Adriana Chawla PTTon 10-22-2022 aPTT Coag (Bld) [Time] 27.9 s Normal 22.3-36.2 Th [facility] Comment on above: Performed By: #### G IPANEL #### [facility] [address] [place] [address] Dr. Adriana Chawla URINE MICROSCOPIC ONLYon BACTERIA MODERATE Abnormal NONE SEEN [facility] Comment on above: Performed By: #### E RUR UMICRO #### [facility] [address] [place] [address] Dr. Adriana Chawla Bacteria identified Cx Nom (U) INDICATED Normal [facility] Comment on above: Performed By: #### E RUR, UMICRO #### [facility] [address] [place] [address] Dr. Adriana Chawla CAST NONE SEEN Normal NONE SEEN [facility] Comment on above: Performed By: #### E RUR, UMICRO #### [facility] [address] [place] [address] Dr. Adriana Chawla Crystals LM Nom (Urine sed) NONE SEEN Normal NONE SEEN [facility] Comment on above: Performed By: #### E RUR, UMICRO #### [facility] [address] [place] [address] Dr. Adriana Chawla Epithelial cells LM Ql (Urine sed) MODERATE Abnormal NONE SEEN /RARE [facility] Comment on above: Performed By: #### E RUR, UMICRO #### [facility] [address] [place] [address] Dr. Adriana Chawla MUCOUS LARGE Abnormal NONE SEEN [facility] Comment on above: Performed By: #### E RUR, UMICRO #### [facility] [address] [place] [address] Dr. Adriana Chawla RBC 2-5 Abnormal 0-2 [facility] Comment on above: Performed By: #### E RUR, UMICRO #### [facility] [address] [address] [address] Adriana Chawla WBC 10-20 Abnormal NONE SEEN [facility] Comment on above: Performed By: #### E RUR UMICRO #### [facility] [address] [place] [address] Dr. Adriana Chawla BACTERIA TRACE Abnormal NONE SEEN [facility] Comment on above: Performed By: #### U MICRO, ERUR #### [facility] [address] [address] [address] Adriana Chawla Bacteria identified Cx Nom (U) INDICATED Normal [facility] Comment on above: Performed By: #### U MICRO, ERUR #### [facility] [address] [place] [address] Dr. Adriana Chawla CAST NONE SEEN Normal NONE SEEN [facility] Comment on above: Performed By: #### U MICRO, ERUR #### [facility] [address] [place] [address] Dr. Adriana Chawla Crystals LM Nom (Urine sed) NONE SEEN Normal NONE SEEN [facility] Comment on above: Performed By: #### U MICRO, ERUR #### [facility] [address] [place] [address] Dr. Adriana Chawla Epithelial cells LM Ql (Urine sed) FEW Abnormal NONE SEEN /RARE [facility] Comment on above: Performed By: #### U MICRO, ERUR #### [facility] [address] [place] [address] Dr. Adriana Chawla MUCOUS NONE SEEN Normal NONE SEEN [facility] Comment on above: Performed By: #### U MICRO, ERUR #### [facility] [address] [place] [address] Dr. Adriana Chawla RBC 2-5 Abnormal 0-2 [facility] Comment on above: Performed By: #### U MICRO, ERUR #### [facility] [address] [place] [address] Dr. Adriana Chawla WBC 2-5 Abnormal NONE SEEN [facility] Comment on above: Performed By: #### U MICRO, ERUR #### [facility] [address] [place] [address] Dr. Adriana Chawla CBC AUTO DIFFon 08-13-2022 BASO # 0.0 103/ul Normal 0.0-0.1 [facility] Comment on above: Performed By: #### C BC #### [facility] [address] [place] [address] Dr. Adriana Chawla Basophils/100 WBC (Bld) 0.1 % Critically low 0.2-2.0 [facility] Comment on above: Performed By: #### C BC #### [facility] [address] [place] [address] Dr. Adriana Chawla EO # 0.0 103/ul Normal 0.0-0.7 [facility] Comment on above: Performed By: #### C BC #### [facility] [address] [place] [address] Dr. Adriana Chawla Eosinophils/100 WBC (Bld) 0.3 % Critically low 0.9-7.0 [facility] Comment on above: Performed By: #### C BC #### [facility] [address] [place] [address] Dr. Adriana Chawla Erythrocyte distribution width (RBC) [Ratio] 12.8 % Normal 11.0-15.0 [facility] Comment on above: Performed By: #### C BC #### [facility] [address] [place] [address] Dr. Adriana Chawla Hematocrit (Bld) [Volume fraction] 37.9 % Normal 36.0-48.0 [facility] Comment on above: Performed By: #### C BC #### [facility] [address] [place] [address] Dr. Adriana Chawla Hemoglobin (Bld) [Mass/Vol] 12.5 g/dL Normal 12.0-16.0 [facility] Comment on above: Performed By: #### C BC #### [facility] [address] [place] [address] Dr. Adriana Chawla IG # 0.02 10e3/ul Normal 0.00-0.03 [facility] Comment on above: Performed By: #### C BC #### [facility] [address] [place] [address] Dr. Adriana Chawla IG % 0.3 % Normal 0.0-0.5 [facility] Comment on above: Performed By: #### C BC #### [facility] [address] [place] [address] Dr. Adriana Chawla LYMPH # 0.3 103/ul Critically low 1.2-3.8 [facility] Comment on above: Performed By: #### C BC #### [facility] [address] [place] [address] Dr. Adriana Chawla Lymphocytes/100 WBC (Bld) 3.9 % Critically low 20.5-60.0 [facility] Comment on above: Performed By: #### C BC #### [facility] [address] [place] [address] Dr. Adriana Chawla MANUAL DIFF REQ NO Normal [facility] Comment on above: Performed By: #### C BC #### [facility] [address] [place] [address] Dr. Adriana Chawla MCH (RBC) [Entitic mass] 27.8 pg Normal 26.7-34.0 [facility] Comment on above: Performed By: #### C BC #### [facility] [address] [place] [address] Dr. Adriana Chawla MCHC (RBC) [Mass/Vol] 33.0 g/dL Normal 29.9-35.2 [facility] Comment on above: Performed By: #### C BC #### [facility] [address] [place] [address] Dr. Adriana Chawla MCV (RBC) [Entitic vol] 84.2 fL Normal 81.0-99.0 [facility] Comment on above: Performed By: #### C BC #### [facility] [address] [place] [address] Dr. Adriana Chawla MONO # 0.3 103/ul Normal 0.3-0.8 [facility] Comment on above: Performed By: #### C BC #### [facility] [address] [place] [address] Dr. Adriana Chawla Monocytes/100 WBC (Bld) 4.3 % Normal 1.7-12.0 [facility] Comment on above: Performed By: #### C BC #### [facility] [address] [place] [address] Dr. Adriana Chawla NEUT # 6.8 103/ul Critically high 1.4-6.5 [facility] Comment on above: Performed By: #### C BC #### [facility] [address] [place] [address] Dr. Adriana Chawla Neutrophils/100 WBC (Bld) 91.1 % Critically high 43.0-75.0 [facility] Comment on above: Performed By: #### C BC #### [facility] [address] [place] [address] Dr. Adriana Chawla Platelet mean volume (Bld) [Entitic vol] 8.3 fL Critically low 9.5-13.5 [facility] Comment on above: Performed By: #### C BC #### [facility] [address] [place] [address] Dr. Adriana Chawla PLT 229 103/ul Normal 150-450 [facility] Comment on above: Performed By: #### C BC #### [facility] [address] [place] [address] Dr. Adriana Chawla RBC 4.50 106/ul Normal 4.20-5.40 [facility] Comment on above: Performed By: #### C BC #### [facility] [address] [place] [address] Dr. Adriana Chawla WBC 7.5 103/ul Normal 4.0-11.0 [facility] Comment on above: Performed By: #### C BC #### [facility] [address] [place] [address] Dr. Adriana Chawla LIPASEon 08-13-2022 Lipase [Catalytic activity/Vol] 49.0 U/L Critically low 73.0-393.0 [facility] Comment on above: Performed By: #### V AGINT #### [facility] [address] [place] [address] Dr. Adriana Chawla PREG HCG QUALon 08-13-2022 , QUAL Negative Normal NEGATIVE [facility] Comment on above: Performed By: #### V AGINT #### [facility] [address] [place] [address] Dr. Adriana Chawla PROF 14(COMP METB)on 022 Albumin [Mass/Vol] 3.7 g/dL Normal 3.4-5.0 [facility] Comment on above: Performed By: #### V AGINT #### [facility] [address] [place] [address] Dr. Adriana Chawla Albumin/Globulin [Mass ratio] 1.1 {ratio} Normal [facility] Comment on above: Performed By: #### V AGINT #### [facility] [address] [place] [address] Dr. Adriana Chawla ALP [Catalytic activity/Vol] 42 U/L Critically low 46-116 [facility] Comment on above: Performed By: #### V AGINT #### [facility] [address] [place] [address] Dr. Adriana Chawla ALT [Catalytic activity/Vol] 11 U/L Critically low 14-59 [facility] Comment on above: Performed By: #### V AGINT #### [facility] [address] [place] [address] Dr. Adriana Chawla Anion gap [Moles/Vol] 13.8 mmol/L Normal [facility] Comment on above: Performed By: #### V AGINT #### [facility] [address] [place] [address] Dr. Adriana Chawla AST [Catalytic activity/Vol] 15 U/L Normal 15-37 [facility] Comment on above: Performed By: #### V AGINT #### [facility] [address] [place] [address] Dr. Adriana Chawla Bilirubin [Mass/Vol] 0.6 mg/dL Normal 0.2-1.0 [facility] Comment on above: Performed By: #### V AGINT #### [facility] [address] [place] [address] Dr. Adriana Chawla Calcium [Mass/Vol] 8.5 mg/dL Normal 8.5-10.1 [facility] Comment on above: Performed By: #### V AGINT #### [facility] [address] [place] [address] Dr. Adriana Chawla Chloride [Moles/Vol] 104 mmol/L Normal 98-107 [facility] Comment on above: Performed By: #### V AGINT #### [facility] [address] [place] [address] Dr. Adriana Chawla CO2 [Moles/Vol] 24.8 mmol/L Normal 21.0-32.0 [facility] Comment on above: Performed By: #### V AGINT #### [facility] [address] [place] [address] Dr. Adriana Chawla Creatinine [Mass/Vol] 0.57 mg/dL Normal 0.55-1.02 [facility] Comment on above: Performed By: #### V AGINT #### [facility] [address] [place] [address] Dr. Adriana Chawla EGFR-AF NIGERIAN >60 Normal >=60 [facility] Comment on above: Performed By: #### V AGINT #### [facility] [address] [place] [address] Dr. Adriana Chawla EGFR-NON AF NIGERIAN >60 Normal >=60 [facility] Comment on above: Performed By: #### V AGINT #### [facility] [address] [place] [address] Dr. Adriana Chawla Globulin (S) [Mass/Vol] 3.5 g/dL Normal [facility] Comment on above: Performed By: #### V AGINT #### [facility] [address] [place] [address] Dr. Adriana Chawla Glucose [Mass/Vol] 96 mg/dL Normal 74-106 [facility] Comment on above: Performed By: #### V AGINT #### [facility] [address] [place] [address] Dr. Adriana Chawla Potassium [Moles/Vol] 3.6 mmol/L Normal 3.5-5.1 [facility] Comment on above: Performed By: #### V AGINT #### [facility] [address] [address] [address] Adriana Chawla Protein [Mass/Vol] 7.2 g/dL Normal 6.4-8.2 [facility] Comment on above: Performed By: #### V AGINT #### [facility] [address] [place] [address] Dr. Adriana Chawla Sodium [Moles/Vol] 139 mmol/L Normal 136-145 [facility] Comment on above: Performed By: #### V AGINT #### [facility] [address] [place] [address] Dr. Adriana Chawla Urea nitrogen [Mass/Vol] 15.0 mg/dL Normal 7.0-18.0 [facility] Comment on above: Performed By: #### V AGINT #### [facility] [address] [place] [address] Dr. Adriana Chawla Urea nitrogen/Creatinine [Mass ratio] 26.3 mg/mg Normal [facility] Comment on above: Performed By: #### V AGINT #### [facility] [address] [place] [address] Dr. Adriana Chawla US PELVIS AND TRANSVAGon [...] CHRISTIAN LARA Date: 2022-08-06 17:45 Normal [facility] COVID CepheidOrdered By: Cesar Birch on 07-28-2022 SARS-CoV-2 (COVID-19) Ab IA Ql Negative Negative [facility] Comment on above: This is a duplicate Cepheid Xpert Xpress CoV-2/Flu/RSV Plus RNA by RT-PCR result to be used for statistical tracking purpose only. SARS-CoV-2 (COVID-19) RNA OLIMPIA+probe Ql (Unsp spec) [facility] COVID-19 / Flu A/B / RSV PCR [...] or Cepheid Disclaimer revoked sooner. PERFORMED BY: [place] [address] PATHOLOGIST BIT BENDER АННА AJ M.D. Normal [facility] Comment on above: Performed By: #### C OVID19 FLU RSV, CEPHEID NEG #### [address] Cepheid COVID PCR Negativeon 07-28-2022 SARS-CoV-2 (COVID-19) RNA OLIMPIA+probe Ql (Unsp spec) Negative Normal Negative [facility] Comment on above: Result Comment: This is a duplicate Cepheid Xpert Xpress CoV-2/Flu/RSV Plus RNA by RT-PCR result to be used for statistical tracking purpose only. PERFORMED BY: [place] [phone] PATHOLOGIST BIT BENDER АННА AJ M.D. Performed By: #### C OVID19 FLU RSV, CEPHEID NEG #### [address] Complete Blood Count Auto Di ffon 07-28-2022 Basophils (Bld) [#/Vol] 0.0 10*3/uL Normal 0.0-0.2 [facility] Comment on above: Result Comment: PERF ORMED BY: [place] [phone] PATHOLOGIST BIT BENDER АННА AJ M.D. Performed By: #### C MP, CBC #### [address] [place] [address] [place] Basophils/100 WBC (Bld) 0.2 % Normal . [facility] Comment on above: Performed By: #### C MP, CBC #### [address] Eosinophils (Bld) [#/Vol] 0.0 10*3/uL Normal 0.0-0.45 [facility] Comment on above: Performed By: #### C MP, CBC #### [address] Eosinophils/100 WBC (Bld) 0.2 % Normal . [facility] Comment on above: Performed By: #### C MP, CBC #### [address] Erythrocyte distribution width (RBC) [Ratio] 13.9 % Normal 11.9-15.3 [facility] Comment on above: Performed By: #### C MP, CBC #### [address] Hematocrit (Bld) [Volume fraction] 39.0 % Normal 34.0-46.4 [facility] Comment on above: Performed By: #### C MP, CBC #### [address] Hemoglobin (Bld) [Mass/Vol] 12.7 g/dL Normal 11.8-15.4 [facility] Comment on above: Performed By: #### C MP, CBC #### [address] Lymphocytes (Bld) [#/Vol] 0.3 10*3/uL Low 1.00-4.8 [facility] Comment on above: Performed By: #### C MP, CBC #### [address] Lymphocytes/100 WBC (Bld) 4.7 % Normal . [facility] Comment on above: Performed By: #### C MP, CBC #### [address] MCH (RBC) [Entitic mass] 27.6 pg Normal 24.7-34.3 [facility] Comment on above: Performed By: #### C MP, CBC #### [address] MCV (RBC) [Entitic vol] 84.5 fL Normal 80-100 [facility] Comment on above: Performed By: #### C MP, CBC #### [address] Mean Corpuscular HGB Conc 32.6 g/dL Normal 32.0-35.0 [facility] Comment on above: Performed By: #### C MP, CBC #### [address] Monocytes (Bld) [#/Vol] 0.2 10*3/uL Normal 0.0-0.8 [facility] Comment on above: Performed By: #### C MP, CBC #### [address] Monocytes/100 WBC (Bld) 22.31 % High 0.00-20.00 [facility] Comment on above: Result Comment: For adults in ED, MDW > 20.0 may be associated with a higher risk of sepsis during the first 12 hrs of hospital admission Performed By: #### C MP, CBC #### [address] Monocytes/100 WBC (Bld) 3.3 % Normal . [facility] Comment on above: Performed By: #### C MP, CBC #### [address] Neutrophils (Bld) [#/Vol] 6.3 10*3/uL Normal 1.8-7.7 [facility] Comment on above: Performed By: #### C MP, CBC #### [address] Neutrophils/100 WBC (Bld) 91.6 % Normal . [facility] Comment on above: Performed By: #### C MP, CBC #### [place] [address] NRBC% 0.0 /100{WBC} Normal 0-0.5 [facility] Comment on above: Performed By: #### C MP, CBC #### [address] Platelet mean volume (Bld) [Entitic vol] 6.8 fL Normal 6.3-10.7 [facility] Comment on above: Performed By: #### C MP, CBC #### [address] Platelets (Bld) [#/Vol] 240 10*3/uL Normal 150-450 [facility] Comment on above: Performed By: #### C MP, CBC #### [address] RBC (Bld) [#/Vol] 4.61 10*6/uL Normal 3.60-5.00 [facility] Comment on above: Performed By: #### C MP, CBC #### [address] WBC (Bld) [#/Vol] 6.9 10*3/uL Normal 3.8-11.6 [facility] Comment on above: Performed By: #### C MP, CBC #### [address] Comprehensive Metabolic Pane makayla 07-28-2022 Albumin [Mass/Vol] 4.2 g/dL Normal 3.2-5.5 [facility] Comment on above: Performed By: #### C MP, CBC #### [address] Albumin/Globulin [Mass ratio] 1.4 {ratio} Normal [facility] Comment on above: Performed By: #### C MP, CBC #### [address] ALP [Catalytic activity/Vol] 38 U/L Normal 32-92 [facility] Comment on above: Performed By: #### C MP, CBC #### [facility] [address] ALT [Catalytic activity/Vol] 16 U/L Normal 10-60 [facility] Comment on above: Performed By: #### C MP, CBC #### [facility] [address] Anion gap [Moles/Vol] 13.8 mmol/L Normal 6.0-15.0 [facility] Comment on above: Performed By: #### C MP, CBC #### [facility] [address] AST [Catalytic activity/Vol] 18 U/L Normal 10-42 [facility] Comment on above: Performed By: #### C MP, CBC #### [facility] [address] Bilirubin [Mass/Vol] 1.1 mg/dL Normal 0.3-1.2 [facility] Comment on above: Performed By: #### C MP, CBC #### [facility] [address] [place] [address] Calcium [Mass/Vol] 9.1 mg/dL Normal 8.2-10.2 [facility] Comment on above: Performed By: #### C MP, CBC #### [facility] [address] [place] [address] Chloride [Moles/Vol] 100 mmol/L Normal 95-114 [facility] Comment on above: Performed By: #### C MP, CBC #### [facility] [address] CO2 [Moles/Vol] 24.8 mmol/L Normal 22.0-30.0 [facility] Comment on above: Performed By: #### C MP, CBC #### [facility] [address] Creatinine [Mass/Vol] 0.66 mg/dL Normal 0.44-1.03 [facility] Comment on above: Performed By: #### C MP, CBC #### [facility] [address] [place] [address] [place] Creatinine [facility] 93.59 [facility] Comment on above: Result Comment: PERF ORMED BY: [place] [address] PATHOLOGIST BIT BENDER АННА AJ M.D. Performed By: #### C MP, CBC #### [address] Estimated GFR ( Barbara > 60 [facility] Comment on above: Result Comment: GFR estimated reference range: According to KDOQI guidelines, <60 ml/min/1.73m2 is sufficient to diagnose a patient with chronic kidney disease. Performed By: #### C MP, CBC #### [address] Estimated GFR (Non- Am > 60 [facility] Comment on above: Performed By: #### C MP, CBC #### [address] Globulin (S) [Mass/Vol] 3.0 g/dL [facility] Comment on above: Performed By: #### C MP, CBC #### [address] Glucose [Mass/Vol] 98 mg/dL Normal 70-100 [facility] Comment on above: Result Comment: [place] Glucose Reference Range is dependent on time and content of last meal. Glucose of more than 200 mg/dL in a nonstressed, ambulatory subject supports the diagnosis of Diabetes Mellitus. ADA recommended reference range Performed By: #### C MP, CBC #### [address] Potassium [Moles/Vol] 3.6 mmol/L Normal 3.5-5.1 [facility] Comment on above: Performed By: #### C MP, CBC #### [address] Protein [Mass/Vol] 7.2 g/dL Normal 6.1-7.9 [facility] Comment on above: Performed By: #### C MP, CBC #### [facility] [address] [place] [address] [place] Sodium [Moles/Vol] 135 mmol/L Low 136-146 [facility] Comment on above: Performed By: #### C MP, CBC #### [facility] [address] [place] [address] [place] Urea nitrogen [Mass/Vol] 13 mg/dL Normal 9-23 [facility] Comment on above: Performed By: #### C MP, CBC #### [facility] [address] Basophils Auto (Bld) [#/Vol] Ordered By: Christian Birch on 07-27-2022 Basophils (Bld) [#/Vol] 0.0 10*3/uL 0.0-0.2 [facility] Basophils/100 WBC Auto (Bld) Ordered By: Christian Birch on 07-27-2022 Basophils/100 WBC (Bld) 0.2 % . [facility] Body fluid albumin measureme nt (mass/volume)Ordered By: Christian Birch on 07-27-2022 Albumin (Body fld) [Mass/Vol] 4.2 g/dL 3.2-5.5 [facility] Creatinine and Glomerular fi ltration rate.predicted panel (S/P/Bld)Ordered By: Christian Birch on 07-27-2022 Creatinine [Mass/Vol] 0.66 mg/dL 0.44-1.03 [facility] Eosinophils Auto (Bld) [#/Vo l]Ordered By: Christian Birch on 07-27-2022 Eosinophils (Bld) [#/Vol] 0.0 10*3/uL 0.0-0.45 [facility] Eosinophils/100 WBC Auto (Bl d)Ordered By: Christian Birch on 07-27-2022 Eosinophils/100 WBC (Bld) 0.2 % . [facility] Erythrocyte distribution wid th Auto (RBC) [Ratio]Ordered By: Christian Birch on 07-27-2022 Erythrocyte distribution width (RBC) [Ratio] 13.9 % 11.9-15.3 [facility] Estimated glomerular filtrat ion rate (GFR) non- AmericanOrdered By: Christian Birch on 07-27-2022 GFR/1.73 sq M.predicted among non-blacks MDRD (S/P/Bld) [Vol rate/Area] > 60 mL/Min [facility] Globulin Calc (S) [Mass/Vol] Ordered By: Christian Birch on 07-27-2022 Globulin (S) [Mass/Vol] 3.0 g/dL [facility] Hematocrit Auto (Bld) [Volum e fraction]Ordered By: Christian Birch on 07-27-2022 Hematocrit (Bld) [Volume fraction] 39.0 % 34.0-46.4 [facility] Hemoglobin [Mass/volume] in BloodOrdered By: Christian Birch on 07-27-2022 Hemoglobin (Bld) [Mass/Vol] 12.7 g/dL 11.8-15.4 [facility] Leukocytes [#/volume] correc lucho for nucleated erythrocytes in Blood by Automated counOrdered By: Christian Birch on 07-27-2022 WBC corrected for nucl RBC Auto (Bld) [#/Vol] 6.9 10*3/uL 3.8-11.6 [facility] Lymphocytes Auto (Bld) [#/Vo l]Ordered By: Christian Birch on 07-27-2022 Lymphocytes (Bld) [#/Vol] 0.3 10*3/uL 1.00-4.8 [facility] Lymphocytes/100 WBC Auto (Bl d)Ordered By: Christian Birch on 07-27-2022 Lymphocytes/100 WBC (Bld) 4.7 % . [facility] MCH Auto (RBC) [Entitic mass ]Ordered By: Christian Birch on 07-27-2022 MCH (RBC) [Entitic mass] 27.6 pg 24.7-34.3 [facility] MCHC Auto (RBC) [Mass/Vol]Or dered By: Christian Birch on 07-27-2022 MCHC (RBC) [Mass/Vol] 32.6 g/dL 32.0-35.0 [facility] MCV Auto (RBC) [Entitic vol] Ordered By: Christian Birch on 07-27-2022 MCV (RBC) [Entitic vol] 84.5 fL 80-100 [facility] Monocyte distribution width [Entitic volume] in Blood by AutomatedOrdered By: Christian Birch on 07-27-2022 Monocyte distribution width Auto (Bld) [Entitic vol] 22.31 % 0.00-20.00 [facility] Comment on above: For adults in ED, MD W > 20.0 may be associated with a higher risk of sepsis during the first 12 hrs of hospital admission Monocytes Auto (Bld) [#/Vol] Ordered By: Christian Birch on 07-27-2022 Monocytes (Bld) [#/Vol] 0.2 10*3/uL 0.0-0.8 [facility] Monocytes/100 WBC Auto (Bld) Ordered By: Christian Birch on 07-27-2022 Monocytes/100 WBC (Bld) 3.3 % . [facility] Neutrophils Auto (Bld) [#/Vo l]Ordered By: Christian Birch on 07-27-2022 Neutrophils (Bld) [#/Vol] 6.3 10*3/uL 1.8-7.7 [facility] Neutrophils/100 WBC Auto (Bl d)Ordered By: Christian Birch on 07-27-2022 Neutrophils/100 WBC (Bld) 91.6 % . [facility] No Panel InformationOrdered By: Christian Birch on 07-27-2022 Estimated GFR () > 60 mL/Min [facility] Comment on above: GFR estimated refere nce range: According to KDOQI guidelines, <60 ml/min/1.73m2 is sufficient to diagnose a patient with chronic kidney disease. Pharmacy Creatinine Clearance (Chem 93.59 [facility] Nucleated erythrocytes [Pres ence] in Blood by Automated countOrdered By: Christian Birch on 07-27-2022 Nucleated RBC Auto Ql (Bld) 0.0 /100{WBC} 0-0.5 [facility] Platelet mean volume Auto (B ld) [Entitic vol]Ordered By: Christian Birch on 07-27-2022 Platelet mean volume (Bld) [Entitic vol] 6.8 fL 6.3-10.7 [facility] Platelets Auto (Bld) [#/Vol] Ordered By: Christian Birch on 07-27-2022 Platelets (Bld) [#/Vol] 240 10*3/uL 150-450 [facility] Protein [Mass/volume] in Ser um or PlasmaOrdered By: Christian Birch on 07-27-2022 Protein [Mass/Vol] 7.2 g/dL 6.1-7.9 [facility] RBC Auto (Bld) [#/Vol]Ordere d By: Christian Birch on 07-27-2022 RBC (Bld) [#/Vol] 4.61 10*6/uL 3.60-5.00 [facility] Serum or plasma alanine arshad otransferase measurement without P-5'-P (enzymatic activiOrdered By: Christian Birch on 07-27-2022 ALT No additional P-5'-P [Catalytic activity/Vol] 16 U/L 10-60 [facility] Serum or plasma albumin/glob ulin mass ratioOrdered By: Christian Birch on 07-27-2022 Albumin/Globulin [Mass ratio] 1.4 {ratio} [facility] Serum or plasma alkaline boston sphatase measurement (enzymatic activity/volume)Ordered By: Christian Birch on 07-27-2022 ALP [Catalytic activity/Vol] 38 U/L 32-92 [facility] Serum or plasma anion gap de terminationOrdered By: Christian Birch on 07-27-2022 Anion gap [Moles/Vol] 13.8 mmol/L 6.0-15.0 [facility] Serum or plasma aspartate am inotransferase measurement (enzymatic activity/volume)Ordered By: Christian Birch on 07-27-2022 AST [Catalytic activity/Vol] 18 U/L 10-42 [facility] Serum or plasma calcium marcos urement (mass/volume)Ordered By: Christian Birch on 07-27-2022 Calcium [Mass/Vol] 9.1 mg/dL 8.2-10.2 [facility] Serum or plasma chloride carlos surement (moles/volume)Ordered By: Chrsitian Birch on 07-27-2022 Chloride [Moles/Vol] 100 mmol/L 95-114 [facility] Serum or plasma glucose marcos urement (mass/volume)Ordered By: Christian Birch on 07-27-2022 Glucose [Mass/Vol] 98 mg/dL 70-100 [facility] Comment on above: ADA recommended refe rence rangeRandom Glucose Reference Range is dependent on time and content of last meal. Glucose of more than 200 mg/dL in a nonstressed, ambulatory subject supports the diagnosis of Diabetes Mellitus. Serum or plasma potassium me asurement (moles/volume)Ordered By: Christian Birch on 07-27-2022 Potassium [Moles/Vol] 3.6 mmol/L 3.5-5.1 [facility] Serum or plasma sodium measu rement (moles/volume)Ordered By: Christian Birch on 07-27-2022 Sodium [Moles/Vol] 135 mmol/L 136-146 [facility] Serum or plasma total biliru bin measurement (mass/volume)Ordered By: Christian Birch on 07-27-2022 Bilirubin [Mass/Vol] 1.1 mg/dL 0.3-1.2 [facility] Serum or plasma total carbon dioxide measurement (moles/volume)Ordered By: Christian Birch on 07-27-2022 CO2 [Moles/Vol] 24.8 mmol/L 22.0-30.0 [facility] Serum or plasma urea nitroge n measurement (mass/volume)Ordered By: Christian Birch on 07-27-2022 Urea nitrogen [Mass/Vol] 13 mg/dL 9- [facility] WBC Auto (Bld) [#/Vol]Ordere d By: Christian Birch on 07-27-2022 WBC (Bld) [#/Vol] 6.9 10*3/uL 3.8-11.6 [facility] PAP ACOG PANEL 2: 21 to 31on 07-07-2022 . . Normal [facility] Comment on above: Performed By: #### G IPANEL #### [facility] [address] [address] [address] Adriana Chawla Age Gdln ACOG Testing 23- Normal [facility] Comment on above: Performed By: #### G IPANEL #### [facility] [address] [address] [address] Adriana Chawla DIAGNOSIS: Comment [facility] Comment on above: Result Comment: NEGA TIVE FOR INTRAEPITHELIAL LESION OR MALIGNANCY. Performed By: #### G IPANEL #### [facility] [address] [address] [address] Adriana Chawla Methodology: Comment Normal [facility] Comment on above: Result Comment: This liquid based ThinPrep(R) pap test was screened with the use of an image guided system. Performed By: #### G IPANEL #### [facility] [address] [place] [address] Dr. Adriana Chawla Note: Comment Normal [facility] Comment on above: Result Comment: The Pap smear is a screening test designed to aid in the detection of premalignant and malignant conditions of the uterine cervix. It is not a diagnostic procedure and should not be used as the sole means of detecting cervical cancer. Both false-positive and false-negative reports do occur. . Performed By: #### G IPANEL #### [facility] [address] [place] [address] Dr. Adriana Chawla Performed by: Comment Normal [facility] Comment on above: Result Comment: Sam Bush, Scrap Picker (ASCP) Performed By: #### G IPANEL #### [facility] [address] [place] [address] Dr. Adriana Chawla Reflex Criteria: Comment Normal [facility] Comment on above: Result Comment: The HPV DNA reflex criteria were not met with this specimen result therefore, no HPV testing was performed. . Performed By: #### G IPANEL #### [facility] [address] [place] [address] Dr. Adriana Chawla Specimen adequacy: Comment Normal [facility] Comment on above: Result Comment: Sati sfactory for evaluation. Endocervical and/or squamous metaplastic cells (endocervical component) are present. Performed By: #### G IPANEL #### [facility] [address] [place] [address] Dr. Adriana Chawla CHLAMYDIA/GONOCOCCUS OLIMPIA (SW AB/URINE/PAPon 07-01-2022 Chlamydia trachomatis, OLIMPIA Negative Normal Negative [facility] Comment on above: Performed By: #### V AGINT #### [facility] [address] [place] [address] Dr. Adriana Chawla Neisseria gonorrhoeae, OLIMPIA Negative Normal Negative [facility] Comment on above: Performed By: #### V AGINT #### [facility] [address] [address] [address] Adriana Chawla VAGINITIS/VAGINOSIS DNA PROB Richard 07-01-2022 Lilli species Negative Normal Negative [facility] Comment on above: Performed By: #### V AGINT #### [facility] [address] [address] [address] Adriana Chawla Gardnerella vaginalis Negative Normal Negative [facility] Comment on above: Performed By: #### V AGINT #### [facility] [address] [address] [address] Adriana Chawla Trichomonas vaginalis Negative Normal Negative [facility] Comment on above: Performed By: #### V AGINT #### [facility] [address] [address] [address] Adriana Chawla US PELVIS AND TRANSVAGon [...] LOR ROSARIO Date: 2022-06-17 18:21 Normal [facility] Vital Signs Date Time Vital Sign Value Performing Clinician Faci lity 10-29-2022 22:28-0400 Diastolic blood pressure 56 mm[Hg] MD Chinmay Fernandez Work Phone: [facility] 10-29-2022 22:28-0400 Heart rate 76 /min MD Chinmay Fernandez Work Phone: [facility] 10-29-2022 22:28-0400 Respiratory rate 18 /min MD Chinmay Fernandez Work Phone: [facility] 10-29-2022 22:28-0400 SaO2% (BldA) [Mass fraction] 98 % MD Chinmay Fernandez Work Phone: [facility] 10-29-2022 22:28-0400 Systolic blood pressure 99 mm[Hg] MD Chinmay Fernandez Work Phone: [facility] 10-29-2022 16:11-0400 Body height 152.4 cm MD Chinmay Fernandez Work Phone: [facility] 10-29-2022 16:11-0400 Body temperature 98.5 [degF] MD Chinmay Fernandez Work Phone: [facility] 10-29-2022 16:11-0400 Body weight 48.55 kg MD Chinmay Fernandez Work Phone: [facility] 07-28-2022 02:35-0500 Body temperature 98.8 [degF] MD Chinmay Fernandez Work Phone: [facility] 07-28-2022 02:35-0500 Diastolic blood pressure 56 mm[Hg] MD Chinmay Fernandez Work Phone: [facility] 07-28-2022 02:35-0500 Heart rate 98 /min MD Chinmay Fernandez Work Phone: [facility] 07-28-2022 02:35-0500 Respiratory rate 20 /min MD Chinmay Fernandez Work Phone: [facility] 07-28-2022 02:35-0500 SaO2% (BldA) [Mass fraction] 98 % MD Chinmay Fernandez Work Phone: [facility] 07-28-2022 02:35-0500 Systolic blood pressure 102 mm[Hg] MD Chinmay Fernandez Work Phone: [facility] 07-27-2022 21:13-0500 Body height 152.4 cm MD Chinmay Fernandez Work Phone: [facility] 07-27-2022 21:13-0249 Body weight 49.05 kg MD Chinmay Fernandez Work Phone: [facility] Encounters Encounter Date Encounter Type Care Provider Facility Start: 12-15-2023 End: 12-15-2023 ambulatory VICTOR HUGO WADE Not Available Start: 12-01-2022 End: 12-02-2022 ambulatory Ayo MCCOLLUM Facility: [facility] Start: 11-04-[address] CHINMAY FERNANDEZ . Facili ty:[facility] Start: 11-03-2022 End: 11-03-[address] CHINMAY FERNANDEZ . Facility:[facility] Start: 10-29-2022 End: 10-30-2022 Emergency department patient visit Robert Jacobson Facility:[facility] Start: 10-29-2022 End: 10-29-2022 Emergency department patient visit MD Chinmay Fernandez Work Phone: [facility] Work Phone: Start: 10-22-2022 End: 10-23-[address] MIKEY LONGORIA . Facility:[facility] Start: 10-22-2022 End: 10-22-[address] CHINMAY FERNANDEZ . Facility:[facility] Start: 08-13-2022 End: 08-13-[address] CHINMAY FERNANDEZ . Facility:[facility] Start: 08-05-2022 End: 08-06-[address] CHINMAY FERNANDEZ . Facility:[facility] Start: 07-27-2022 End: 07-28-2022 Emergency department patient visit Christian Birch Jr Facility:[facility] Start: 07-27-2022 End: 07-28-2022 Emergency department patient visit MD Chinmay Fernandez Work Phone: [facility] Start: 06-29-2022 End: 06-29-2022 [...] 10-29-2022 Bacteria identified in Urine by Culture [facility] Start: 07-27-2022 [facility] Patient Education [facility] Work Phone: Patient referral [facility] Work Phone: Payers Date Payer Category Payer Private Health Insurance [id number] 1997 Unknown [id number] 2.16.84 [id number] 1997 Unknown [id number] 2.16.84 [id number] 1997 Unknown [id number] 2.16.84 [id number] 1997 Unknown [id number] 2.16.84 [id number] 1997 Unknown [id number] 2.16.84 [id number] 1997 Unknown [id number] 2.16.84 [id number] 1997 Unknown [id number] 2.16.84 [id number] 1997 Unknown [id number] 2.16.84 [id number] 1997 Unknown [id number] 2.16.8 [id number] 1997 Unknown [id number] 2.16.84 [id number] 1959 Self-pay 1959 Unknown [id number] Unknown [id number] 2.16.8 [id number] Unknown [id number] 2.16.8 [id number] Social History Date Type Detail Facility Start: 07-27-2022 End: 10-29-2022 Tobacco smoking status NHIS Never smoked tobacco (finding) [facility] Start: 1995 Sex Assigned At Female F [facility] Clinical Note 12-01-2022 Note Date & Type Note Facility 12-01-2022 Note Chief Complaint consultation for abdominal pain HPI Staff 27 year old female presents on consultation from Dr. Fernandez for abdominal pain. Presented to [facility] ED 10/22 with complaint of right sided abdominal pain and nausea. Prescribed Bentyl. Returned to ED several hours later with continued abdominal pain and new onset diarrhea and chills. Initially CT unremarkable to suboptimal evaluation. Repeat CT again unremarkable. Presented to [facility] ED 10/29 with RUQ pain, nausea and vomiting. Gallbladder US- normal. Stool studies completed 11/03 with positive c.diff.; prescribed Metronidazole 250mg QID x 10 days and Vancomycin 125mg QID x 10 days. Was on Cipro for UTI; [facility] changed this to Keflex due to patient [...] List/Past Medical History (more content not included)... [facility] Comment on above: Result Comment: Elec tronically Signed By: CHUN WATT, Ayo Killian\Date and Time Signed: 12/01/22 19:24 EDT Evaluation note Note Date & Type Note Facility Evaluation note [facility] Chief Complaint and Reason for [...] section and content) DATE CREATED AUTHOR 10/31/2022 [facility] DATE CREATED AUTHOR AUTHOR'S ORGANIZ ATION 11/14/2022 [facility] DATE CREATED AUTHOR AUTHOR'S ORGANIZ ATION 12/03/2022 [facility] DATE CREATED AUTHOR AUTHOR'S ORGANIZ ATION 12/17/2023 [facility] FOR RECORDS PERTAINING TO PATIENTS WHO ARE [...] BE BASED ON THE PRIMARY CLINICAL RECORDS. [facility] [employer] provides no warranty or guarantee of the accuracy or completeness of information in this document.
--- NOTE | 2024-08-11 22:47 | ED.NAVMDI1 ---
HPI - Nausea/Vomiting/Diarrhea General Chief complaint: Nausea/Vomiting/Diarrhea Stated complaint: VOMITING Time Seen by Provider: 08/11/24 22:35 Source: patient Mode of arrival: walk-in Limitations: no limitations History of Present Illness HPI Narrative: 29-year-old female presents for nausea and vomiting which started this morning. She has not been around any ill people and her significant other ate the same food as she and he did not get sick. She has had no fever or hematemesis or diarrhea. She is not complaining of abdominal pain. Related Data Previous Rx's ?Medication ?Instructions ?Recorded promethazine 25 mg tablet 25 mg PO Q6H PRN nausea and 08/12/24 vomiting #14 tabs Allergies Allergy/AdvReac Type Severity Reaction Status Date / Time amoxicillin Allergy Severe Hives Verified 08/11/24 22:33 Review of Systems ROS Narrative A ten point review of systems is negative except as noted above. PFSH PFSH Social History Little interest or pleasure in doing things: not at all Feeling down, depressed, or hopeless: not at all Exam Narrative Exam Narrative: Nurses note and vital signs reviewed and patient is not hypoxic. General: The patient appears in no apparent distress. Patient is resting comfortably on cart. Skin: Warm, dry, pallor noted. There is no rash noted. Head: Normocephalic, atraumatic Eye: Normal conjunctiva, no drainage Ears, Nose, Mouth, and Throat: oral mucosa is moist. Nares patent. Cardiovascular: Regular Rate and Rhythm Respiratory: Patient is in no distress, no accessory muscle use, lungs are clear to auscultation, no wheezing, rales or rhonchi Back: non-tender GI: Soft and nontender Musculoskeletal: The patient has no evidence of calf tenderness, no pitting edema, symmetrical pulses noted bilaterally Neurological: A&O, normal speech Psychiatric: Cooperative Constitutional Vital Signs, click to edit/add: Last Vital Signs Temp 98.5 F 08/11/24 22:33 Pulse 107 H 08/11/24 22:33 Resp 18 08/11/24 22:33 BP 110/74 08/11/24 22:33 Pulse Ox 100 08/11/24 22:33 O2 Del Method Room Air 08/11/24 22:33 Course Vital Signs Vital signs: Vital Signs Temperature 98.5 F 08/11/24 22:33 Pulse Rate 107 H 08/11/24 22:33 Respiratory Rate 18 08/11/24 22:33 Blood Pressure 110/74 08/11/24 22:33 Pulse Oximetry 100 08/11/24 22:33 Oxygen Delivery Method Room Air 08/11/24 22:33 Temperature 98.5 F 08/11/24 22:33 Pulse Rate 107 H 08/11/24 22:33 Respiratory Rate 18 08/11/24 22:33 Blood Pressure 110/74 08/11/24 22:33 Pulse Oximetry 100 08/11/24 22:33 Oxygen Delivery Method Room Air 08/11/24 22:33 MDM - Nausea/Vomiting/Diarrhea MDM Narrative Medical decision making narrative: Blood work is essentially normal. She is not . She was given IV fluids and Zofran and Phenergan and is discharged home on Phenergan. Treatment diagnosis and follow-up were discussed with the patient. Differential Diagnosis Differential diagnosis: Likely food poisoning, gastroenteritis and dehydration Lab Data Attestation: I reviewed the patient's lab results. Labs: Lab Results 08/11/24 Range/Units 22:48 WBC 7.0 (4.0-11.0) 10^3/uL RBC 4.51 (4.20-5.40) 10^6/uL Hgb 13.1 (12.0-16.0) g/dL Hct 39.2 (36.0-48.0) % MCV 86.9 (81.0-99.0) fL MCH 29.0 (26.7-34.0) pg MCHC 33.4 (29.9-35.2) g/dL RDW 11.9 (11.0-15.0) % Plt Count 245 (150-450) 10^3/uL MPV 9.0 L (9.5-13.5) fL Seg Neuts % (Manual) 93.0 H (43.0-75.0) Lymphocytes % (Manual) 5.0 L (20.5-60.0) % Monocytes % (Manual) 2.0 (1.7-12.0) % Eosinophils % (Manual) 0.0 L (0.9-7.0) % Basophils % (Manual) 0.0 L (0.2-2.0) % Neutrophils # (Manual) 6.51 H (1.4-6.5) 10^3/uL Lymphocytes # (Manual) 0.35 L (1.20-3.80) 10^3/uL Monocytes # (Manual) 0.14 L (0.30-0.80) 10^3/uL Eosinophils # (Manual) 0.00 (0.00-0.70) 10^3/uL Basophils # (Manual) 0.00 (0.00-0.10) 10^3/uL Sodium 138 (136-145) mmol/L Potassium 3.5 (3.5-5.1) mmol/L Chloride 104 (98-107) mmol/L Carbon Dioxide 24.0 (21.0-32.0) mmol/L Anion Gap 13.5 BUN 21.0 H (7.0-18.0) mg/dL Creatinine 0.75 (0.55-1.02) mg/dL Est GFR ( Amer) >60 (>=60 mL/min/1.73m^2) Est GFR (Non-Af Amer) >60 (>=60 mL/min/1.73m^2) BUN/Creatinine Ratio 28.0 Glucose 106 (74-106) mg/dL Calcium 8.7 (8.5-10.1) mg/dL Serum HCG, Qual Negative (NEGATIVE) Discharge Plan Discharge Chief Complaint: Nausea/Vomiting/Diarrhea Clinical Impression: Nausea and vomiting Patient Disposition: Home, Self-Care Time of Disposition Decision: 00:41 Condition: Good Mode of Transportation: Private Vehicle Prescriptions / Home Meds: New promethazine 25 mg tablet 25 mg PO Q6H PRN (Reason: nausea and vomiting) Qty: 14 0RF Print Language: Amharic Instructions: Acute Nausea and Vomiting (ED) Referrals: Brian Fernandez MD [Primary Care Provider] - 1 week
[2024-08-11 23:07] LABS: Hematocrit 39.2 % (36.0-48.0); Hemoglobin 13.1 g/dL (12.0-16.0); Mean Corpuscular HGB Conc 33.4 g/dL (29.9-35.2); Mean Corpuscular Volume 86.9 fL (81.0-99.0); Platelet Count 245 10^3/uL (150-450); Red Blood Count 4.51 10^6/uL (4.20-5.40); Red Cell Distribution Width 11.9 % (11.0-15.0)
[2024-08-11 23:11] LABS: HCG Qualitative NEGATIVE (NEGATIVE); Internal Control Within Normal Limits
[2024-08-11] MEDS: ONDANSETRON PF 4 MG/2 ML VIAL IV (23:12)
[2024-08-11] MEDS: 0.9 % SODIUM CHLORIDE 1,000 ML 1000 ML IV (23:12)
[2024-08-11 23:16] LABS: Anion Gap 13.5; Calcium 8.7 mg/dL (8.5-10.1); Chloride 104 mmol/L (98-107); Estimated GFR (African America >60 (>=60 mL/min/1.73m^2); Estimated GFR (Non-African Ame >60 (>=60 mL/min/1.73m^2); Glucose 106 mg/dL (74-106); Potassium 3.5 mmol/L (3.5-5.1); Sodium 138 mmol/L (136-145)
[2024-08-11 23:21] LABS: Lymphocytes Absolute Manual 0.35 10^3/uL (1.20-3.80); Monocytes Absolute Manual 0.14 10^3/uL (0.30-0.80); Segmented Neut Absolute Manual 6.51 10^3/uL (1.4-6.5)
[2024-08-11] MEDS: PROMETHAZINE HCL 12.5 MG in 0.9 % SODIUM CHLORIDE 50 ML 202 MG IV (23:58)
[2024-08-12 00:53] VITALS: BP 95/49; PULSE 100; O2SAT 97
== END 2024-08-12 00:54 | disposition home or self-care (01) ==
PROVIDERS: Emergency Provider Emergency Medicine; PCP Family Medicine
DX: R11.2 Nausea with vomiting, unspecified (principal)
CPT/HCPCS: 36415; 80048; 84703; 85007; 85027; 96361; 96365; 96375; 99284; J2405; J2550